=== PATIENT | female | born 1945 | race Caucasian/White ===

== ENCOUNTER → 2017-02-28 | Outpatient (CLI) | payer MEDICARE ==
[2017-02-28 13:02] LABS: Blood Urea Nitrogen 19 mg/dL (7-17); Non-African American GFR(MDRD) >60 (>60 ml/min/1.73 sqM)
--- NOTE | 2017-02-28 14:41 | CT ---
EXAMINATION TYPE: CT abdomen pelvis w con DATE OF EXAM: 02/28/2017 COMPARISON: NONE INDICATION: Patient has no complaints at time of service. Follow up study for known uterine CA. DLP: 1804 mGycm, Automated exposure control for dose reduction was used. CONTRAST: 100 mL of Omnipaque 300. Study performed with Oral Contrast TECHNIQUE: Axial images were obtained from above the diaphragm to the pubic rami in the axial plane a t 5 mm thick sections. Reconstructed images are reviewed on the computer in the coronal plane. FINDINGS: Limited CT sections are obtained the lung bases. The lung bases are clear. There is a consolidation at the left lung base. Correlate for pneumonia. Underlying mass is not excluded. One area measures 0 .9 cm in the posterior medial left lung base. A second area measures approximately 3.5 x 2.5 cm. This was not present previously. Coronary artery calcifications present. CT ABDOMEN: Liver: There is moderate fatty infiltration liver. Spleen: Normal Pancreas: Atrophic Adrenal glands: The adrenal glands are normal. Gallbladder: Normal Kidneys: No masses are evident. No hydronephrosis is present. No cysts are present. Delayed images were obtained through the kidneys, which remain unremarkable. Aorta: Vascular calcification is within the aorta. Inferior vena cava: Normal. CT PELVIS: Loops of bowel within the abdomen and pelvis are normal. Diverticulosis without acute diverticuli tis is through the sigmoid colon. Appendix: Normal as visualized. Urinary bladder: Normal. Genitourinary structures: Uterus and ovaries are surgically absent. Osseous structures: No suspicious lytic or sclerotic lesions. IMPRESSIONS: 1. Diverticulosis without acute diverticulitis. 2. Left base areas of increased density. Consolidation from pneumonia or metastatic disease could be considered. Clinical correlation and follow-up is recommended.
== END | disposition home or self-care (01) ==
LOC: RADCTMAIN 12:13
PROVIDERS: ATTEND Internal Medicine Hematology & Oncology
DX: K57.90 Diverticulosis of intestine, part unspecified, without perforation or abscess without bleeding (principal); R93.5 Abnormal findings on diagnostic imaging of other abdominal regions, including retroperitoneum; C54.9 Malignant neoplasm of corpus uteri, unspecified
CPT/HCPCS: 82565; 84520; 74177; 36415; Q9967

== ENCOUNTER → 2018-02-26 | Outpatient (CLI) | payer MEDICARE ==
--- NOTE | 2018-02-26 12:06 | CT ---
EXAMINATION TYPE: CT ChestAbdPelvis w con DATE OF EXAM: 02/26/2018 COMPARISON: 04/04/2017 and 02/28/2017 HISTORY: Malignant neoplasm of corpus uteri CT DLP: 1716.60 mGycm CONTRAST: CT scan of the chest, abdomen and pelvis is performed with Oral Contrast and with IV Contrast, patien t injected with 100 ml mL of Isovue 300. CT Chest: LUNGS: The lungs are clear and free of infiltrate or atelectasis. No pulmonary nodule or mass is det ected. No pleural effusion or CT evidence of interstitial lung disease. MEDIASTINUM: Thoracic aorta is of normal caliber. The heart is not enlarged. No evidence for media stinal mass or adenopathy. HILAR STRUCTURES: No evidence for mass. No hilar adenopathy is appreciated. OTHER: No significant abnormality. CONTRAST CT ABDOMEN AND PELVIS FINDINGS: LIVER/GB: No calcified gallstones. No space occupying hepatic lesion. Biliary tree is of normal ca liber. PANCREAS: No inflammation. No distinct mass. SPLEEN: No splenic enlargement. No lesion seen. ADRENALS: No nodule. No thickening. KIDNEYS/BLADDER: No hydronephrosis. No nephrolithiasis. No distinct solid renal mass. BOWEL: Normal appendix. Normal bowel caliber. No inflammation. Sigmoid diverticulosis without diver ticulitis. GENITAL ORGANS: Hysterectomy changes noted. Vaginal cuff is unremarkable. No adnexal masses. LYMPH NODES: No greater than 1cm abdominal or pelvic lymph nodes are appreciated. AORTA: No significant abnormality. OSSEOUS STRUCTURES: No significant abnormality is seen. OTHER: No significant additional abnormality is seen. IMPRESSION: 1. No evidence for recurrent disease or metastatic disease.
== END ==
LOC: RADCTMAIN 09:34
PROVIDERS: ATTEND Internal Medicine Hematology & Oncology
DX: C54.9 Malignant neoplasm of corpus uteri, unspecified (principal); R91.8 Other nonspecific abnormal finding of lung field
CPT/HCPCS: 82565; 84520; 71260; 74177; 36415; Q9967

== ENCOUNTER → 2018-07-11 | Outpatient (CLI) | payer MEDICARE ==
--- NOTE | 2018-07-13 09:19 | MM ---
Reason for exam: screening (asymptomatic). Last mammogram was performed 2 years and 2 months ago. History: Patient is postmenopausal, history of other cancer, and is nulliparous. Family history of breast cancer in mother at age 88. Benign left breast aspiration of the left breast, November 30, 2012. Physical Findings: A clinical breast exam by your physician is recommended on an annual basis and results should be correlated with mammographic findings. MG 3D Screening Mammo W/Cad Bilateral CC and MLO view(s) were taken. Prior study comparison: May 25, 2016, bilateral MG 3d screening mammo w/cad. November 29, 2013, bilateral MG screening mammo w CAD. The breast tissue is almost entirely fat. There seems to be a new medial superior skin lesion on the right. ASSESSMENT: Negative, BI-RAD 1 RECOMMENDATION: Routine screening mammogram of both breasts in 1 year. Manage on a clinical basis. Possible new medial right breast skin lesion.
== END | disposition home or self-care (01) ==
LOC: RADMAMWWP 11:31
PROVIDERS: ATTEND Family Medicine
DX: Z12.31 Encounter for screening mammogram for malignant neoplasm of breast (principal)
CPT/HCPCS: 77063; 77067

== ENCOUNTER → 2019-02-26 | Outpatient (CLI) | payer MEDICARE ==
--- NOTE | 2019-02-26 11:55 | CT ---
EXAMINATION TYPE: CT abdomen pelvis w con DATE OF EXAM: 02/26/2019 COMPARISON: 02/26/2018 HISTORY: 74-year-old female Uterine CA TECHNIQUE: Contiguous axial scanning of the abdomen and pelvis following administration of 100 ml Iso ralph 300 IV contrast. Delayed images through the kidneys and coronal/sagittal reconstructions perform ed. CT DLP: 1926.3 mGycm Automated exposure control for dose reduction was used. FINDINGS: Heart border line enlarged with extensive coronary vessel calcifications. Mitral annular calcificatio ns and aortic valvular calcifications are also noted. Large caliber to the main right pulmonary arter y 3.0 cm suggest underlying pulmonary arterial hypertension. Strandy lower lung atelectasis. No pleur al effusion. No focal liver lesion or biliary ductal dilatation. Portal venous system is patent. Gallbladder, right adrenal gland, kidneys, spleen, and atrophic pancreas show no abnormality. Minimal 7 mm nodularity of the left adrenal gland is unchanged. No dilated small bowel, free fluid, or free air. No mesenteric or retroperitoneal lymphadenopathy. Normal appendix. Mild to moderate stool burden. Left colonic diverticulosis without pericolonic infla mmatory change. Mild atherosclerotic calcifications abdominal aorta and iliac arteries. Tiny fatty umbilical hernia. Bladder partially distended. Uterus and ovaries surgically absent. Multiple pelvic phleboliths. No ab normal fluid collection in the pelvis or pelvic lymphadenopathy. Bones: Degenerative changes at the hips. Moderate to advanced multilevel degenerative disc disease th roughout the lumbar spine with grade 1 retrolisthesis at L2-L3 and L3-L4. Hypertrophic facet arthropa thy. IMPRESSION: 1. STATUS POST HYSTERECTOMY AND BILATERAL SALPINGO-OOPHORECTOMY. NO EVIDENCE FOR METASTATIC DISEASE I N THE ABDOMEN OR PELVIS. 2. LEFT-SIDED COLONIC DIVERTICULOSIS WITHOUT ACUTE DIVERTICULITIS.
== END | disposition home or self-care (01) ==
LOC: RADCTMAIN 08:58
PROVIDERS: ATTEND Internal Medicine Hematology & Oncology
DX: Z08 Encounter for follow-up examination after completed treatment for malignant neoplasm (principal); K57.30 Diverticulosis of large intestine without perforation or abscess without bleeding; Z90.710 Acquired absence of both cervix and uterus; Z90.722 Acquired absence of ovaries, bilateral; Z85.42 Personal history of malignant neoplasm of other parts of uterus
CPT/HCPCS: 82565; 84520; 74177; 36415; Q9967 ×2

== ENCOUNTER → 2019-08-07 | Outpatient (CLI) | payer MEDICARE ==
--- NOTE | 2019-08-08 15:13 | MM ---
Reason for exam: screening (asymptomatic). Last mammogram was performed 1 year and 1 month ago. History: Patient is postmenopausal, history of other cancer, and is nulliparous. Family history of breast cancer in mother at age 88. Benign left breast aspiration of the left breast, November 30, 2012. Physical Findings: A clinical breast exam by your physician is recommended on an annual basis and results should be correlated with mammographic findings. MG 3D Screening Mammo W/Cad Bilateral CC and MLO view(s) were taken. Prior study comparison: July 11, 2018, bilateral MG 3d screening mammo w/cad. May 25, 2016, bilateral MG 3d screening mammo w/cad. There are scattered fibroglandular densities. Finding: There are developing coarse heterogeneous, grouped/clustered calcifications in the upper outer quadrant, posterior position of the left breast. New finding since July 11, 2018 and May 25, 2016. ASSESSMENT: Incomplete: need additional imaging evaluation, BI-RAD 0 RECOMMENDATION: Special view mammogram of the left breast. [facility] will attempt to contact patient to return for supplemental views.
== END | disposition home or self-care (01) ==
LOC: RADMAMWWP 10:37
PROVIDERS: ATTEND Family Medicine
DX: Z12.31 Encounter for screening mammogram for malignant neoplasm of breast (principal); Z80.3 Family history of malignant neoplasm of breast
CPT/HCPCS: 77063; 77067

== ENCOUNTER → 2019-08-19 | Outpatient (CLI) | payer MEDICARE ==
--- NOTE | 2019-08-19 14:39 | MM ---
Reason for exam: additional evaluation requested from abnormal screening. Last mammogram was performed less than 1 month ago. History: Patient is postmenopausal, history of other cancer, and is nulliparous. Family history of breast cancer in mother at age 88. Benign left breast aspiration of the left breast, November 30, 2012. Physical Findings: Nurse did not find any significant physical abnormalities on exam. MG 3D Work Up W/Cad LT CC with magnification, ML with magnification, and ML view(s) were taken of the left breast. Prior study comparison: August 07, 2019, bilateral MG 3d screening mammo w/cad. July 11, 2018, bilateral MG 3d screening mammo w/cad. There are scattered fibroglandular densities. There are approximately four left upper outer quadrant calcifications at posterior depth nearly similar to 2016 with other scattered benign appearing left calcifications. Precautionary 6 month follow up left mammogram. These results were verbally communicated with the patient and result sheet given to the patient on 08/19/19. ASSESSMENT: Probably benign, BI-RAD 3 RECOMMENDATION: Follow-up diagnostic mammogram of the left breast in 6 months.
== END | disposition home or self-care (01) ==
LOC: RADMAMWWP 13:44
PROVIDERS: ATTEND Family Medicine
DX: R92.8 Other abnormal and inconclusive findings on diagnostic imaging of breast (principal)
CPT/HCPCS: 77065; G0279; 77061

== ENCOUNTER → 2020-02-25 | Outpatient (CLI) | payer MEDICARE ==
--- NOTE | 2020-02-25 12:59 | MM ---
Reason for exam: follow-up at short interval from prior study. Last mammogram was performed 6 months ago. History: Patient is postmenopausal, history of other cancer, and is nulliparous. Family history of breast cancer in mother at age 88. Benign left breast aspiration of the left breast, November 30, 2012. Physical Findings: Nurse did not find any significant physical abnormalities on exam. MG 3D Diag Mammo W/Cad LT CC, MLO, XCCL, and LM view(s) were taken of the left breast. Prior study comparison: August 19, 2019, left breast MG 3d work up w/cad LT. August 07, 2019, bilateral MG 3d screening mammo w/cad. There are scattered fibroglandular densities. Small grouped calcifications posterior upper outer quadrant left breast stable for 7 months. No significant new findings when compared with previous films. These results were verbally communicated with the patient and result sheet given to the patient on 02/25/20. ASSESSMENT: Probably benign, BI-RAD 3 RECOMMENDATION: Follow-up diagnostic mammogram of both breasts in 5 months. Back on schedule for July 2020.
== END | disposition home or self-care (01) ==
LOC: RADMAMWWP 10:13
PROVIDERS: ATTEND Family Medicine
DX: R92.8 Other abnormal and inconclusive findings on diagnostic imaging of breast (principal)
CPT/HCPCS: 77065; G0279; 77061

== ENCOUNTER → 2020-08-11 | Outpatient (CLI) | payer MEDICARE ==
--- NOTE | 2020-08-11 12:10 | MM ---
Reason for exam: additional evaluation requested from prior study. Last mammogram was performed 6 months ago. History: Patient is postmenopausal, history of other cancer, and is nulliparous. Family history of breast cancer in mother at age 88. Benign left breast aspiration of the left breast, November 30, 2012. Physical Findings: Nurse did not find any significant physical abnormalities on exam. MG 3D Diag Mammo W/Cad GWEN Bilateral CC and MLO view(s) were taken. Prior study comparison: February 25, 2020, left breast MG 3d diag mammo w/cad LT. August 19, 2019, left breast MG 3d work up w/cad LT. There are scattered fibroglandular densities. Finding: There are stable typically benign coarse heterogeneous calcifications in the upper outer quadrant, posterior position of the left breast. No significant changes in finding since February 25, 2020 and August 19, 2019. These results were verbally communicated with the patient and result sheet given to the patient on 08/11/20. ASSESSMENT: Benign, BI-RAD 2 RECOMMENDATION: Routine screening mammogram of both breasts in 1 year.
== END ==
LOC: RADMAMWWP 10:49
PROVIDERS: ATTEND Family Medicine
DX: R92.1 Mammographic calcification found on diagnostic imaging of breast (principal); Z80.3 Family history of malignant neoplasm of breast; Z78.0 Asymptomatic menopausal state
CPT/HCPCS: 77066; G0279; 77062

== ENCOUNTER → 2021-08-13 | Outpatient (CLI) | payer MEDICARE ==
--- NOTE | 2021-08-16 08:30 | MM ---
Reason for exam: screening (asymptomatic). Last mammogram was performed 1 year ago. History: Patient is postmenopausal, has history of endometrial cancer at age 70, and is nulliparous. Family history of breast cancer in mother at age 88. Benign left breast aspiration of the left breast, November 30, 2012. Physical Findings: A clinical breast exam by your physician is recommended on an annual basis and results should be correlated with mammographic findings. MG 3D Screening Mammo W/Cad Bilateral CC and MLO view(s) were taken. Prior study comparison: August 11, 2020, bilateral MG 3d diag mammo w/cad GWEN. February 25, 2020, left breast MG 3d diag mammo w/cad LT. There are scattered fibroglandular densities. Stable benign calcifications. There is no discrete abnormality. No significant changes when compared with prior studies. ASSESSMENT: Benign, BI-RAD 2 RECOMMENDATION: Routine screening mammogram of both breasts in 1 year.
== END | disposition home or self-care (01) ==
LOC: RADMAMWWP 10:49
PROVIDERS: ATTEND Family Medicine
DX: Z12.31 Encounter for screening mammogram for malignant neoplasm of breast (principal); Z80.3 Family history of malignant neoplasm of breast; Z78.0 Asymptomatic menopausal state
CPT/HCPCS: 77063; 77067

== ENCOUNTER → 2021-12-06 | Outpatient (CLI) | payer MEDICARE ==
--- NOTE | 2021-12-06 11:38 | XR ---
EXAMINATION TYPE: XR knee complete RT DATE OF EXAM: 12/06/2021 COMPARISON: NONE INDICATION: Fall and injury. TECHNIQUE: 3 views of the right knee. FINDINGS: Advanced degenerative changes of the right knee joint with narrowing of the medial tibiofemoral juan rtment, medial tibiofemoral subchondral sclerotic changes, tibiofemoral osteophytosis, sharp tibial s pines, narrowing of the patellofemoral compartment with significant patellofemoral osteophytosis. Sclerotic line seen in the lateral tibial plateau, likely chronic. No definite acute fracture line id entified. Small knee joint effusion. Arterial atherosclerotic calcifications. IMPRESSION: Marked degenerative changes of the right knee joint as detailed above. No definite acute fracture armen e identified however a subtle nondisplaced fracture cannot be excluded. Further imaging can be consid ered if clinically required.
== END | disposition home or self-care (01) ==
LOC: RADXRMAIN 10:53
PROVIDERS: ATTEND Family Medicine
DX: S80.911A Unspecified superficial injury of right knee, initial encounter (principal); M17.11 Unilateral primary osteoarthritis, right knee

== ENCOUNTER → 2023-03-17 | Outpatient (CLI) | payer MEDICARE ==
[2023-03-17 15:36] LABS: HCT 45.2 % (37.2-46.3); HGB 14.8 d/dL (12.0-15.0); MCH 31.5 pg (27.0-32.0); MCHC 32.7 d/dL (32.0-37.0); MCV 96.2 FL (80.0-97.0); Mean Platelet Volume 10.8 FL (9.5-12.2); NRBC Per 100 WBC 0 X 10*3/uL (0.00-0.01); Platelet Count 195 X 10*3/uL (140-440); RDW 13.3 % (11.5-14.5); WBC 6.18 X 10*3/uL (4.50-10.00)
[2023-03-17 16:58] LABS: Blood Urea Nitrogen 23.7 mg/dL (9.0-27.0); Carbon Dioxide 26.6 mmol/L (21.6-31.8); Chloride 107 mmol/L (96-109); Potassium 4.2 mmol/L (3.5-5.5); Sodium 147 mmol/L (135-145)
== END | disposition home or self-care (01) ==
LOC: LABPAT 09:15
PROVIDERS: ATTEND Internal Medicine Interventional Cardiology
DX: Z01.812 Encounter for preprocedural laboratory examination (principal); I35.0 Nonrheumatic aortic (valve) stenosis; R94.39 Abnormal result of other cardiovascular function study
CPT/HCPCS: 80051; 82565; 84520; 85027

== ENCOUNTER 2023-03-30 07:42 | Day surgery (SDC) | payer MEDICARE ==
[2023-03-30] MEDS ORDERED: ALPRAZolam 0.25 MG TAB PO PRN (07:51)
[2023-03-30] MEDS ORDERED: ALPRAZolam 0.5 MG TAB PO PRN (07:51)
[2023-03-30] MEDS ORDERED: ASPIRIN 325 MG TAB PO STA (07:51)
[2023-03-30] MEDS ORDERED: HEPARIN SODIUM,PORCINE 10,000 UNIT in SODIUM CHLORIDE 0.9% 1,000 ML IRRIGATION PRN (07:51)
[2023-03-30] MEDS ORDERED: ATORVASTATIN 80 MG TAB PO STA (07:51)
[2023-03-30] MEDS ORDERED: NITROGLYCERIN SL TABS 0.4 MG TAB SUBLINGUAL PRN (07:51)
[2023-03-30] MEDS ORDERED: HEPARIN SODIUM,PORCINE (1 ML) 2,500 UNIT in SODIUM CHLORIDE 0.9% 250 ML IRRIGATION PRN (07:51)
[2023-03-30] MEDS ORDERED: CLOPIDOGREL 75 MG TAB ONE (08:02)
[2023-03-30] MEDS ORDERED: VERAPAMIL 2.5 MG/ML 2 ML AMP ONE (08:13)
[2023-03-30] MEDS ORDERED: LIDOCAINE 1% INJ 10MG/ML (20 ML MDV) ONE (08:13)
[2023-03-30] MEDS ORDERED: SODIUM CHLORIDE 0.9% 1,000 ML IV ONE (08:14)
[2023-03-30] MEDS ORDERED: SODIUM CHLORIDE 0.9% 1,000 ML in EMPTY BAG 1 BAG IV ONE ×2 (08:17→08:18)
[2023-03-30 08:20] VITALS: RESP 16; TEMP 97.7
[2023-03-30] MEDS ORDERED: IV FLUID CONTINUATION 1,000 ML IV ONE (09:16)
[2023-03-30] MEDS ORDERED: fentaNYL (PF) 50 MCG/ML 2 ML AMP ONE (09:20)
[2023-03-30] MEDS ORDERED: HEPARIN SODIUM 1,000 UN/ML (10ML VL) ONE (09:21)
[2023-03-30] MEDS: BENZOCAINE SPRAY 1 CAN TOPICAL ONE ×2 (09:30→09:38)
[2023-03-30] MEDS ORDERED: MIDAZOLAM 2 MG/2 ML VIAL IVP ONE ×2 (09:39→10:13)
[2023-03-30] MEDS: fentaNYL (PF) 50 MCG/ML 2 ML AMP IVP ONE ×2 (09:39→10:27)
--- NOTE | 2023-03-30 10:03 | P.PCN ---
Date of Procedure: 03/30/23 Description of Procedure: Indication: Aortic stenosis Procedure Description: After explaining the procedure to the patient, it's risk and complications, blood pressure, heart rate and O2 saturation were monitored. The throat was sprayed with Cetacaine. Patient received 2 mg intravenous Versed, 50 mcg intra venous fentanyl. The probe was introduced into the esophagus without difficulty. Images were obtained. Following that, the probe was removed. There was no immediate complication. Findings: Left atrial size is dilated, left atrial appendage is normal. Left ventricular size and systolic function are normal. The aortic valve is a tricuspid valve, severely calcified with reduced opening, by planimetry the aortic valve area is 0.6 cm. Mitral annulus calcification was noted. The tricuspid valve appears to be normal. Mild atherosclerotic changes of the descending thoracic aorta was noted. No pericardial effusion was noted. Contrast bubble study revealed no shunting across the intra-atrial septum. Doppler: Pulse wave and color Doppler were obtained, an revealed moderate mitral and mild tricuspid regurgitation. There was no shunting across the intra-atrial septum. There was a difficulty in obtaining a gradient across aortic valve Conclusion: 1. Dilated left atrium 2. Normal left ventricular size and systolic function 3. Severe tricuspid aortic valve stenosis 4. Mitral annulus calcification with moderate mitral regurgitation 5. Mild tricuspid regurgitation
[2023-03-30] MEDS: LIDOCAINE 1% INJ 10MG/ML (20 ML MDV) SQ ONE ×2 (10:10→10:13)
[2023-03-30] MEDS: VERAPAMIL SYRINGE (5 MG/10 ML) INTRAARTER ONE ×2 (10:13→10:43)
[2023-03-30] MEDS ORDERED: HEPARIN SODIUM 1,000 UN/ML (10ML VL) IV ONE (10:29)
[2023-03-30] MEDS ORDERED: IOPAMIDOL-370 100ML BTL INJ ONE (10:36)
[2023-03-30 10:46] LABS: O2 Sat Blood Gas 75.7 %
[2023-03-30 10:49] LABS: O2 Sat Blood Gas 77.4 %
[2023-03-30 10:51] LABS: O2 Sat Blood Gas 94.4 %
[2023-03-30] MEDS ORDERED: RX INFO: IV CONTRAST WAS GIVEN 1 EACH MISC MISCELLANE PRN (10:58)
[2023-03-30] MEDS ORDERED: SODIUM CHLORIDE 0.9% 1,000 ML IV SCH (11:00)
--- NOTE | 2023-03-30 11:10 | P.CARDCATH ---
Date of Procedure: 03/30/23 Description of Procedure: Cardiac Catheterization: The patient is an 78-year-old female with a known history of hypertension, hyperlipidemia, severe aortic stenosis who had a recent abnormal MPI. Recommendations were made regarding cardiac catheterization, the risks and the complications were discussed with the patient who is in full understanding and agreement. Procedure Description: Patient was brought to central lab technician in fasting semi-sedated state after receiving Fentanyl and Benadryl achieiving moderate conscious sedated state. Using Xylocaine Anesthesia and modified Seldinger technique, a 6-Haitian sheath was introduced in the right radial artery . The intravenous catheter in the right basilic vein was exchanged to a 6-Haitian sheath. Right heart catheterization was performed using the [place] catheter, multiple samples and pressures were obtained. Cardiac output by thermodilution was calculated. Subsequently, selective coronary angiography was performed using a 5-Haitian [address] Multiple views of the coronary artery including hemiaxial views were obtained. The 6-Haitian AL1 catheter was used to cross the aortic valve and LVEDP was calculated. Following that, catheter and sheath were removed. Hemostasis was obtained with deployment of vascular band . There was no immediate complication. Patient was returned to room in stable condition. Of note, the patient received a total of 4000 units of intravenous heparin as well as intra-arterial verapamil. Findings: Fluoroscopy: Severe calcifications of the coronary arteries, aortic valve and mitral annulus were noted. Left main: This is a large size vessel, bifurcating into left circumflex and LAD, the distal left main has a 60-70% stenosis at the bifurcation the rest of the vessel has no high-grade stenosis LAD: This is a large size vessel, reaching to the apex giving rise to 2 diagonal branch, the LAD and branches have no evidence of high-grade stenosis Left circumflex: This is a large nondominant vessel giving rise to a large obtuse marginal branch. At the takeoff of the obtuse marginal branch there is an 80-90% stenosis, the rest of the vessel has no high-grade stenosis RCA: This is a large dominant vessel bifurcating into PDA and PLV, the right coronary artery has no obstructive disease. Left Ventriculogram: Not performed Hemodynamics: Cardiac output by Lilibeth of 7 L/m and by thermal 5.5 L/m. Right atrial saturation 76%, pulmonary artery 77% arterial 98%. Pulmonary artery systolic 40 with a diastolic of 10 and a mean of 24 mmHg, pulmonary capillary Wedge pressure A wave of 18 V-wave 16 with a mean of 10 mmHg, right ventricular systolic pressure of 40 with end diastolic of 2 mmHg. Right atrium A wave of 5 V-wave of 4 with a mean of 2 mmHg. Left ventricular end-diastolic pressure of 16 mmHg. Left ventricular systolic pressure of 203 with an ascending aorta of 147 mmHg with a peak gradient of 56 mmHg, aortic valve area 0.73 cm. Conclusion: 1. Severe calcifications involving the coronary arteries, aortic valve and mitral annulus 2. Severe distal left main disease 3. And severe disease in the left circumflex 4. Severe aortic stenosis Recommendations: The patient will be evaluated for aortic valve replacement and CABG. The findings and the recommendations were discussed with the patient and the family and they were in full understanding and agreement. Duration of sedation is 39 minutes.
[2023-03-30 13:02] VITALS: PULSE 84
[2023-03-30 15:12] VITALS: BP 150/71
--- NOTE | 2023-03-30 16:15 | P.GSCN ---
History of Present Illness Consult date: 03/30/23 Reason for Consult: Coronary artery disease and severe aortic valve stenosis Requesting physician: Mari Hu History of present illness: This is an 78-year-old female patient who follows on an outpatient basis for her primary care with Dr. Vargas and with Dr. Hu for her cardiology care. She is a past medical history for hypertension, dyslipidemia, CVA with no residual deficits in 2012 and is on Plavix as an outpatient, history of uterine cancer, status post hysterectomy and chemotherapy in 2015, osteoarthritis, remote history of nicotine dependence quit smoking 1967, family history of early onset coronary artery disease with her mother having undergone a three-vessel coronary artery bypass grafting surgery at age 53 and some medical debility requiring use of walker with ambulating. The patient recently had a physical exam completed by her primary care physician who heard a heart murmur and was subsequently referred to Dr. Hu from cardiology. The patient denies any complaints of shortness of breath, chest pain/chest pressure, headache, nausea, vomiting, hemoptysis, hematemesis, or lightheadedness, palpitations, presyncope or syncope. For further evaluation the patient underwent a nuclear Lexiscan Cardiolite stress test on 02/21/2023 which showed abnormal myocardial perfusion imaging with evidence of stress-induced ischemia involving the inferior and inferolateral wall and preserved systolic function. The findings were suggestive of obstructive coronary artery disease in the right order artery territory. On March 08 patient also underwent a carotid duplex study and a transthoracic 2-D echocardiogram. The transthoracic 2-D echocardiogram showed a normal left ventricular size with normal systolic function with ejection fraction of 55-60%, moderate mitral valve regurgitation, severe mitral annular calcification, aortic valve to be trileaflet, trace to mild aortic valve regurgitation, severe aortic valve stenosis with a valve area of 0.90 cm, a peak gradient of 62 mmHg, a mean gradient of 40 mmHg, mild to moderate tricuspid valve regurgitation, mild pulmonic valve regurgitation, and a pulmonary artery systolic pressure of 55 mmHg. The carotid duplex study showed a 16-49% stenosis to her bilateral internal carotid arteries. Subsequently, due to the patient's findings on her stress test and transthoracic 2-D echocardiogram she was recommended to undergo a cardiac catheterization and transesophageal echocardiogram which were completed today 03/30/2023. The cardiac catheterization demonstrated a 60-70% stenosis to the distal left main coronary artery, and an 80% to 90% stenosis to her circumflex coronary artery. Also during heart catheterization which showed severe aortic valve stenosis and severe calcifications involving the coronary arteries and aortic valve, and mitral annulus. The transesophageal echocardiogram demonstrated a normal left ventricular size and systolic function, severe tricuspid aortic valve stenosis, mitral annulus calcification with moderate mitral valve regurgitation and mild tricuspid valve regurgitation. Due to the findings on the cardiac catheterization and transesophageal echocardiogram a consult was placed to Dr. Citlaly ag from cardiothoracic surgery for further evaluation and treatment recommendations. Review of Systems A 14 point review of systems was completed and was negative except as mentioned in the HPI. Past Medical History Past Medical History: Cancer, CVA/TIA, Hyperlipidemia, Hypertension Additional Past Medical History / Comment(s): UTERINE CANCER- OR, CHEMO, RADIATION IMPLANT. 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 RIGHT HAND WEAKNESS, CVA 2012 History of Any Multi-Drug Resistant Organisms: None Reported Past Surgical History: Hysterectomy Additional Past Surgical History / Comment(s): JUL 2015 HYSTERECTOMY ([facility], DR. ROMANO). AUGUST 2015. PORTACATH D&C 1968 Past Anesthesia/Blood Transfusion Reactions: No Reported Reaction Past Psychological History: No Psychological Hx Reported Smoking Status: Former smoker Past Alcohol Use History: None Reported Past Drug Use History: None Reported - Past Family History Mother Family Medical History: Cancer, Coronary Artery Disease (CAD) (Bypass surgery at age 53), Myocardial Infarction ([place]) Additional Family Medical History / Comment(s): BREAST Father Family Medical History: COPD Medications and Allergies Home Medications Medication Instructions Recorded Confirmed Type Aspirin EC [Ecotrin] 81 mg PO DAILY 01/31/14 03/30/23 History Pravastatin Sodium [Pravachol] 40 mg PO HS 01/31/14 03/30/23 History amLODIPine BESYLATE/BENAZEPRIL 1 tab PO QAM 01/31/14 03/30/23 History [Lotrel 5-20 mg Capsule] cloNIDine HCL [Catapres] 0.2 mg PO BID 01/31/14 03/30/23 History Clopidogrel [Plavix] 75 mg PO DAILY 09/09/15 03/30/23 History Acetaminophen Tab [Tylenol Tab] 500 mg PO BID 03/27/23 03/27/23 History Allergies Allergy/AdvReac Type Severity Reaction Status Date / Time No Known Allergies Allergy Verified 03/27/23 11:05 Surgical - Exam Vital Signs Temp Pulse Resp BP Pulse Ox 97.7 F 89 16 157/72 97 03/30/23 08:14 03/30/23 08:14 03/30/23 08:14 03/30/23 08:14 03/30/23 08:14 - General well developed, well nourished, no distress, no pain, obese - Eyes PERRL, normal ocular movement, no pale, no icteric - ENT normal pinna, normal nares, normal mucosa, no hearing loss, no congestion - Neck Neck is supple, no lymphadenopathy. no masses, no bruits, trachea midline, no venous distension - Respiratory Lung sounds essentially clear throughout, diminished bilateral bases. No wheezes, rhonchi or crackles. Respirations are symmetrical and nonlabored. - Cardiovascular Regular rhythm and rate. S1 and S2 present, negative for S3, or gallop. Positive systolic murmur 3/6 heard best at the base. - Abdomen Abdomen soft, nontender and nondistended. Active bowel sounds present in all 4 abdominal quadrants. No guarding or rigidity. - Genitourinary Deferred - Rectum Deferred - Integumentary Skin is warm and dry. No clubbing or cyanosis is present. no rash, no growths, no abnormal pigmentation - Neurologic No focal deficits. - Musculoskeletal Medical debility, uses walker for gait - Psychiatric oriented to time, oriented to person, oriented to place, speech is normal, memory intact Results - Imaging Additional studies: Cardiac catheterization films and DARLINE films were reviewed by Dr. Mueller. Assessment and Plan Assessment: Severe aortic valve stenosis Coronary artery disease with left main disease Hypertension Dyslipidemia CVA with no residual deficits in 2012 is on Plavix as outpatient History of uterine Kratzer status post hysterectomy and chemotherapy in 2016 Osteoarthritis with medical debility, walks with a walker Remote history of nicotine dependence quit smoking in 1967 Early onset family history of coronary artery disease with her mother undergoing a three-vessel coronary artery bypass grafting surgery at age 53 Plan: The patient was seen and examined at her bedside in the extended stay unit in conjunction with Dr. Mueller from cardiac surgery. Her chart and diagnostics were reviewed. The patient's sister is present at her bedside with the patient. Dr. Mueller discussed the findings of the cardiac catheterization and DARLINE results. Treatment options were discussed with the patient including surgical option and TAVR procedure. The patient reports at this time she does not want to undergo any surgical type procedure or consider TAVR. She feels that she is too medically debilitated for the procedure and will follow-up with Dr. Hu with further recommendations to follow. Continue to optimize medical management. Thank you Dr. Hu for this consult and we will look for to follow him with you in the care of this patient. I have personally seen and examined the patient, performed the documentation and the assessment and plan as written. 30 minutes spent on the visit . Eduard COCHRANC Attending Addendum: Pt seen and evaluated with [employer] above. Agree with his assessment and plan. I spent 35 minutes reviewing the data and discussing the plan of care with the team. This is an 78 year-old frail asymptomatic female who presents for cardiac cath which reveals significant distal left main CAD and echo reveals . Given her frailty, we recommend staged PCI and TAVR. Time with Patient: Greater than 30
[2023-03-30] MEDS ORDERED: cloNIDine HCL 0.2 MG TAB PO SCH (21:00)
[2023-03-30] MEDS ORDERED: PRAVASTATIN SODIUM 40 MG TAB PO SCH (21:00)
[2023-03-31] MEDS ORDERED: CLOPIDOGREL 75 MG TAB PO SCH (09:00)
[2023-03-31] MEDS ORDERED: NON FORMULARY DRUG (Amlodipine Besylate/Benazepril [Lotrel 5-20 Mg] 1 EACH Capsule) PO SCH (09:00)
[2023-03-31] MEDS ORDERED: NON FORMULARY DRUG (Aspirin Ec 81 MG Tablet.Dr) PO SCH (09:00)
== END 2023-03-30 15:10 | disposition home or self-care (01) ==
LOC: CATHCVL 07:42
PROVIDERS: ATTEND Internal Medicine Interventional Cardiology
DX: I08.3 Combined rheumatic disorders of mitral, aortic and tricuspid valves (principal); E78.5 Hyperlipidemia, unspecified; I10 Essential (primary) hypertension; I25.10 Atherosclerotic heart disease of native coronary artery without angina pectoris; Z79.02 Long term (current) use of antithrombotics/antiplatelets; Z85.42 Personal history of malignant neoplasm of other parts of uterus; Z86.73 Personal history of transient ischemic attack (TIA), and cerebral infarction without residual deficits; Z87.891 Personal history of nicotine dependence; Z79.899 Other long term (current) drug therapy
CPT/HCPCS: 93312; 93320; 93325; 93460; 85018; 82810; C1769 ×3; C1894; C1751; J2250; J2001; J3010; J1644; Q9967

== ENCOUNTER → 2023-05-29 | Outpatient (CLI) | payer MEDICARE ==
[2023-05-29 10:34] LABS: NT-Pro-B-Type Natriuretic Pept 411 pg/mL
[2023-05-29 15:37] LABS: ALT 15 U/L (8-44); AST 17 U/L (13-35); Albumin 3.9 g/dL (3.8-4.9); Albumin/Globulin Ratio 2.17 Ratio (1.60-3.17); Alkaline Phosphatase 45 U/L (41-126); BUN/Creat Ratio 31.88 Ratio (12.00-20.00); Blood Urea Nitrogen 25.5 mg/dL (9.0-27.0); Calcium 9.6 mg/dL (8.7-10.3); Carbon Dioxide 24.8 mmol/L (21.6-31.8); Chloride 111 mmol/L (96-109); Chol/HDL Ratio 1.98 Ratio; Globulin 1.8 g/dL (1.6-3.3); Glucose 113 mg/dL (70-110); LDL Cholesterol,Calculated 51.9 mg/dL (0.0-131.0); Potassium 4.2 mmol/L (3.5-5.5); Sodium 148 mmol/L (135-145); Total Bilirubin 0.5 mg/dL (0.3-1.2); Total Protein 5.7 g/dL (6.2-8.2); VLDL Calculation 15.52 mg/dL (5.00-40.00)
== END | disposition home or self-care (01) ==
LOC: LABWHC1 09:18
PROVIDERS: ATTEND Internal Medicine Interventional Cardiology
DX: I35.0 Nonrheumatic aortic (valve) stenosis (principal); E78.2 Mixed hyperlipidemia
CPT/HCPCS: 36415; 80053; 80061; 83880

== ENCOUNTER → 2023-09-04 | Outpatient (CLI) | payer MEDICARE ==
--- NOTE | 2023-09-07 22:51 | MM ---
Reason for Exam: Screening (asymptomatic). Last screening mammogram was performed 12 month(s) ago. Patient History: Menarche at age 10. Patient has no children. Left ovary removed at age 70. Right ovary removed at age 70. Hysterectomy at age 70. Postmenopausal. 11/30/2012, Benign Cyst Aspiration on the left side. Mother had breast cancer, age 88. Risk Values: Radha 5 year model risk: 3.2%. NCI Lifetime model risk: 5.0%. Prior Study Comparison: 08/11/2020 Bilateral Diagnostic Mammogram, [facility]. 08/13/2021 Bilateral Screening Mammogram, [facility]. 08/15/2022 Bilateral MG 3D screening mammo w/cad, [facility]. Tissue Density: The breasts are almost entirely fatty. Findings: Analyzed By CAD. The pattern is symmetrical. There is some increasing group of round and punctate calcifications within the anterior right breast. Additional workup is recommended 9 indication views. Scattered benign calcifications are present bilaterally. The pattern is symmetrical. There is some increasing group of round and punctate calcifications within the anterior right breast. Additional workup is recommended with magnification views. Scattered benign calcifications are present bilaterally. Overall Assessment: Incomplete: need additional imaging evaluation, BI-RAD 0 Management: Diagnostic Mammogram of the right breast. A negative mammogram report should not preclude additional follow up of suspicious palpable abnormalities. Patient should continue monthly self breast exam. A clinical breast exam by your physician is recommended on an annual basis and results should be correlated with mammographic findings. Electronically signed and approved by: Clyde Pena D.O. Radiologis
== END | disposition home or self-care (01) ==
LOC: RADMAMWWP 11:49
PROVIDERS: ATTEND Family Medicine
DX: Z12.31 Encounter for screening mammogram for malignant neoplasm of breast (principal); Z78.0 Asymptomatic menopausal state; Z80.3 Family history of malignant neoplasm of breast
CPT/HCPCS: 77063; 77067

== ENCOUNTER → 2023-09-13 | Outpatient (CLI) | payer MEDICARE ==
--- NOTE | 2023-09-13 13:33 | MM ---
Reason for Exam: Additional evaluation requested from abnormal screening. Last screening mammogram was performed less than 1 month ago. Patient History: Menarche at age 10. Patient has no children. Left ovary removed at age 70. Right ovary removed at age 70. Hysterectomy at age 70. Postmenopausal. 11/30/2012, Benign Cyst Aspiration on the left side. Mother had breast cancer, age 88. Risk Values: Radha 5 year model risk: 3.2%. NCI Lifetime model risk: 5.0%. Prior Study Comparison: 08/19/2019 Left Diagnostic Mammogram, [facility]. 02/25/2020 Left Diagnostic Mammogram, [facility]. 08/11/2020 Bilateral Diagnostic Mammogram, [facility]. 08/13/2021 Bilateral Screening Mammogram, [facility]. 08/15/2022 Bilateral MG 3D screening mammo w/cad, [facility]. 09/04/2023 Bilateral MG 3D screening mammo w/cad, [facility]. Tissue Density: Right: There are scattered areas of fibroglandular density. Findings: Analyzed By CAD. On the magnification views there is grouped heterogenous calcifications with punctate calcifications in linear arrangement anterior. Calcifications appear suspicious. Stereotactic core biopsy is recommended. Overall Assessment: Suspicious, BI-RAD 4 Management: Stereotactic Core Biopsy of the right breast. A negative mammogram report should not preclude additional follow up of suspicious palpable abnormalities. Patient should continue monthly self breast exam. A clinical breast exam by your physician is recommended on an annual basis and results should be correlated with mammographic findings. Electronically signed and approved by: Clyde Pena D.O. Radiologis
== END | disposition home or self-care (01) ==
LOC: LABWHC1 12:48
PROVIDERS: ATTEND Family Medicine
DX: R92.321 Mammographic fibroglandular density, right breast (principal); Z78.0 Asymptomatic menopausal state; Z80.3 Family history of malignant neoplasm of breast
CPT/HCPCS: 77065; G0279; 77061

== ENCOUNTER → 2023-09-28 | Day surgery (SDC) | payer MEDICARE ==
[~2023-09-28] MED LIST: ALPRAZolam 0.25 MG TAB PO PRN
[2023-09-28 10:41] VITALS: RESP 16
[2023-09-28 11:26] VITALS: BP 96/61; PULSE 67; TEMP 98.1
== END ==
LOC: RADMAMWWP 09:59
PROVIDERS: ATTEND Surgery
DX: N60.81 Other benign mammary dysplasias of right breast (principal)
CPT/HCPCS: 88305; 19081; A4648; J2001

== ENCOUNTER → 2024-03-18 | Outpatient (CLI) | payer MEDICARE ==
--- NOTE | 2024-03-18 13:46 | MM ---
Reason for Exam: Follow-up at short interval from prior study. Last screening mammogram was performed 7 month(s) ago. Patient History: Menarche at age 10. Patient has no children. Left ovary removed at age 70. Right ovary removed at age 70. Hysterectomy at age 70. Postmenopausal. 09/28/2023, Benign MG stereo VAD BX RT on the right side. 11/30/2012, Benign Cyst Aspiration on the left side. Mother had breast cancer, age 88. Risk Values: Radha 5 year model risk: 3.7%. NCI Lifetime model risk: 5.4%. Prior Study Comparison: 08/15/2022 Bilateral MG 3D screening mammo w/cad, [facility]. 09/04/2023 Bilateral MG 3D screening mammo w/cad, [facility]. 09/13/2023 Right MG 3D work up w/cad RT, [facility]. Tissue Density: Right: There are scattered areas of fibroglandular density. Findings: Analyzed By CAD. Stable benign punctate calcifications. No suspicious clusters seen. No mass or distortion. Overall Assessment: Benign, BI-RAD 2 Management: Screening Mammogram of both breasts in 6 months. . Results were given to the patient verbally at the time of exam. Patient should continue monthly self-breast exams. A clinical breast exam by your physician is recommended on an annual basis. This exam should not preclude additional follow-up of suspicious palpable abnormalities. Note on Radha scores and lifetime risk: 1. A Radha score greater than 3% is considered moderate risk. If this is the case, consider specialist referral to assess eligibility for a risk reducing agent. 2. If overall lifetime risk for the development of breast cancer is 20% or higher, the patient may qualify for future screening with alternating mammogram and breast MRI. [facility], , 03/18/2024 1:37 PM. Electronically signed and approved by: Ronny Byrne M.D. Radiologis
== END | disposition home or self-care (01) ==
LOC: RADMAMWWP 13:06
PROVIDERS: ATTEND Surgery
DX: R92.8 Other abnormal and inconclusive findings on diagnostic imaging of breast
CPT/HCPCS: 77061; 77065

== ENCOUNTER → 2024-08-12 | Outpatient (CLI) | payer MEDICARE ==
[2024-08-12 16:34] LABS: ALT 20 U/L (8-44); AST 22 U/L (13-35); Albumin 3.9 g/dL (3.8-4.9); Albumin/Globulin Ratio 2.29 Ratio (1.60-3.17); Alkaline Phosphatase 60 U/L (41-126); BUN/Creat Ratio 25.33 Ratio (12.00-20.00); Blood Urea Nitrogen 22.8 mg/dL (9.0-27.0); Calcium 9.5 mg/dL (8.7-10.3); Carbon Dioxide 28.1 mmol/L (21.6-31.8); Chloride 110 mmol/L (96-109); Chol/HDL Ratio 2.08 Ratio; Globulin 1.7 g/dL (1.6-3.3); Glucose 98 mg/dL (70-110); LDL Cholesterol,Calculated 49.4 mg/dL (0.0-131.0); Potassium 4.6 mmol/L (3.5-5.5); Sodium 147 mmol/L (135-145); Total Bilirubin 0.6 mg/dL (0.3-1.2); Total Protein 5.6 g/dL (6.2-8.2)
== END | disposition home or self-care (01) ==
LOC: LABWHC1 09:22
PROVIDERS: ATTEND Internal Medicine Interventional Cardiology
DX: E78.2 Mixed hyperlipidemia (principal)
CPT/HCPCS: 36415; 80053; 80061

== ENCOUNTER → 2024-09-17 | Outpatient (CLI) | payer MEDICARE ==
--- NOTE | 2024-09-17 15:40 | MM ---
Reason for Exam: Screening (asymptomatic). Last mammogram was performed 1 year(s) and 1 month(s) ago. Patient History: Menarche at age 10. Patient has no children. Left ovary removed at age 70. Right ovary removed at age 70. Hysterectomy at age 70. Postmenopausal. 09/28/2023, Benign MG stereo VAD BX RT on the right side. 11/30/2012, Benign Cyst Aspiration on the left side. Mother had breast cancer, age 88. Risk Values: Radha 5 year model risk: 3.7%. NCI Lifetime model risk: 5.4%. Prior Study Comparison: 09/04/2023 Bilateral MG 3D screening mammo w/cad, [facility]. 09/13/2023 Right MG 3D work up w/cad RT, [facility]. 03/18/2024 Right MG 3D diag mammo w/cad RT, [facility]. Tissue Density: There are scattered areas of fibroglandular density. Findings: Analyzed By CAD. A few scattered benign round calcifications are noted. There is a new obliquely oriented band of density within the central left breast CC view not seen on prior exams. Further evaluation recommended. Otherwise, no significant change. Overall Assessment: Incomplete: need additional imaging evaluation, BI-RAD 0 Management: Special View Mammogram of the left breast. To include 3-D CC nipple in profile, 3-D CC rolled, and 3-D lateral views. [facility] will attempt to contact patient to return for supplemental views and ultrasound if indicated. [facility], , 09/17/2024 3:37 PM. Electronically signed and approved by: Jenn Dunne M.D. Radiologist
== END | disposition home or self-care (01) ==
LOC: RADMAMWWP 12:31
PROVIDERS: ATTEND Family Medicine
DX: Z12.31 Encounter for screening mammogram for malignant neoplasm of breast (principal); R92.323 Mammographic fibroglandular density, bilateral breasts; Z78.0 Asymptomatic menopausal state; Z80.3 Family history of malignant neoplasm of breast
CPT/HCPCS: 77063; 77067

== ENCOUNTER → 2024-10-03 | Outpatient (CLI) | payer MEDICARE ==
--- NOTE | 2024-10-03 12:14 | MM ---
Reason for Exam: Additional evaluation requested from abnormal screening. Last screening mammogram was performed less than 1 month ago. Patient History: Menarche at age 10. Patient has no children. Left ovary removed at age 70. Right ovary removed at age 70. Hysterectomy at age 70. Postmenopausal. 09/28/2023, Benign MG stereo VAD BX RT on the right side. 11/30/2012, Benign Cyst Aspiration on the left side. Mother had breast cancer, age 88. Risk Values: Radha 5 year model risk: 3.7%. NCI Lifetime model risk: 5.4%. Prior Study Comparison: 09/13/2023 Right MG 3D work up w/cad RT, [facility]. 03/18/2024 Right MG 3D diag mammo w/cad RT, [facility]. 09/17/2024 Bilateral MG 3D screening mammo w/cad, [facility]. Tissue Density: Left: There are scattered areas of fibroglandular density. Findings: Analyzed By CAD. Density in question does not persist. No masses are present. Overall Assessment: Negative, BI-RAD 1 Management: Screening Mammogram of both breasts in 1 year. . Results were given to the patient verbally at the time of exam. Patient should continue monthly self-breast exams. A clinical breast exam by your physician is recommended on an annual basis. This exam should not preclude additional follow-up of suspicious palpable abnormalities. Note on Radha scores and lifetime risk: 1. A Radha score greater than 3% is considered moderate risk. If this is the case, consider specialist referral to assess eligibility for a risk reducing agent. 2. If overall lifetime risk for the development of breast cancer is 20% or higher, the patient may qualify for future screening with alternating mammogram and breast MRI. [facility], , 10/03/2024 12:11 PM. Electronically signed and approved by: Ronny Byrne M.D. Radiologis
== END | disposition home or self-care (01) ==
LOC: RADMAMWWP 11:00
PROVIDERS: ATTEND Family Medicine
DX: R92.8 Other abnormal and inconclusive findings on diagnostic imaging of breast (principal); R92.323 Mammographic fibroglandular density, bilateral breasts; Z78.0 Asymptomatic menopausal state; Z80.3 Family history of malignant neoplasm of breast
CPT/HCPCS: 77061; 77065

== ENCOUNTER 2024-11-02 19:24 | Inpatient (IN) | payer MEDICARE ==
--- NOTE | 2024-11-02 19:35 | ED ---
Weakness HPI - General Chief complaint: Weakness Stated complaint: Pain/Trouble walking Time Seen by Provider: 11/02/24 19:30 Source: family, RN notes reviewed, old records reviewed Mode of arrival: wheelchair Limitations: no limitations - History of Present Illness Initial comments: This is a 79-year-old female she presents today for evaluation in regards to back pain shortness of breath sore throat weakness increasing for the last couple days to weeks. Patient presents with valley member who has noticed a significant decline in activity level as of late. Maybe also noticing some more confusion but mainly increased weakness MD Complaint: generalized weakness, lack of energy -: days(s) Location: generalized Severity: moderate Severity scale (1-10): 4 Consistency: constant Improves with: none Worsens with: none Context: recent illness, history of similar Associated Symptoms: confusion, loss of appetite, shortness of breath - Related Data Home Medications Medication Instructions Recorded Confirmed Aspirin EC [Ecotrin] 81 mg PO DAILY 01/31/14 11/03/24 amLODIPine BESYLATE/BENAZEPRIL 1 cap PO DAILY 01/31/14 11/03/24 [Lotrel 5-20 mg Capsule] cloNIDine HCL [Catapres] 0.2 mg PO BID 01/31/14 11/03/24 Clopidogrel [Plavix] 75 mg PO DAILY 09/09/15 11/03/24 Atorvastatin Calcium [Lipitor] 40 mg PO DAILY 11/03/24 11/03/24 Allergies Allergy/AdvReac Type Severity Reaction Status Date / Time No Known Allergies Allergy Verified 11/03/24 10:09 Review of Systems ROS Statement: Those systems with pertinent positive or pertinent negative responses have been documented in the HPI. ROS Other: All systems not noted in ROS Statement are negative. Past Medical History Past Medical History: Cancer, CVA/TIA, Hyperlipidemia, Hypertension Additional Past Medical History / Comment(s): UTERINE CANCER- OR, CHEMO, RADIATION IMPLANT. 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 RIGHT HAND WEAKNESS, CVA 2012. Right breast cyst biopsy 2012, benign History of Any Multi-Drug Resistant Organisms: None Reported Past Surgical History: Hysterectomy Additional Past Surgical History / Comment(s): JUL 2015 HYSTERECTOMY ([facility], DR. ROMANO). AUGUST 2015. PORTACATH D&C 1968 Past Anesthesia/Blood Transfusion Reactions: No Reported Reaction Past Psychological History: No Psychological Hx Reported Smoking Status: Former smoker Past Alcohol Use History: None Reported Past Drug Use History: None Reported - Past Family History Father Family Medical History: COPD Mother Family Medical History: Cancer, Coronary Artery Disease (CAD), Myocardial Infarction ([place]) Additional Family Medical History / Comment(s): BREAST General Exam Limitations: no limitations General appearance: alert, in no apparent distress Head exam: Present: atraumatic, normocephalic, normal inspection Eye exam: Present: normal appearance, PERRL, EOMI. Absent: scleral icterus, conjunctival injection, periorbital swelling ENT exam: Present: normal exam, mucous membranes moist Neck exam: Present: normal inspection. Absent: tenderness, meningismus, lymphadenopathy Respiratory exam: Present: normal lung sounds bilaterally. Absent: respiratory distress, wheezes, rales, rhonchi, stridor Cardiovascular Exam: Present: regular rate, normal rhythm, normal heart sounds. Absent: systolic murmur, diastolic murmur, rubs, gallop, clicks GI/Abdominal exam: Present: soft, normal bowel sounds. Absent: distended, tenderness, guarding, rebound, rigid Extremities exam: Present: normal inspection, full ROM, normal capillary refill. Absent: tenderness, pedal edema, joint swelling, calf tenderness Back exam: Present: normal inspection Neurological exam: Present: alert, oriented X3, CN II-XII intact Psychiatric exam: Present: normal affect, normal mood Skin exam: Present: warm, dry, intact, normal color. Absent: rash Course Vital Signs 11/02/24 11/02/24 11/02/24 19:27 20:15 22:00 Temperature 97.8 F Pulse Rate 69 73 63 Respiratory 18 12 15 Rate Blood Pressure 86/37 96/38 95/46 O2 Sat by Pulse 100 96 95 Oximetry 11/03/24 11/03/24 11/03/24 00:00 00:08 00:17 Temperature 97.4 F L 97.7 F Pulse Rate 63 67 66 Respiratory 14 16 12 Rate Blood Pressure 90/36 91/40 95/46 O2 Sat by Pulse 96 97 Oximetry 11/03/24 11/03/24 11/03/24 00:37 02:00 02:55 Temperature 97.2 F L 97.6 F Pulse Rate 53 L 64 67 Respiratory 14 11 L 15 Rate Blood Pressure 95/46 101/47 111/48 O2 Sat by Pulse 97 Oximetry 11/03/24 04:45 Temperature 97.2 F L Pulse Rate 68 Respiratory 14 Rate Blood Pressure 103/46 O2 Sat by Pulse 95 Oximetry - Reevaluation(s) Reevaluation #1: 11/02/24 20:41 Medical records reviewed Reevaluation #2: 11/02/24 21:46 Patient symptoms relatively unchanged and he in the ER but blood pressure is improved Reevaluation #3: 11/02/24 21:46 Patient informed of results questions answered Reevaluation #4: Was pt. sent in by a medical professional or institution (, PA, DEPUTY JAILER, urgent care, hospital, or penitentiary...) When possible be specific @ -no Did you speak to anyone other than the patient for history (EMS, parent, family, police, friend...)? What history was obtained from this source @ -no Did you review nursing and triage notes (agree or disagree)? Why? @ -agree Are old charts reviewed (outside hosp., previous admission, EMS record, old EKG, old radiological studies, urgent care reports/EKG's, penitentiary records)? Report findings @ -yes Differential Diagnosis (chest pain, altered mental status, abdominal pain women, abdominal pain men, vaginal bleeding, weakness, fever, dyspnea, syncope, headache, dizziness, GI bleed, back pain, seizure, CVA, palpatations, mental health, musculoskeletal)? @ -prior EKG interpreted by me (3pts min.). @ -yes X-rays interpreted by me (1pt min.). @ -yes negative for acute disease CT interpreted by me (1pt min.). @ -yes negative for acute disease U/S interpreted by me (1pt. min.). @ -no What testing was considered but not performed or refused? (CT, X-rays, U/S, labs)? Why? @ -none What meds were considered but not given or refused? Why? @ -none Did you discuss the management of the patient with other professionals (professionals i.e. , DANAE, DEPUTY JAILER, lab, RT, psych nurse, psychologist social, supervisor accounting clerks, teacher, medical scientific officer, case managers)? Give summary @ -no Was smoking cessation discussed for >3mins.? @ -no Was critical care preformed (if so, how long)? @ -[id number] Were there social determinants of health that impacted care today? How? (Homelessness, low income, unemployed, alcoholism, drug addiction, transportation, low edu. Level, literacy, decrease access to med. care, snf, rehab)? @ -none Was there de-escalation of care discussed even if they declined (Discuss DNR or withdrawal of care, Hospice)? DNR status @ -no What co-morbidities impacted this encounter? (DM, HTN, Smoking, COPD, CAD, Cancer, CVA, ARF, Chemo, Hep., AIDS, mental health diagnosis, sleep apnea, morbid obesity)? @ -none Was patient admitted / discharged? Hospital course, mention meds given and route, prescriptions, significant lab abnormalities, going to OR and other pertinent info. @ - 79 female to ER for evaluation of weakness generalized weakness with significant anemia here in the ER non-ST elevated [place] with mildly elevated troponin no EKG changes no chest pain, patient will be admitted for transfusion, cardiac observation Admitted Undiagnosed new problem with uncertain prognosis? @ -no Drug Therapy requiring intensive monitoring for toxicity (Heparin, Nitro, Insulin, Cardizem)? @ -no Were any procedures done? @ -no Diagnosis/symptom? @ -Abdominal pain weakness anemia non-ST elevated [place] Acute, or Chronic, or Acute on Chronic? @ -Acute Uncomplicated (without systemic symptoms) or Complicated (systemic symptoms)? @ -Complicated Side effects of treatment? @ -no Exacerbation, Progression, or Severe Exacerbation? @ -exacerbation Poses a threat to life or bodily function? How? (Chest pain, [place], [place], pneumonia, PE, COPD, DKA, ARF, appy, cholecystitis, CVA, Diverticulitis, Homicidal, Suicidal, threat to staff... and all critical care pts) @ -yes extremes of age Reevaluation #5: Differential Weakness: Hypoglycemia, shock, sepsis, hyponatremia, anemia, infection, [place], ETOH, adverse medicine reaction, overdose, stroke, this is not meant to be an all-inclusive list. - Consultations Consultation #1: Spoke with Dr. Vargas who agrees to admit this patient EKG Findings - EKG Comments: EKG Findings:: EKG is sinus 68 MN 141 QRS 98 QTc 420 - EKG Results: EKG: interpreted by ERMD Medical Decision Making - Medical Decision Making 79 female to ER for evaluation of weakness generalized weakness with significant anemia here in the ER non-ST elevated [place] with mildly elevated troponin no EKG changes no chest pain, patient will be admitted for transfusion, cardiac observation - Lab Data Result diagrams: 11/09/24 07:25 11/09/24 07:25 Lab Results 11/02/24 11/02/24 11/02/24 Range/Units 19:43 19:43 19:43 WBC (4.50-10.00) 10*3/uL RBC (4.10-5.20) 10*6/uL Hgb (12.0-15.0) g/dL Hct (37.2-46.3) % MCV (80.0-97.0) fL MCH (27.0-32.0) pg MCHC (32.0-37.0) g/dL Plt Count (140-440) 10*3/uL MPV (9.5-12.2) fL Immature Gran % (Auto) % Neutrophils % % Lymphocytes % % Monocytes % % Eosinophils % % Basophils % % Immature Gran # (0.00-0.04) 10*3/uL Neutrophils # (1.80-7.70) 10*3/uL Lymphocytes # (0.90-5.00) 10*3/uL Monocytes # (0.20-1.00) 10*3/uL Eosinophils # (0.04-0.35) 10*3/uL Basophils # (0.00-0.10) 10*3/uL PT 11.6 (10.0-12.5) sec INR 1.1 (<1.2) APTT 21.1 L (22.0-30.0) sec Sodium 139 (137-145) mmol/L Potassium 4.1 (3.5-5.1) mmol/L Chloride 108 H (98-107) mmol/L Carbon Dioxide 23 (22-30) mmol/L Anion Gap 8 mmol/L BUN 45 H (7-17) mg/dL Creatinine 1.31 H (0.52-1.04) mg/dL Est GFR (CKD-EPI)AfAm 44 (>60 ml/min/1.73 sqM) Est GFR (CKD-EPI)NonAf 38 (>60 ml/min/1.73 sqM) Glucose 100 H (74-99) mg/dL Lactic Ac Sepsis Rflx Plasma Lactic Acid Rick 2.4 H* (0.7-2.0) mmol/L Calcium 9.0 (8.4-10.2) mg/dL Phosphorus 4.8 H (2.5-4.5) mg/dL Magnesium 2.0 (1.6-2.3) mg/dL Total Bilirubin 0.6 (0.2-1.3) mg/dL AST 22 (14-36) U/L ALT 18 (4-34) U/L Alkaline Phosphatase 51 (38-126) U/L Troponin I (0.000-0.034) ng/mL NT-Pro-B Natriuret Pep 898 pg/mL Total Protein 4.9 L (6.3-8.2) g/dL Albumin 3.0 L (3.5-5.0) g/dL Blood Type Blood Type Confirm Blood Type Recheck Bld Type Recheck Status Antibody Screen Crossmatch Spec Expiration Date 11/02/24 11/02/24 11/02/24 Range/Units 19:43 20:30 21:31 WBC 7.75 (4.50-10.00) 10*3/uL RBC 1.90 L (4.10-5.20) 10*6/uL Hgb 6.0 L* (12.0-15.0) g/dL Hct 18.4 L* (37.2-46.3) % MCV 96.8 (80.0-97.0) fL MCH 31.6 (27.0-32.0) pg MCHC 32.6 (32.0-37.0) g/dL Plt Count 155 (140-440) 10*3/uL MPV 11.6 (9.5-12.2) fL Immature Gran % (Auto) 0.5 % Neutrophils % 74.6 % Lymphocytes % 17.9 % Monocytes % 5.8 % Eosinophils % 0.9 % Basophils % 0.3 % Immature Gran # 0.04 (0.00-0.04) 10*3/uL Neutrophils # 5.78 (1.80-7.70) 10*3/uL Lymphocytes # 1.39 (0.90-5.00) 10*3/uL Monocytes # 0.45 (0.20-1.00) 10*3/uL Eosinophils # 0.07 (0.04-0.35) 10*3/uL Basophils # 0.02 (0.00-0.10) 10*3/uL PT (10.0-12.5) sec INR (<1.2) APTT (22.0-30.0) sec Sodium (137-145) mmol/L Potassium (3.5-5.1) mmol/L Chloride (98-107) mmol/L Carbon Dioxide (22-30) mmol/L Anion Gap mmol/L BUN (7-17) mg/dL Creatinine (0.52-1.04) mg/dL Est GFR (CKD-EPI)AfAm (>60 ml/min/1.73 sqM) Est GFR (CKD-EPI)NonAf (>60 ml/min/1.73 sqM) Glucose (74-99) mg/dL Lactic Ac Sepsis Rflx Y Plasma Lactic Acid Rick (0.7-2.0) mmol/L Calcium (8.4-10.2) mg/dL Phosphorus (2.5-4.5) mg/dL Magnesium (1.6-2.3) mg/dL Total Bilirubin (0.2-1.3) mg/dL AST (14-36) U/L ALT (4-34) U/L Alkaline Phosphatase (38-126) U/L Troponin I 0.077 H* (0.000-0.034) ng/mL NT-Pro-B Natriuret Pep pg/mL Total Protein (6.3-8.2) g/dL Albumin (3.5-5.0) g/dL Blood Type Blood Type Confirm Blood Type Recheck Bld Type Recheck Status Antibody Screen Crossmatch Spec Expiration Date 11/02/24 11/02/24 Range/Units 21:55 22:00 WBC (4.50-10.00) 10*3/uL RBC (4.10-5.20) 10*6/uL Hgb (12.0-15.0) g/dL Hct (37.2-46.3) % MCV (80.0-97.0) fL MCH (27.0-32.0) pg MCHC (32.0-37.0) g/dL Plt Count (140-440) 10*3/uL MPV (9.5-12.2) fL Immature Gran % (Auto) % Neutrophils % % Lymphocytes % % Monocytes % % Eosinophils % % Basophils % % Immature Gran # (0.00-0.04) 10*3/uL Neutrophils # (1.80-7.70) 10*3/uL Lymphocytes # (0.90-5.00) 10*3/uL Monocytes # (0.20-1.00) 10*3/uL Eosinophils # (0.04-0.35) 10*3/uL Basophils # (0.00-0.10) 10*3/uL PT (10.0-12.5) sec INR (<1.2) APTT (22.0-30.0) sec Sodium (137-145) mmol/L Potassium (3.5-5.1) mmol/L Chloride (98-107) mmol/L Carbon Dioxide (22-30) mmol/L Anion Gap mmol/L BUN (7-17) mg/dL Creatinine (0.52-1.04) mg/dL Est GFR (CKD-EPI)AfAm (>60 ml/min/1.73 sqM) Est GFR (CKD-EPI)NonAf (>60 ml/min/1.73 sqM) Glucose (74-99) mg/dL Lactic Ac Sepsis Rflx Plasma Lactic Acid Rick (0.7-2.0) mmol/L Calcium (8.4-10.2) mg/dL Phosphorus (2.5-4.5) mg/dL Magnesium (1.6-2.3) mg/dL Total Bilirubin (0.2-1.3) mg/dL AST (14-36) U/L ALT (4-34) U/L Alkaline Phosphatase (38-126) U/L Troponin I (0.000-0.034) ng/mL NT-Pro-B Natriuret Pep pg/mL Total Protein (6.3-8.2) g/dL Albumin (3.5-5.0) g/dL Blood Type A Positive Blood Type Confirm A Positive Blood Type Recheck No Previous Record Bld Type Recheck Status CABO Indicated Antibody Screen NEGATIVE Crossmatch See Detail Spec Expiration Date 11/05/20242299 - EKG Data -: EKG Interpreted by Me - Radiology Data Radiology results: report reviewed (Chest x-ray negative for acute disease CT abdomen pelvis negative for acute disease), image reviewed Critical Care Time Critical Care Time: Yes Total Critical Care Time: 31 Disposition Clinical Impression: Dehydration, Weakness, Anemia, NSTEMI (non-ST elevated myocardial infarction) Disposition: ADMITTED IP TO THIS HOSP Condition: Serious Is patient prescribed a controlled substance at d/c from ED?: No Time of Disposition: 21:45
[2024-11-02] MEDS: MORPHINE SULFATE 4 MG/ML SYRINGE IV STA (19:45)
[2024-11-02] MEDS: ONDANSETRON 4 MG/2 ML VIAL IVP STA (19:46)
[2024-11-02] MEDS: SODIUM CHLORIDE 0.9% 1,000 ML IV ONE (19:48)
[2024-11-02 20:21] LABS: ALT 18 U/L (4-34); AST 22 U/L (14-36); African American GFR (CKD) 44 (>60 ml/min/1.73 sqM); Alkaline Phosphatase 51 U/L (38-126); Anion Gap 8 mmol/L; Blood Urea Nitrogen 45 mg/dL (7-17); Carbon Dioxide 23 mmol/L (22-30); Chloride 108 mmol/L (98-107); Glucose 100 mg/dL (74-99); Non-African American GFR(CKD) 38 (>60 ml/min/1.73 sqM); Phosphorus 4.8 mg/dL (2.5-4.5); Potassium 4.1 mmol/L (3.5-5.1); Sodium 139 mmol/L (137-145); Total Bilirubin 0.6 mg/dL (0.2-1.3); Total Protein 4.9 g/dL (6.3-8.2)
[2024-11-02 20:29] LABS: NT-Pro-B-Type Natriuretic Pept 898 pg/mL
[2024-11-02 21:22] LABS: INR 1.1 (<1.2); Prothrombin Time 11.6 sec (10.0-12.5)
[2024-11-02 21:33] LABS: Partial Thromboplastin Time 21.1 sec (22.0-30.0)
[2024-11-02 21:39] LABS: Basophils # (A) 0.02 10*3/uL (0.00-0.10); Basophils % (A) 0.3 %; Eosinophils # (A) 0.07 10*3/uL (0.04-0.35); Eosinophils % (A) 0.9 %; Lymphocytes # (A) 1.39 10*3/uL (0.90-5.00); Lymphocytes % (A) 17.9 %; MCH 31.6 pg (27.0-32.0); MCHC 32.6 g/dL (32.0-37.0); MCV 96.8 fL (80.0-97.0); Mean Platelet Volume 11.6 fL (9.5-12.2); Monocytes # (A) 0.45 10*3/uL (0.20-1.00); Monocytes % (A) 5.8 %; Neutrophils # (A) 5.78 10*3/uL (1.80-7.70); Neutrophils % (A) 74.6 %; Platelet Count 155 10*3/uL (140-440); RDW 15.9 % (11.5-14.5); WBC 7.75 10*3/uL (4.50-10.00)
--- NOTE | 2024-11-02 21:41 | CT ---
EXAMINATION TYPE: CT abdomen pelvis wo con DATE OF EXAM: 11/02/2024 9:00 PM COMPARISON: CT abdomen pelvis most recent from 03/05/2020. CLINICAL INDICATION: Female, 79 years old with history of pain; abdominal pain and weakness TECHNIQUE: Axial CT abdomen pelvis wo con;Sagittal and coronal reformats were created on a separate workstation. Contrast used: mL of , (none if empty) Oral contrast used: without Oral Contrast (none if empty) CT DLP: 847.7 mGycm, Automated exposure control for dose reduction was used. FINDINGS: LOWER CHEST: Mitral valve annular calcifications. Severe coronary artery calcifications. ABDOMEN LIVER: Unremarkable GALLBLADDER AND BILE DUCTS: Unremarkable. PANCREAS: Unremarkable. SPLEEN: Unremarkable. ADRENAL GLANDS: Unremarkable. KIDNEYS AND URETERS: No evidence of hydronephrosis or obstructing renal calculus. The ureters are unr emarkable. PELVIS BLADDER: No evidence for wall thickening or mass given limitations of exam. REPRODUCTIVE: The uterus is surgically absent. ABDOMEN & PELVIS STOMACH AND BOWEL: No evidence of bowel obstruction. Scattered colonic diverticula. Appendix normal. PERITONEUM/RETROPERITONEUM: No evidence of pneumoperitoneum or free fluid. VASCULATURE: No evidence of aortic aneurysm. MUSCULOSKELETAL: No acute osseous abnormalities. Moderate disc degeneration changes are present throu ghout the thoracolumbar spine. LYMPH NODES: No gross evidence for lymphadenopathy. SOFT TISSUE/ABDOMINAL WALL: Unremarkable IMPRESSION: 1. No evidence for acute abdominal process. 2. Colonic diverticulosis. 3. Normal appendix. 4. No obstructive uropathy or renal calculus. 5. Severe coronary artery atherosclerosis. 6. Mitral valve annular cusp patient's.. [facility], , 11/02/2024 9:39 PM
--- NOTE | 2024-11-02 21:42 | XR ---
EXAMINATION TYPE: XR chest 2V DATE OF EXAM: 11/02/2024 9:02 PM COMPARISON: Chest radiographs from 09/10/2015. CLINICAL INDICATION: Female, 79 years old with history of pain; TECHNIQUE: XR chest 2V Frontal and lateral views of the chest. FINDINGS: Lungs/Pleura: Elevated right diaphragm. There is no evidence of pleural effusion, focal consolidation , or pneumothorax. Pulmonary vascularity: Unremarkable. Heart/mediastinum: Cardiomediastinal silhouette is unremarkable. Musculoskeletal: No acute osseous pathology. IMPRESSION: No acute cardiopulmonary disease/process. [facility], , 11/02/2024 9:40 PM
[2024-11-02 21:43] LABS: HCT 18.4 % (37.2-46.3)
[2024-11-02] MEDS: SODIUM CHLORIDE 0.9% 500 ML 500 ML IV ONE (22:00)
[2024-11-02] MEDS ORDERED: MORPHINE SULFATE 4 MG/ML SYRINGE IV PRN (22:28)
[2024-11-02] MEDS ORDERED: NALOXONE 0.4 MG/ML 1 ML VIAL IV PRN (22:28)
[2024-11-02] MEDS ORDERED: ACETAMINOPHEN TAB 325 MG TAB PO PRN (22:28)
[2024-11-02] MEDS: ASPIRIN 81 MG PO STA (23:46)
[2024-11-02 23:57] LABS: Appearance,Urine Clear (Clear); Bacteria,Urine Many /hpf; Bilirubin,Urine Negative (Negative); Blood,Urine Negative (Negative); Color,Urine Colorless; Glucose,Urine (UA) Negative (Negative); Hyaline Casts,Urine 8 /lpf (0-2); Ketones,Urine Negative (Negative); Leukocyte Esterase,Urine Large (Negative); Mucus,Urine Rare /hpf; Nitrite,Urine Positive (Negative); Protein,Urine Negative (Negative); RBC,Urine 1 /hpf (0-5); Specific Gravity,Urine 1.021 (1.001-1.035); Squamous Epithelial Cell,Urine 1 /hpf (0-4); Urobilinogen,Urine <2.0 mg/dL (<2.0); WBC,Urine 12 /hpf (0-5)
[2024-11-03] MEDS: DEXTROSE 5%-0.9% NACL 1,000 ML IV SCH (07:05)
[2024-11-03] MEDS: PANTOPRAZOLE 40 MG/10 ML VIAL IV SCH (08:28)
[2024-11-03] MEDS: ASPIRIN 325 MG TAB PO SCH (08:33)
[2024-11-03 08:38] LABS: Basophils # (A) 0.02 10*3/uL (0.00-0.10); Basophils % (A) 0.3 %; Eosinophils # (A) 0.08 10*3/uL (0.04-0.35); HCT 22.9 % (37.2-46.3); HGB 7.3 g/dL (12.0-15.0); Lymphocytes # (A) 1.41 10*3/uL (0.90-5.00); Lymphocytes % (A) 18.4 %; MCH 30.3 pg (27.0-32.0); MCHC 31.9 g/dL (32.0-37.0); Mean Platelet Volume 11.4 fL (9.5-12.2); Monocytes # (A) 0.52 10*3/uL (0.20-1.00); Monocytes % (A) 6.8 %; Neutrophils # (A) 5.61 10*3/uL (1.80-7.70); Neutrophils % (A) 73.2 %; Platelet Count 143 10*3/uL (140-440); RBC 2.41 10*6/uL (4.10-5.20); RDW 17.2 % (11.5-14.5); WBC 7.66 10*3/uL (4.50-10.00)
[2024-11-03 08:57] LABS: ALT 16 U/L (4-34); AST 19 U/L (14-36); African American GFR (CKD) 64 (>60 ml/min/1.73 sqM); Albumin 2.6 g/dL (3.5-5.0); Alkaline Phosphatase 45 U/L (38-126); Anion Gap 4 mmol/L; Blood Urea Nitrogen 41 mg/dL (7-17); Calcium 8.1 mg/dL (8.4-10.2); Carbon Dioxide 22 mmol/L (22-30); Chloride 115 mmol/L (98-107); Glucose 89 mg/dL (74-99); Non-African American GFR(CKD) 56 (>60 ml/min/1.73 sqM); Phosphorus 3.7 mg/dL (2.5-4.5); Potassium 3.9 mmol/L (3.5-5.1); Sodium 141 mmol/L (137-145); Total Bilirubin 0.9 mg/dL (0.2-1.3); Total Protein 4.4 g/dL (6.3-8.2)
--- NOTE | 2024-11-03 09:18 | P.GSCN ---
History of Present Illness Consult date: 11/03/24 Reason for Consult: EMEA, GI bleed History of present illness: This an 79-year-old female who has profound anemia. Patient is Hemoccult blood positive. Patient denies seeing any bright red blood per rectum. She is currently on Plavix. Past Medical History Past Medical History: Cancer, CVA/TIA, Hyperlipidemia, Hypertension Additional Past Medical History / Comment(s): UTERINE CANCER- OR, CHEMO, RADIATION IMPLANT. 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 RIGHT HAND WEAKNESS, CVA 2012. Right breast cyst biopsy 2012, benign, left breast cyst biopsy History of Any Multi-Drug Resistant Organisms: None Reported Past Surgical History: Hysterectomy Additional Past Surgical History / Comment(s): JUL 2015 HYSTERECTOMY ([facility], DR. ROMANO). AUGUST 2015. PORTACATH D&C 1967 Past Anesthesia/Blood Transfusion Reactions: No Reported Reaction Past Psychological History: No Psychological Hx Reported Smoking Status: Former smoker Past Alcohol Use History: None Reported Additional Past Alcohol Use History / Comment(s): STARTED 1959, QUIT 1967 Past Drug Use History: None Reported - Past Family History Father Family Medical History: COPD Mother Family Medical History: Cancer, Coronary Artery Disease (CAD), Myocardial Infarction ([place]) Additional Family Medical History / Comment(s): BREAST Medications and Allergies Home Medications Medication Instructions Recorded Confirmed Type Aspirin EC [Ecotrin] 81 mg PO DAILY 01/31/14 11/03/24 History Pravastatin Sodium [Pravachol] 40 mg PO HS 01/31/14 09/28/23 History amLODIPine BESYLATE/BENAZEPRIL 1 tab PO QAM 01/31/14 11/03/24 History [Lotrel 5-20 mg Capsule] cloNIDine HCL [Catapres] 0.2 mg PO BID 01/31/14 11/03/24 History Clopidogrel [Plavix] 75 mg PO DAILY 09/09/15 11/03/24 History Acetaminophen Tab [Tylenol Tab] 500 mg PO BID PRN 03/27/23 11/03/24 History Allergies Allergy/AdvReac Type Severity Reaction Status Date / Time No Known Allergies Allergy Verified 11/02/24 19:29 Surgical - Exam Vital Signs Temp Pulse Resp BP Pulse Ox 97.8 F 69 18 86/37 100 11/02/24 19:27 11/02/24 19:27 11/02/24 19:27 11/02/24 19:27 11/02/24 19:27 - General well developed, well nourished, no distress - Eyes PERRL - ENT normal pinna - Neck no masses - Respiratory normal expansion - Cardiovascular Rhythm: regular - Abdomen Abdomen: soft, non tender Results - Labs 11/03/24 07:21 11/03/24 07:21 Abnormal Lab Results - Last 24 Hours (Table) 11/02/24 11/02/24 11/02/24 Range/Units 19:43 19:43 19:43 RBC (4.10-5.20) 10*6/uL Hgb (12.0-15.0) g/dL Hct (37.2-46.3) % MCHC (32.0-37.0) g/dL APTT 21.1 L (22.0-30.0) sec Chloride 108 H (98-107) mmol/L BUN 45 H (7-17) mg/dL Creatinine 1.31 H (0.52-1.04) mg/dL Glucose 100 H (74-99) mg/dL Plasma Lactic Acid Rick 2.4 H* (0.7-2.0) mmol/L Calcium (8.4-10.2) mg/dL Phosphorus 4.8 H (2.5-4.5) mg/dL Troponin I (0.000-0.034) ng/mL Total Protein 4.9 L (6.3-8.2) g/dL Albumin 3.0 L (3.5-5.0) g/dL Urine Nitrite (Negative) Ur Leukocyte Esterase (Negative) Urine WBC (0-5) /hpf Urine Bacteria (None) /hpf Hyaline Casts (0-2) /lpf Urine Mucus (None) /hpf Stool Occult Blood (Negative) Crossmatch 11/02/24 11/02/24 11/02/24 Range/Units 19:43 21:31 22:00 RBC 1.90 L (4.10-5.20) 10*6/uL Hgb 6.0 L* (12.0-15.0) g/dL Hct 18.4 L* (37.2-46.3) % MCHC (32.0-37.0) g/dL APTT (22.0-30.0) sec Chloride (98-107) mmol/L BUN (7-17) mg/dL Creatinine (0.52-1.04) mg/dL Glucose (74-99) mg/dL Plasma Lactic Acid Rick (0.7-2.0) mmol/L Calcium (8.4-10.2) mg/dL Phosphorus (2.5-4.5) mg/dL Troponin I 0.077 H* (0.000-0.034) ng/mL Total Protein (6.3-8.2) g/dL Albumin (3.5-5.0) g/dL Urine Nitrite (Negative) Ur Leukocyte Esterase (Negative) Urine WBC (0-5) /hpf Urine Bacteria (None) /hpf Hyaline Casts (0-2) /lpf Urine Mucus (None) /hpf Stool Occult Blood (Negative) Crossmatch See Detail 11/02/24 11/02/24 11/02/24 Range/Units 23:10 23:24 23:45 RBC (4.10-5.20) 10*6/uL Hgb (12.0-15.0) g/dL Hct (37.2-46.3) % MCHC (32.0-37.0) g/dL APTT (22.0-30.0) sec Chloride (98-107) mmol/L BUN (7-17) mg/dL Creatinine (0.52-1.04) mg/dL Glucose (74-99) mg/dL Plasma Lactic Acid Rick (0.7-2.0) mmol/L Calcium (8.4-10.2) mg/dL Phosphorus (2.5-4.5) mg/dL Troponin I 0.071 H* (0.000-0.034) ng/mL Total Protein (6.3-8.2) g/dL Albumin (3.5-5.0) g/dL Urine Nitrite Positive H (Negative) Ur Leukocyte Esterase Large H (Negative) Urine WBC 12 H (0-5) /hpf Urine Bacteria Many H (None) /hpf Hyaline Casts 8 H (0-2) /lpf Urine Mucus Rare H (None) /hpf Stool Occult Blood Positive H (Negative) Crossmatch 11/03/24 11/03/24 Range/Units 07:21 07:21 RBC 2.41 L (4.10-5.20) 10*6/uL Hgb 7.3 L (12.0-15.0) g/dL Hct 22.9 L (37.2-46.3) % MCHC 31.9 L (32.0-37.0) g/dL APTT (22.0-30.0) sec Chloride 115 H (98-107) mmol/L BUN 41 H (7-17) mg/dL Creatinine (0.52-1.04) mg/dL Glucose (74-99) mg/dL Plasma Lactic Acid Rick (0.7-2.0) mmol/L Calcium 8.1 L (8.4-10.2) mg/dL Phosphorus (2.5-4.5) mg/dL Troponin I (0.000-0.034) ng/mL Total Protein 4.4 L (6.3-8.2) g/dL Albumin 2.6 L (3.5-5.0) g/dL Urine Nitrite (Negative) Ur Leukocyte Esterase (Negative) Urine WBC (0-5) /hpf Urine Bacteria (None) /hpf Hyaline Casts (0-2) /lpf Urine Mucus (None) /hpf Stool Occult Blood (Negative) Crossmatch Diabetes panel 11/02/24 11/03/24 Range/Units 19:43 07:21 Sodium 139 141 (137-145) mmol/L Potassium 4.1 3.9 (3.5-5.1) mmol/L Chloride 108 H 115 H (98-107) mmol/L Carbon Dioxide 23 22 (22-30) mmol/L BUN 45 H 41 H (7-17) mg/dL Creatinine 1.31 H 0.96 (0.52-1.04) mg/dL Glucose 100 H 89 (74-99) mg/dL Calcium 9.0 8.1 L (8.4-10.2) mg/dL AST 22 19 (14-36) U/L ALT 18 16 (4-34) U/L Alkaline Phosphatase 51 45 (38-126) U/L Total Protein 4.9 L 4.4 L (6.3-8.2) g/dL Albumin 3.0 L 2.6 L (3.5-5.0) g/dL Calcium panel 11/02/24 11/03/24 Range/Units 19:43 07:21 Calcium 9.0 8.1 L (8.4-10.2) mg/dL Phosphorus 4.8 H 3.7 (2.5-4.5) mg/dL Albumin 3.0 L 2.6 L (3.5-5.0) g/dL Pituitary panel 11/02/24 11/03/24 Range/Units 19:43 07:21 Sodium 139 141 (137-145) mmol/L Potassium 4.1 3.9 (3.5-5.1) mmol/L Chloride 108 H 115 H (98-107) mmol/L Carbon Dioxide 23 22 (22-30) mmol/L BUN 45 H 41 H (7-17) mg/dL Creatinine 1.31 H 0.96 (0.52-1.04) mg/dL Glucose 100 H 89 (74-99) mg/dL Calcium 9.0 8.1 L (8.4-10.2) mg/dL Adrenal panel 11/02/24 11/03/24 Range/Units 19:43 07:21 Sodium 139 141 (137-145) mmol/L Potassium 4.1 3.9 (3.5-5.1) mmol/L Chloride 108 H 115 H (98-107) mmol/L Carbon Dioxide 23 22 (22-30) mmol/L BUN 45 H 41 H (7-17) mg/dL Creatinine 1.31 H 0.96 (0.52-1.04) mg/dL Glucose 100 H 89 (74-99) mg/dL Calcium 9.0 8.1 L (8.4-10.2) mg/dL Total Bilirubin 0.6 0.9 (0.2-1.3) mg/dL AST 22 19 (14-36) U/L ALT 18 16 (4-34) U/L Alkaline Phosphatase 51 45 (38-126) U/L Total Protein 4.9 L 4.4 L (6.3-8.2) g/dL Albumin 3.0 L 2.6 L (3.5-5.0) g/dL Assessment and Plan Assessment: GI bleed on Plavix. Patient will be evaluated cardiology. Once cleared she will be scheduled for colonoscopy and upper endoscopy on Monday.
--- NOTE | 2024-11-03 11:24 | P.CRDCN ---
History of Present Illness History of present illness: HISTORY OF PRESENT ILLNESS: This is a 79-year-old female with a past medical history significant for coronary artery disease, severe aortic stenosis, hypertension, hyperlipidemia, and CVA in 2012. Patient follows in the office with Dr. Hu. We have been asked to see the patient in consultation for elevated troponins. Patient examined at the bedside. Patient presented to the hospital with a chief complaint of generalized weakness. Patient was found to have a hemoglobin of 6.0. Previous hemoglobin 13.6. She is on aspirin and Plavix on an outpatient basis. Patient denies any blood in her stools or dark stools. Patient denies any chest pain or pressure. Denies any shortness of breath. DIAGNOSTICS: - EKG reveals sinus mechanism with no signs of acute ischemia. - Chest xray negative for acute process. - Laboratory data: WBC 7.75. Hemoglobin 6.0. Platelet count 155. Sodium 141. Potassium 3.9. BUN 41. Creatinine 0.96. Troponin 0.071. 0.059. - Current home cardiac medications include aspirin 81 mg daily, Plavix 75 mg daily, Catapres 0.2 mg twice daily, atorvastatin 40 mg daily, and amlodipine/benazepril 5-20 mg daily. - Patient underwent DARLINE in March 2023 revealing severe tricuspid aortic valve stenosis, moderate mitral regurgitation, mild tricuspid regurgitation and normal left ventricular size and systolic function - Cardiac catheterization history: March 2023 revealing 70% distal left main, 90% mid circumflex, right dominant system. REVIEW OF SYSTEMS: At the time of my exam: CONSTITUTIONAL: Denies fever or chills. HEENT: Denies blurred vision, vision changes, or eye pain. Denies hemoptysis CARDIOVASCULAR: Denies chest pain. Denies orthopnea. Denies PND. Denies palpitations RESPIRATORY: Denies shortness of breath. GASTROINTESTINAL: Denies abdominal pain. Denies nausea or vomiting. HEMATOLOGIC: Denies bleeding disorders. GENITOURINARY: Denies any blood in urine. SKIN: Denies pruitis. Denies rash. PHYSICAL EXAM: VITAL SIGNS: Reviewed. GENERAL: Well-developed in no acute distress. HEENT: Head is normocephalic. Pupils are equal, round. Sclerae anicteric. Mucous membranes of the mouth are moist. Neck supple. No JVD or thyromegaly LUNGS: Respirations even and unlabored. Lungs essentially clear to auscultation bilaterally. HEART: Regular rate and rhythm. S1 and S2 heard. Systolic murmur noted ABDOMEN: Soft. Nondistended. Nontender. EXTREMITIES: Normal range of motion. No clubbing or cyanosis. Peripheral pulses intact. No lower extremity edema NEUROLOGIC: Awake and alert. Oriented x 3. ASSESSMENT: Acute blood loss anemia Acute GI bleed Severe aortic stenosis, declining intervention Coronary artery disease Hypertension Hyperlipidemia PLAN: Obtain 2D echo to assess cardiac structure and function Hold aspirin and Plavix. Dr. Eddy recommends resuming Plavix once GI bleed has stabilized and discontinuing aspirin Hold antihypertensive medications as patient's blood pressure is on the low side this morning with a reading of 103/46. Patient tentatively scheduled for endoscopy on Monday Patient is high risk to undergo endoscopy due to severe aortic stenosis and CAD. However there are no absolute contraindications for patient to proceed Further recommendations pending patient course Nurse practitioner note has been reviewed by physician. Signing provider agrees with the documented findings, assessment, and plan of care documented by [employer] as a scribe. Past Medical History Past Medical History: Cancer, CVA/TIA, Hyperlipidemia, Hypertension Additional Past Medical History / Comment(s): UTERINE CANCER- OR, CHEMO, RADIATION IMPLANT. 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 RIGHT HAND WEAKNESS, CVA 2012. Right breast cyst biopsy 2012, benign, left breast cyst biopsy History of Any Multi-Drug Resistant Organisms: None Reported Past Surgical History: Hysterectomy Additional Past Surgical History / Comment(s): JUL 2015 HYSTERECTOMY ([facility], DR. ROMANO). AUGUST 2015. PORTACATH D&C 1967 Past Anesthesia/Blood Transfusion Reactions: No Reported Reaction Past Psychological History: No Psychological Hx Reported Smoking Status: Former smoker Past Alcohol Use History: None Reported Additional Past Alcohol Use History / Comment(s): STARTED 1959, QUIT 1967 Past Drug Use History: None Reported - Past Family History Father Family Medical History: COPD Mother Family Medical History: Cancer, Coronary Artery Disease (CAD), Myocardial Infarction ([place]) Additional Family Medical History / Comment(s): BREAST Medications and Allergies Home Medications Medication Instructions Recorded Confirmed Type Aspirin EC [Ecotrin] 81 mg PO DAILY 01/31/14 11/03/24 History amLODIPine BESYLATE/BENAZEPRIL 1 cap PO DAILY 01/31/14 11/03/24 History [Lotrel 5-20 mg Capsule] cloNIDine HCL [Catapres] 0.2 mg PO BID 01/31/14 11/03/24 History Clopidogrel [Plavix] 75 mg PO DAILY 09/09/15 11/03/24 History Atorvastatin Calcium [Lipitor] 40 mg PO DAILY 11/03/24 11/03/24 History Allergies Allergy/AdvReac Type Severity Reaction Status Date / Time No Known Allergies Allergy Verified 11/03/24 10:09 Physical Exam Vitals: Vital Signs Temp Pulse Pulse Resp BP BP Pulse Ox 11/03/24 08:24 97.1 F L 78 18 109/45 97 11/03/24 08:00 18 11/03/24 06:12 71 18 11/03/24 05:50 97.9 F 71 18 114/63 98 11/03/24 04:45 97.2 F L 68 14 103/46 95 11/03/24 02:55 97.6 F 67 15 111/48 11/03/24 02:00 64 11 L 101/47 97 11/03/24 00:37 97.2 F L 53 L 14 95/46 11/03/24 00:17 97.7 F 66 12 95/46 97 11/03/24 00:08 97.4 F L 67 16 91/40 11/03/24 00:00 63 14 90/36 96 11/02/24 22:00 63 15 95/46 95 11/02/24 20:15 73 12 96/38 96 11/02/24 19:27 97.8 F 69 18 86/37 100 Intake and Output 11/02/24 11/03/24 11/03/24 22:59 06:59 14:59 Intake Total 310 Balance 310 Intake: Blood Product 310 Rc Irr As1 Unit 310 [id number] Other: Voiding Method Toilet Toilet # Voids 1 Weight 66.224 kg 66.224 kg Results 11/03/24 07:21 11/03/24 07:21 Cardiac Enzymes 11/02/24 11/02/24 11/02/24 Range/Units 19:43 19:43 23:24 AST 22 (14-36) U/L Troponin I 0.077 H* 0.071 H* (0.000-0.034) ng/mL 11/03/24 11/03/24 Range/Units 07:21 07:21 AST 19 (14-36) U/L Troponin I 0.059 H* (0.000-0.034) ng/mL Coagulation 11/02/24 Range/Units 19:43 PT 11.6 (10.0-12.5) sec APTT 21.1 L (22.0-30.0) sec CBC 11/02/24 11/03/24 Range/Units 21:31 07:21 WBC 7.75 7.66 (4.50-10.00) 10*3/uL RBC 1.90 L 2.41 L (4.10-5.20) 10*6/uL Hgb 6.0 L* 7.3 L (12.0-15.0) g/dL Hct 18.4 L* 22.9 L (37.2-46.3) % Plt Count 155 143 (140-440) 10*3/uL Comprehensive Metabolic Panel 11/02/24 11/03/24 Range/Units 19:43 07:21 Sodium 139 141 (137-145) mmol/L Potassium 4.1 3.9 (3.5-5.1) mmol/L Chloride 108 H 115 H (98-107) mmol/L Carbon Dioxide 23 22 (22-30) mmol/L BUN 45 H 41 H (7-17) mg/dL Creatinine 1.31 H 0.96 (0.52-1.04) mg/dL Glucose 100 H 89 (74-99) mg/dL Calcium 9.0 8.1 L (8.4-10.2) mg/dL AST 22 19 (14-36) U/L ALT 18 16 (4-34) U/L Alkaline Phosphatase 51 45 (38-126) U/L Total Protein 4.9 L 4.4 L (6.3-8.2) g/dL Albumin 3.0 L 2.6 L (3.5-5.0) g/dL Current Medications Generic Name Dose Route Start Last Admin Trade Name Freq PRN Reason Stop Dose Admin Acetaminophen 650 mg 11/02/24 22:28 Acetaminophen Tab 325 Mg Tab PO Q6HR PRN Mild Pain or Fever > 100.5 Dextrose/Sodium Chloride 1,000 mls @ 50 mls/hr 11/03/24 06:45 11/03/24 07:05 Dextrose 5%-Ns Iv Soln IV 50 mls/hr .Q20H LISA Administration Morphine Sulfate 4 mg 11/02/24 22:28 Morphine Sulfate 4 Mg/Ml Syringe IV Q4HR PRN Severe Pain (Scale 7 to 10) Naloxone HCl 0.2 mg 11/02/24 22:28 Naloxone 0.4 Mg/Ml 1 Ml Vial IV Q2M PRN Opioid Reversal Ondansetron HCl 4 mg 11/02/24 22:28 Ondansetron 4 Mg/2 Ml Vial IVP Q8HR PRN Nausea And Vomiting Pantoprazole Sodium 40 mg 11/03/24 09:00 11/03/24 08:28 Pantoprazole 40 Mg/10 Ml Vial IV 40 mg DAILY LISA Administration Intake and Output 11/02/24 11/03/24 11/03/24 22:59 06:59 14:59 Intake Total 310 Balance 310 Intake: Blood Product 310 Rc Irr As1 Unit 310 [id number] Other: Voiding Method Toilet Toilet # Voids 1 Weight 66.224 kg 66.224 kg 11/03/24 07:21 11/03/24 07:21
--- NOTE | 2024-11-03 13:32 | P.HPIM ---
History of Present Illness H&P Date: 11/03/24 History of present illness; patient is a 79-year-old lady with past medical history significant for hyperlipidemia, hypertension presents the ER because of generalized weakness. Patient stated for the last couple of days she has not been feeling her usual self. Patient has been having generalized body aches and feeling lethargic and weakness. Patient stated she was getting short of breath on exertion. Patient also complaining of back pain. Denies any chest pain.. Patient denies any palpitation. There is no complaint of orthopnea or PND. Denies any nausea, vomiting abdominal pain. Patient denies any blood in the stools. There is no complaint of loss of appetite or recent weight loss . patient denies any complaint of dizziness. There is no complaint of headache. Because of the symptoms, patient came to the ER Initial lab work done in the ER showed WBC 7.75, hemoglobin 6, platelet count 155, sodium 139, potassium 4.1, BUN 45, creatinine 1.31, lactate 2.4 phosphorus 4.8 AST 22, ALT 18, troponin 0.077 UA positive for nitrite, large amount of leukocyte Estrace, urine WBC 12 EKG done in the ER showed heart rate of 68 , no ST segment elevation or depression seen, no T-wave inversions seen. Chest x-ray done in the ER showed no acute cardiopulmonary process CT abdomen and pelvis done showed no acute abdominal process. Patient admitted to internal medicine service REVIEW OF SYSTEMS: CONSTITUTIONAL: No fever, no malaise, no fatigue. HEENT: No recent visual problems or hearing problems. Denied any sore throat. CARDIOVASCULAR: No chest pain, orthopnea, PND, no palpitations, no syncope. PULMONARY: No shortness of breath, no cough, no hemoptysis. GASTROINTESTINAL: As mentioned above NEUROLOGICAL: No headaches, no weakness, no numbness. HEMATOLOGICAL: Denies any bleeding or petechiae. GENITOURINARY: Denies any burning micturition, frequency, or urgency. MUSCULOSKELETAL/RHEUMATOLOGICAL: Denies any joint pain, swelling, or any muscle pain. ENDOCRINE: Denies any polyuria or polydipsia. The rest of the 14-point review of systems is negative. PHYSICAL EXAMINATION: GENERAL: The patient is alert and oriented x3, not in any acute distress. Well developed, well nourished. HEENT: Pupils are round and equally reacting to light. EOMI. No scleral icterus. No conjunctival pallor. Normocephalic, atraumatic. No pharyngeal erythema. No thyromegaly. CARDIOVASCULAR: S1 and S2 present. No murmurs, rubs, or gallops. PULMONARY: Chest is clear to auscultation, no wheezing or crackles. ABDOMEN: Soft, nontender, nondistended, normoactive bowel sounds. No palpable organomegaly. MUSCULOSKELETAL: No joint swelling or deformity. EXTREMITIES: No cyanosis, clubbing, or pedal edema. NEUROLOGICAL: Gross neurological examination did not reveal any focal deficits. SKIN: No rashes. Assessment and plan Anemia Elevated troponin Acute kidney injury Blood in stools Lactic acidosis UTI Hypertension Hyperlipidemia Monitor vital signs Monitor CBC Monitor CMP Continue telemetry monitoring Ordered serial troponin Ordered anemia workup with vitamin B12, folic acid levels, iron saturation Ordered CRP, ESR Start IV Rocephin Start IV Protonix Start IV fluids Hold amlodipine/benazepril for now Hold aspirin and Plavix Ordered 2D echo Consult cardiology Consult surgery for anemia and positive FOBT, currently there is no GI coverage available the hospital Labs and medication were reviewed.. Continue same treatment. Continue with symptomatic treatment. Resume home medication. Monitor labs and vitals. DVT and GI prophylaxis. Further recommendations as per clinical course of the patient Dictation was produced using [email or web address] dictation software. please excuse any grammatical, word or spelling errors. Past Medical History Past Medical History: Cancer, CVA/TIA, Hyperlipidemia, Hypertension Additional Past Medical History / Comment(s): UTERINE CANCER- OR, CHEMO, RADIATION IMPLANT. 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 RIGHT HAND WEAKNESS, CVA 2012. Right breast cyst biopsy 2012, benign, left breast cyst biopsy History of Any Multi-Drug Resistant Organisms: None Reported Past Surgical History: Hysterectomy Additional Past Surgical History / Comment(s): JUL 2015 HYSTERECTOMY ([facility], DR. ROMANO). AUGUST 2015. PORTACATH D&C 1967 Past Anesthesia/Blood Transfusion Reactions: No Reported Reaction Past Psychological History: No Psychological Hx Reported Smoking Status: Former smoker Past Alcohol Use History: None Reported Additional Past Alcohol Use History / Comment(s): STARTED 1959, QUIT 1967 Past Drug Use History: None Reported - Past Family History Father Family Medical History: COPD Mother Family Medical History: Cancer, Coronary Artery Disease (CAD), Myocardial Infarction ([place]) Additional Family Medical History / Comment(s): BREAST Medications and Allergies Home Medications Medication Instructions Recorded Confirmed Type Aspirin EC [Ecotrin] 81 mg PO DAILY 01/31/14 11/03/24 History amLODIPine BESYLATE/BENAZEPRIL 1 cap PO DAILY 01/31/14 11/03/24 History [Lotrel 5-20 mg Capsule] cloNIDine HCL [Catapres] 0.2 mg PO BID 01/31/14 11/03/24 History Clopidogrel [Plavix] 75 mg PO DAILY 09/09/15 11/03/24 History Atorvastatin Calcium [Lipitor] 40 mg PO DAILY 11/03/24 11/03/24 History Allergies Allergy/AdvReac Type Severity Reaction Status Date / Time No Known Allergies Allergy Verified 11/03/24 10:09 Physical Exam Vitals: Vital Signs Temp Pulse Pulse Resp BP BP Pulse Ox 11/03/24 12:00 82 18 109/61 97 11/03/24 08:24 97.1 F L 78 18 109/45 97 11/03/24 08:00 18 11/03/24 06:12 71 18 11/03/24 05:50 97.9 F 71 18 114/63 98 11/03/24 04:45 97.2 F L 68 14 103/46 95 11/03/24 02:55 97.6 F 67 15 111/48 11/03/24 02:00 64 11 L 101/47 97 11/03/24 00:37 97.2 F L 53 L 14 95/46 11/03/24 00:17 97.7 F 66 12 95/46 97 11/03/24 00:08 97.4 F L 67 16 91/40 11/03/24 00:00 63 14 90/36 96 11/02/24 22:00 63 15 95/46 95 11/02/24 20:15 73 12 96/38 96 11/02/24 19:27 97.8 F 69 18 86/37 100 Intake and Output 11/02/24 11/03/24 11/03/24 22:59 06:59 14:59 Intake Total 310 Balance 310 Intake: Blood Product 310 Rc Irr As1 Unit 310 [id number] Other: Voiding Method Toilet Toilet # Voids 1 Weight 66.224 kg 66.224 kg Results CBC & Chem 7: 11/03/24 07:21 11/03/24 07:21 Labs: Abnormal Lab Results - Last 24 Hours (Table) 11/02/24 11/02/24 11/02/24 Range/Units 19:43 19:43 19:43 RBC (4.10-5.20) 10*6/uL Hgb (12.0-15.0) g/dL Hct (37.2-46.3) % MCHC (32.0-37.0) g/dL APTT 21.1 L (22.0-30.0) sec Chloride 108 H (98-107) mmol/L BUN 45 H (7-17) mg/dL Creatinine 1.31 H (0.52-1.04) mg/dL Glucose 100 H (74-99) mg/dL Plasma Lactic Acid Rick 2.4 H* (0.7-2.0) mmol/L Calcium (8.4-10.2) mg/dL Phosphorus 4.8 H (2.5-4.5) mg/dL Troponin I (0.000-0.034) ng/mL Total Protein 4.9 L (6.3-8.2) g/dL Albumin 3.0 L (3.5-5.0) g/dL Urine Nitrite (Negative) Ur Leukocyte Esterase (Negative) Urine WBC (0-5) /hpf Urine Bacteria (None) /hpf Hyaline Casts (0-2) /lpf Urine Mucus (None) /hpf Stool Occult Blood (Negative) Crossmatch 11/02/24 11/02/24 11/02/24 Range/Units 19:43 21:31 22:00 RBC 1.90 L (4.10-5.20) 10*6/uL Hgb 6.0 L* (12.0-15.0) g/dL Hct 18.4 L* (37.2-46.3) % MCHC (32.0-37.0) g/dL APTT (22.0-30.0) sec Chloride (98-107) mmol/L BUN (7-17) mg/dL Creatinine (0.52-1.04) mg/dL Glucose (74-99) mg/dL Plasma Lactic Acid Rick (0.7-2.0) mmol/L Calcium (8.4-10.2) mg/dL Phosphorus (2.5-4.5) mg/dL Troponin I 0.077 H* (0.000-0.034) ng/mL Total Protein (6.3-8.2) g/dL Albumin (3.5-5.0) g/dL Urine Nitrite (Negative) Ur Leukocyte Esterase (Negative) Urine WBC (0-5) /hpf Urine Bacteria (None) /hpf Hyaline Casts (0-2) /lpf Urine Mucus (None) /hpf Stool Occult Blood (Negative) Crossmatch See Detail 11/02/24 11/02/24 11/02/24 Range/Units 23:10 23:24 23:45 RBC (4.10-5.20) 10*6/uL Hgb (12.0-15.0) g/dL Hct (37.2-46.3) % MCHC (32.0-37.0) g/dL APTT (22.0-30.0) sec Chloride (98-107) mmol/L BUN (7-17) mg/dL Creatinine (0.52-1.04) mg/dL Glucose (74-99) mg/dL Plasma Lactic Acid Rick (0.7-2.0) mmol/L Calcium (8.4-10.2) mg/dL Phosphorus (2.5-4.5) mg/dL Troponin I 0.071 H* (0.000-0.034) ng/mL Total Protein (6.3-8.2) g/dL Albumin (3.5-5.0) g/dL Urine Nitrite Positive H (Negative) Ur Leukocyte Esterase Large H (Negative) Urine WBC 12 H (0-5) /hpf Urine Bacteria Many H (None) /hpf Hyaline Casts 8 H (0-2) /lpf Urine Mucus Rare H (None) /hpf Stool Occult Blood Positive H (Negative) Crossmatch 11/03/24 11/03/24 11/03/24 Range/Units 07:21 07:21 07:21 RBC 2.41 L (4.10-5.20) 10*6/uL Hgb 7.3 L (12.0-15.0) g/dL Hct 22.9 L (37.2-46.3) % MCHC 31.9 L (32.0-37.0) g/dL APTT (22.0-30.0) sec Chloride 115 H (98-107) mmol/L BUN 41 H (7-17) mg/dL Creatinine (0.52-1.04) mg/dL Glucose (74-99) mg/dL Plasma Lactic Acid Rick (0.7-2.0) mmol/L Calcium 8.1 L (8.4-10.2) mg/dL Phosphorus (2.5-4.5) mg/dL Troponin I 0.059 H* (0.000-0.034) ng/mL Total Protein 4.4 L (6.3-8.2) g/dL Albumin 2.6 L (3.5-5.0) g/dL Urine Nitrite (Negative) Ur Leukocyte Esterase (Negative) Urine WBC (0-5) /hpf Urine Bacteria (None) /hpf Hyaline Casts (0-2) /lpf Urine Mucus (None) /hpf Stool Occult Blood (Negative) Crossmatch Thrombosis Risk Factor Assmnt - Choose All That Apply Any of the Below Risk Factors Present?: Yes Each Factor Represents 1 point: Obesity (BMI >25) Other Risk Factors: Yes Each Risk Factor Represents 3 Points: Age 75 years or older Thrombosis Risk Factor Assessment Total Risk Factor Score: 4 Thrombosis Risk Factor Assessment Level: Moderate Risk
[2024-11-03 14:53] LABS: C Reactive Protein 1.4 mg/dL (<1.0)
[2024-11-04 01:12] LABS: % Iron Saturation 24.55 (12.00-45.00); Ferritin 21.1 ng/mL (10.0-291.0); Iron 54 UG/DL (50-170); Total Iron Binding Capacity 220 UG/DL (228-460)
[2024-11-04 01:16] LABS: Vitamin B12 <150.0 pg/mL (200.0-944.0)
[2024-11-04 07:29] LABS: Basophils # (A) 0.04 10*3/uL (0.00-0.10); Basophils % (A) 0.4 %; Eosinophils # (A) 0.14 10*3/uL (0.04-0.35); Eosinophils % (A) 1.6 %; HCT 24.1 % (37.2-46.3); HGB 7.6 g/dL (12.0-15.0); Lymphocytes # (A) 2.05 10*3/uL (0.90-5.00); Lymphocytes % (A) 22.7 %; MCH 30.5 pg (27.0-32.0); MCHC 31.5 g/dL (32.0-37.0); MCV 96.8 fL (80.0-97.0); Mean Platelet Volume 11.9 fL (9.5-12.2); Monocytes # (A) 0.64 10*3/uL (0.20-1.00); Monocytes % (A) 7.1 %; Neutrophils # (A) 6.13 10*3/uL (1.80-7.70); Neutrophils % (A) 67.9 %; Platelet Count 164 10*3/uL (140-440); RBC 2.49 10*6/uL (4.10-5.20); RDW 17.9 % (11.5-14.5); WBC 9.03 10*3/uL (4.50-10.00)
[2024-11-04 07:48] LABS: ALT 14 U/L (4-34); AST 24 U/L (14-36); African American GFR (CKD) 89 (>60 ml/min/1.73 sqM); Albumin 2.8 g/dL (3.5-5.0); Alkaline Phosphatase 44 U/L (38-126); Anion Gap 7 mmol/L; Blood Urea Nitrogen 28 mg/dL (7-17); Calcium 8.7 mg/dL (8.4-10.2); Carbon Dioxide 18 mmol/L (22-30); Chloride 117 mmol/L (98-107); Glucose 96 mg/dL (74-99); Non-African American GFR(CKD) 77 (>60 ml/min/1.73 sqM); Potassium 3.9 mmol/L (3.5-5.1); Sodium 142 mmol/L (137-145); Total Bilirubin 0.6 mg/dL (0.2-1.3); Total Protein 4.8 g/dL (6.3-8.2)
--- NOTE | 2024-11-04 08:44 | P.PN ---
Subjective Progress Note Date: 11/04/24 This is Teto Moss NP, I'm dictating on behalf of Dr. Eddy's H&P and A&P. Patient was interviewed and examined. Patient is a pleasant 79-year-old female who presented to the hospital with generalized weakness, cardiology was consulted for elevated troponins. Patient's hemoglobin was significantly low around 6. She has a possible GI bleed. Today patient reports that she is feeling okay. She is denying any chest pain or shortness of breath. No arrhythmias noted. GENERAL: Well-appearing, well-nourished and in no acute distress. NECK: Supple without JVD or thyromegaly. LUNGS: Breath sounds clear to auscultation bilaterally. Respiration equal and unlabored. No wheezes, rales or rhonchi. HEART: Regular rate and rhythm without murmurs, rubs or gallops. S1 and S2 heard. EXTREMITIES: Normal range of motion, no edema. No clubbing or cyanosis. Peripheral pulses intact and strong. VITALS: Temp 98.5, pulse 85, respirations 16, blood pressure 120/68, O2 saturation 97% on room air TELEMETRY: Sinus mechanism LABS: White count 9.0, hemoglobin 7.6, platelets 164, sodium 142, potassium 3.9, chloride 117, BUN 28, creatinine 0.74, calcium 8.7 IMPRESSION: 1. Acute blood loss anemia 2. Acute GI bleed 3. Severe aortic stenosis, declining intervention 4. Coronary artery disease 5. Hypertension 6. Hyperlipidemia PLAN: Continue to hold oral antihypertensives, patient's blood pressure is within normal limits today. Continue to treat anemia per primary team. 2D echo pending. Continue to hold aspirin and Plavix. Resume Plavix once GI bleed has stabilized and to discontinue aspirin. Further recommendations based on patient's clinical course. Objective - Vital Signs Vital signs: Vital Signs Temp 98.5 F 11/04/24 04:00 Pulse 85 11/04/24 04:00 Resp 16 11/04/24 04:00 BP 120/68 11/04/24 04:00 Pulse Ox 97 11/04/24 04:00 FiO2 Intake & Output 11/03/24 11/04/24 11/04/24 18:59 06:59 18:59 Intake Total 360 600 0 Balance 360 600 0 Weight 66.9 kg Intake: Intake, IV Titration 600 Amount Dextrose 5%-0.9% NaCl 1, 600 000 ml @ 50 mls/hr IV . Q20H [facility] Rx#:[id number] Oral 360 0 Other: Voiding Method Toilet # Voids 3 3 1 - Labs CBC & Chem 7: 11/04/24 06:19 11/04/24 06:19 Labs: Abnormal Lab Results - Last 24 Hours (Table) 11/03/24 11/03/24 11/03/24 Range/Units 07:21 07:21 14:01 RBC (4.10-5.20) 10*6/uL Hgb (12.0-15.0) g/dL Hct (37.2-46.3) % MCHC (32.0-37.0) g/dL Chloride 115 H (98-107) mmol/L Carbon Dioxide (22-30) mmol/L BUN 41 H (7-17) mg/dL Calcium 8.1 L (8.4-10.2) mg/dL TIBC 220 L (228-460) UG/DL Transferrin 157.0 L (204.0-354.0) mg/dL Troponin I 0.059 H* (0.000-0.034) ng/mL C-Reactive Protein 1.4 H (<1.0) mg/dL Total Protein 4.4 L (6.3-8.2) g/dL Albumin 2.6 L (3.5-5.0) g/dL Vitamin B12 <150.0 L (200.0-944.0) pg/mL 11/04/24 11/04/24 Range/Units 06:19 06:19 RBC 2.49 L (4.10-5.20) 10*6/uL Hgb 7.6 L (12.0-15.0) g/dL Hct 24.1 L (37.2-46.3) % MCHC 31.5 L (32.0-37.0) g/dL Chloride 117 H (98-107) mmol/L Carbon Dioxide 18 L (22-30) mmol/L BUN 28 H (7-17) mg/dL Calcium (8.4-10.2) mg/dL TIBC (228-460) UG/DL Transferrin (204.0-354.0) mg/dL Troponin I (0.000-0.034) ng/mL C-Reactive Protein (<1.0) mg/dL Total Protein 4.8 L (6.3-8.2) g/dL Albumin 2.8 L (3.5-5.0) g/dL Vitamin B12 (200.0-944.0) pg/mL
[2024-11-04] MEDS: ATORVASTATIN 40 MG TAB PO SCH (09:19)
--- NOTE | 2024-11-04 10:31 | P.PN ---
Subjective Progress Note Date: 11/04/24 Patient nayely stable. She shows no sign of GI bleed. Abdomen soft. Patient scheduled for upper and lower endoscopy in the a.m. She will bowel prep today. Objective - Vital Signs Vital signs: Vital Signs Temp 98.5 F 11/04/24 04:00 Pulse 85 11/04/24 04:00 Resp 16 11/04/24 04:00 BP 120/68 11/04/24 04:00 Pulse Ox 97 11/04/24 04:00 FiO2 Intake & Output 11/03/24 11/04/24 11/04/24 18:59 06:59 18:59 Intake Total 360 600 0 Balance 360 600 0 Weight 66.9 kg Intake: Intake, IV Titration 600 Amount Dextrose 5%-0.9% NaCl 1, 600 000 ml @ 50 mls/hr IV . Q20H [facility] Rx#:[id number] Oral 360 0 Other: Voiding Method Toilet # Voids 3 3 1 - Labs CBC & Chem 7: 11/04/24 06:19 11/04/24 06:19 Labs: Abnormal Lab Results - Last 24 Hours (Table) 11/03/24 11/04/24 11/04/24 Range/Units 14:01 06:19 06:19 RBC 2.49 L (4.10-5.20) 10*6/uL Hgb 7.6 L (12.0-15.0) g/dL Hct 24.1 L (37.2-46.3) % MCHC 31.5 L (32.0-37.0) g/dL Chloride 117 H (98-107) mmol/L Carbon Dioxide 18 L (22-30) mmol/L BUN 28 H (7-17) mg/dL TIBC 220 L (228-460) UG/DL Transferrin 157.0 L (204.0-354.0) mg/dL C-Reactive Protein 1.4 H (<1.0) mg/dL Total Protein 4.8 L (6.3-8.2) g/dL Albumin 2.8 L (3.5-5.0) g/dL Vitamin B12 <150.0 L (200.0-944.0) pg/mL
[2024-11-04] MEDS: PEG 3350 (236 GM/BTL) + LYTES 4,000 ML BOTTLE PO ONE (14:28)
--- NOTE | 2024-11-04 15:38 | P.PN ---
Subjective Progress Note Date: 11/04/24 patient is a 79-year-old lady with past medical history significant for hyperlipidemia, hypertension presents the ER because of generalized weakness. Patient stated for the last couple of days she has not been feeling her usual self. Patient has been having generalized body aches and feeling lethargic and weakness. Patient stated she was getting short of breath on exertion. Patient also complaining of back pain. Denies any chest pain.. Patient denies any palpitation. There is no complaint of orthopnea or PND. Denies any nausea, vomiting abdominal pain. Patient denies any blood in the stools. There is no complaint of loss of appetite or recent weight loss . patient denies any complaint of dizziness. There is no complaint of headache. Because of the symptoms, patient came to the ER Initial lab work done in the ER showed WBC 7.75, hemoglobin 6, platelet count 155, sodium 139, potassium 4.1, BUN 45, creatinine 1.31, lactate 2.4 phosphorus 4.8 AST 22, ALT 18, troponin 0.077 UA positive for nitrite, large amount of leukocyte Estrace, urine WBC 12 EKG done in the ER showed heart rate of 68 , no ST segment elevation or depression seen, no T-wave inversions seen. Chest x-ray done in the ER showed no acute cardiopulmonary process CT abdomen and pelvis done showed no acute abdominal process. Patient admitted to internal medicine service 11/04. Patient seen and examined.Labs reviewed WBC 9.03, hemoglobin 7.6, platelet count 164, sodium 142, potassium 3.9, BUN 20, creatinine 0.74. Complaining of nausea and vomiting REVIEW OF SYSTEMS: CONSTITUTIONAL: No fever, no malaise,. CARDIOVASCULAR: No chest pain, no palpitations, no syncope. PULMONARY: No shortness of breath, no cough, GASTROINTESTINAL: No diarrhea, no abdominal pain. NEUROLOGICAL: No headaches, no weakness, PHYSICAL EXAMINATION: GENERAL: The patient is alert and oriented x3, not in any acute distress. Well developed, well nourished. HEENT: Pupils are round and equally reacting to light. EOMI. No scleral icterus. No conjunctival pallor. Normocephalic, atraumatic. No pharyngeal erythema. No thyromegaly. CARDIOVASCULAR: S1 and S2 present. No murmurs, rubs, or gallops. PULMONARY: Chest is clear to auscultation, no wheezing or crackles. ABDOMEN: Soft, nontender, nondistended, normoactive bowel sounds. No palpable organomegaly. MUSCULOSKELETAL: No joint swelling or deformity. EXTREMITIES: No cyanosis, clubbing, or pedal edema. NEUROLOGICAL: Gross neurological examination did not reveal any focal deficits. SKIN: No rashes. Assessment and plan Anemia Elevated troponin Acute kidney injury Blood in stools Lactic acidosis UTI Hypertension Hyperlipidemia Monitor vital signs Monitor CBC Monitor CMP Continue telemetry monitoring Encourage use of incentive spirometer Continue IV Rocephin Continue IV Protonix Hold blood pressure medications for now Cardiology evaluated, agreed with holding blood pressure medications and aspirin and Plavix, they recommended to resume Plavix and DC aspirin at DC once okay with surgery, recommendations noted from 11/04 Surgery following, planning upper and lower endoscopy tomorrow, bowel prep in progress, notes reviewed from 11/04 Labs and medication were reviewed.. Continue same treatment. Continue with symptomatic treatment. Resume home medication. Monitor labs and vitals. DVT and GI prophylaxis. Further recommendations as per clinical course of the patient Dictation was produced using [employer] dictation software. please excuse any grammatical, word or spelling errors. Objective - Vital Signs Vital signs: Vital Signs Temp 98.3 F 11/04/24 09:12 Pulse 93 11/04/24 12:21 Resp 18 11/04/24 12:21 BP 110/63 11/04/24 12:21 Pulse Ox 98 11/04/24 12:21 FiO2 Intake & Output 11/03/24 11/04/24 11/04/24 18:59 06:59 18:59 Intake Total 360 600 0 Balance 360 600 0 Weight 66.9 kg Intake: Intake, IV Titration 600 Amount Dextrose 5%-0.9% NaCl 1, 600 000 ml @ 50 mls/hr IV . Q20H LISA Rx#:[id number] Oral 360 0 Other: Voiding Method Toilet # Voids 3 3 1 - Labs CBC & Chem 7: 11/04/24 06:19 11/04/24 06:19 Labs: Abnormal Lab Results - Last 24 Hours (Table) 11/03/24 11/04/24 11/04/24 Range/Units 14:01 06:19 06:19 RBC 2.49 L (4.10-5.20) 10*6/uL Hgb 7.6 L (12.0-15.0) g/dL Hct 24.1 L (37.2-46.3) % MCHC 31.5 L (32.0-37.0) g/dL Chloride 117 H (98-107) mmol/L Carbon Dioxide 18 L (22-30) mmol/L BUN 28 H (7-17) mg/dL TIBC 220 L (228-460) UG/DL Transferrin 157.0 L (204.0-354.0) mg/dL Total Protein 4.8 L (6.3-8.2) g/dL Albumin 2.8 L (3.5-5.0) g/dL Vitamin B12 <150.0 L (200.0-944.0) pg/mL
--- NOTE | 2024-11-04 15:39 | CA ---
Transthoracic Echo Report Name: Cristina Cowart Age: 79 Gender: F : 1945 Exam Date: 11/04/2024 11:15 Exam Location: [facility] Ht (in): 60 Wt (lb): 146 Ordering Physician: Sherri Vázquez Attending/Referring Phys: [id number], Kathie Meal Cook Gillian Berman, MYRNA Procedure CPT: Indications: elevated trops, GI bleed, severe Cardiac Hx: Technical Quality: Fair Contrast 1: Total Dose (mL): Contrast 2: Total Dose (mL): MEASUREMENTS (Male / Female) Normal Values 2D ECHO LV Diastolic Diameter PLAX 3.8 cm 4.2 - 5.9 / 3.9 - 5.3 cm LV Systolic Diameter PLAX 2.4 cm IVS Diastolic Thickness 1.3 cm 0.6 - 1.0 / 0.6 - 0.9 cm LVPW Diastolic Thickness 1.3 cm 0.6 - 1.0 / 0.6 - 0.9 cm LV Relative Wall Thickness 0.7 RV Internal Dim ED PLAX 3.4 cm LVOT Diameter 2.4 cm LA Systolic Diameter LX 4.4 cm 3.0 - 4.0 / 2.7 - 3.8 cm LV Diastolic Volume MOD BP 74.1 cm??? 67 - 155 / 56 - 104 cm??? LV Systolic Volume MOD BP 28.2 cm??? 22 - 58 / 19 - 49 cm??? LV Ejection Fraction MOD BP 62.0 % >= 55 % LV Cardiac Index MOD BP 2383.7 cm???/min???m??? LV Diastolic Volume MOD 4C 74.3 cm??? LV Systolic Volume MOD 4C 23.3 cm??? LV Ejection Fraction MOD 4C 68.6 % LV Cardiac Index MOD 4C 2644.0 cm???/min???m??? LV Diastolic Length 4C 7.6 cm LV Systolic Length 4C 6.9 cm LV Diastolic Volume MOD 2C 75.5 cm??? LV Systolic Volume MOD 2C 32.1 cm??? LV Ejection Fraction MOD 2C 57.5 % LV Cardiac Index MOD 2C 2250.7 cm???/min???m??? LV Diastolic Length 2C 7.6 cm LV Systolic Length 2C 7.4 cm LA Volume 113.6 cm??? 18 - 58 / 22 - 52 cm??? LA Volume Index 66.9 cm???/m??? 16 - 28 cm???/m??? M-MODE Aortic Root Diameter MM 2.8 cm AV Cusp Separation MM 1.4 cm DOPPLER AV Peak Velocity 551.2 cm/s AV Peak Gradient 121.5 mmHg AV Mean Velocity 408.1 cm/s AV Mean Gradient 72.4 mmHg AV Velocity Time Integral 121.2 cm LVOT Peak Velocity 110.2 cm/s LVOT Peak Gradient 4.9 mmHg LVOT Velocity Time Integral 24.2 cm LVOT Stroke Volume 107.5 cm??? LVOT Stroke Volume Index 65.8 ml/m??? LVOT Cardiac Index 5575.1 cm???/min???m??? AV Area Cont Eq vti 0.9 cm??? AV Area Cont Eq pk 0.9 cm??? MV Peak Velocity 213.1 cm/s MV Peak Gradient 18.2 mmHg MV Mean Velocity 107.2 cm/s MV Mean Gradient 5.8 mmHg MV Velocity Time Integral 39.6 cm MV Area PHT 3.8 cm??? Mitral E Point Velocity 107.9 cm/s Mitral A Point Velocity 179.9 cm/s Mitral E to A Ratio 0.6 MV Deceleration Time 201.6 ms TR Peak Velocity 344.7 cm/s TR Peak Gradient 47.5 mmHg Right Ventricular Systolic Press 50.9 mmHg FINDINGS Left Ventricle Left ventricular ejection fraction is estimated at 60-65 %. Small left ventricular cavity. Mildly increased septal wall thickness. Moderately increased posterior wall thickness. No obvious regional wall motion abnormalities. Right Ventricle Mild right ventricular dilatation. Moderate pulmonary hypertension. Right ventricular systolic pressure estimated at 51 mm hg. Right Atrium Normal right atrial size. No right atrial thrombus or mass seen. Left Atrium Moderately increased left atrial diameter. Severely increased left atrial volume. Mildly increased left atrial area. No left atrial thrombus or mass present. Mitral Valve Moderate thickening/calcification of the anterior mitral valve leaflet. Moderate mitral annular calcification. Moderate mitral stenosis with mean gradient 6 mmHg Aortic Valve Severe aortic valve sclerosis. Severe aortic stenosis with a peak velocity of 5.5 m/s, peak gradient 122 mmHg, mean gradient 72 mmHg, and estimated aortic valve area of 0.9 cm???. Tricuspid Valve Structurally normal tricuspid valve. Mild tricuspid regurgitation. Pulmonic Valve Structurally normal pulmonic valve. Mild pulmonic regurgitation. Pericardium No pericardial effusion. Aorta Normal size aortic root and proximal ascending aorta. CONCLUSIONS Diagnosis severe arctic stenosis abnormal cardiac enzymes Hyperdynamic LV systolic function, LVH Mild RV enlargement Heavily calcific aortic valve with likely severe attic stenosis Previewed by: Dr. Jimmy Eddy MD (Electronically Signed) Final Date: 04 Nov 2024 15:38
[2024-11-05 05:42] LABS: Glucose,Whole Blood 113 mg/dL (70-110)
[2024-11-05 08:10] LABS: MCH 30.9 pg (27.0-32.0); MCHC 32.2 g/dL (32.0-37.0); MCV 96.1 fL (80.0-97.0); Mean Platelet Volume 11.5 fL (9.5-12.2); Platelet Count 137 10*3/uL (140-440); RBC 1.81 10*6/uL (4.10-5.20); RDW 18.4 % (11.5-14.5)
[2024-11-05 08:19] LABS: African American GFR (CKD) >90 (>60 ml/min/1.73 sqM); Anion Gap 2 mmol/L; Blood Urea Nitrogen 28 mg/dL (7-17); Carbon Dioxide 24 mmol/L (22-30); Chloride 118 mmol/L (98-107); Glucose 106 mg/dL (74-99); Non-African American GFR(CKD) 82 (>60 ml/min/1.73 sqM); Potassium 3.6 mmol/L (3.5-5.1); Sodium 144 mmol/L (137-145)
[2024-11-05 10:25] LABS: HCT 17.4 % (37.2-46.3); HGB 5.6 g/dL (12.0-15.0)
--- NOTE | 2024-11-05 11:32 | P.PN ---
Progress Note - Text Patient not seen by cardiology service this morning. 2D echo reviewed. No further inpatient recommendations from a cardiology perspective. We will sign off. Please reconsult if needed.
[2024-11-05 12:03] LABS: Glucose,Whole Blood 114 mg/dL (70-110)
--- NOTE | 2024-11-05 12:38 | P.PN ---
Subjective Progress Note Date: 11/05/24 SURGICAL PROGRESS NOTE CHIEF COMPLAINT: Anemia HISTORY OF PRESENT ILLNESS: No active signs of GI bleed. Hemoglobin did drop from 7.6-5.6. Patient initially scheduled for EGD and colonoscopy today. She did not complete the bowel prep. She drank only 1 glass of the bowel prep. She did report nausea after the the 1 glass of bowel prep. She denies abdominal pain. Denies any nausea or vomiting. PHYSICAL EXAM: VITAL SIGNS: Reviewed. GENERAL: Well-developed in no acute distress. HEENT: No sclera icterus. Extraocular movements grossly intact. Moist buccal mucosa. Head is atraumatic, normocephalic. ABDOMEN: Soft. Nondistended. Nontender. NEUROLOGIC: Alert and oriented. Cranial nerves II through XII grossly intact. ASSESSMENT: 1. Anemia requiring blood transfusion. No evidence of active bleeding. Stool for occult blood was positive PLAN: - Patient did not complete bowel prep for colonoscopy. Due to anemia would at least recommend an EGD. Patient will be scheduled for EGD tomorrow with Dr. Costa. Darlin for regular diet today and n.p.o. after midnight. Physician Assembler [employer] note has been reviewed by physician. Signing provider agrees with the documented findings, assessment, and plan of care. Objective - Vital Signs Vital signs: Vital Signs Temp 98.4 F 11/05/24 08:54 Pulse 96 11/05/24 08:55 Resp 18 11/05/24 08:55 BP 107/68 11/05/24 08:54 Pulse Ox 97 11/05/24 08:54 FiO2 Intake & Output 11/04/24 11/05/24 11/05/24 18:59 06:59 18:59 Intake Total 0 Balance 0 Weight 69.5 kg Intake: Oral 0 Other: Voiding Method Toilet Toilet # Voids 3 1 - Labs CBC & Chem 7: 11/05/24 07:55 11/05/24 07:55 Labs: Abnormal Lab Results - Last 24 Hours (Table) 11/02/24 11/05/24 11/05/24 Range/Units 22:00 05:38 07:55 RBC 1.81 L (4.10-5.20) 10*6/uL Hgb 5.6 L* D (12.0-15.0) g/dL Hct 17.4 L* (37.2-46.3) % Plt Count 137 L (140-440) 10*3/uL Chloride (98-107) mmol/L BUN (7-17) mg/dL Glucose (74-99) mg/dL POC Glucose (mg/dL) 113 H (70-110) mg/dL Calcium (8.4-10.2) mg/dL Crossmatch See Detail 11/05/24 Range/Units 07:55 RBC (4.10-5.20) 10*6/uL Hgb (12.0-15.0) g/dL Hct (37.2-46.3) % Plt Count (140-440) 10*3/uL Chloride 118 H (98-107) mmol/L BUN 28 H (7-17) mg/dL Glucose 106 H (74-99) mg/dL POC Glucose (mg/dL) (70-110) mg/dL Calcium 8.0 L (8.4-10.2) mg/dL Crossmatch
[2024-11-05] MEDS: FUROSEMIDE 10 MG/ML 2 ML VIAL IV ONE (15:13)
--- NOTE | 2024-11-05 16:49 | P.PN ---
Subjective Progress Note Date: 11/05/24 Patient initially scheduled for both colonoscopy and EGD .unable to complete her prep for colonoscopy; attempted last night but threw up. Denies abdominal pain. denies any bleeding at home, denies black stools or hemoptysis. Hemoglobin dropped to 5.6, 1 unit of packed RBCs ordered. Stool for occult blood positive. Echo reported severe aortic stenosis, hyperdynamic LV systolic function, LVH, moderate pulmonary hypertension Objective - Vital Signs Vital signs: Vital Signs Temp 98.3 F 11/05/24 15:04 Pulse 89 11/05/24 15:04 Resp 18 11/05/24 15:04 BP 119/63 11/05/24 15:04 Pulse Ox 100 11/05/24 15:04 FiO2 Intake & Output 11/04/24 11/05/24 11/05/24 18:59 06:59 18:59 Intake Total 0 310 Balance 0 310 Weight 69.5 kg Intake: Oral 0 Blood Product 310 Rc As-1 Unit 310 [id number] Other: Voiding Method Toilet Toilet # Voids 3 1 1 - Exam GENERAL: alert and oriented x3, no acute distress HEENT: Normocephalic, atraumatic, pupils are round and equal, No scleral icterus. No conjunctival pallor. CARDIOVASCULAR: S1 and S2 present. No murmurs, rubs, or gallops. PULMONARY: Unlabored, equal air entry, clear to auscultation ABDOMEN: Soft, nontender, nondistended, normoactive bowel sounds. No palpable organomegaly. EXTREMITIES: No cyanosis, clubbing, or pedal edema. NEUROLOGICAL: Gross neurological examination did not reveal any focal deficits. SKIN: Warm and dry, no rashes. - Labs CBC & Chem 7: 11/07/24 05:35 11/07/24 05:35 Labs: Abnormal Lab Results - Last 24 Hours (Table) 11/02/24 11/05/24 11/05/24 Range/Units 22:00 05:38 07:55 RBC 1.81 L (4.10-5.20) 10*6/uL Hgb 5.6 L* D (12.0-15.0) g/dL Hct 17.4 L* (37.2-46.3) % Plt Count 137 L (140-440) 10*3/uL Chloride (98-107) mmol/L BUN (7-17) mg/dL Glucose (74-99) mg/dL POC Glucose (mg/dL) 113 H (70-110) mg/dL Calcium (8.4-10.2) mg/dL Crossmatch See Detail 11/05/24 11/05/24 Range/Units 07:55 11:47 RBC (4.10-5.20) 10*6/uL Hgb (12.0-15.0) g/dL Hct (37.2-46.3) % Plt Count (140-440) 10*3/uL Chloride 118 H (98-107) mmol/L BUN 28 H (7-17) mg/dL Glucose 106 H (74-99) mg/dL POC Glucose (mg/dL) 114 H (70-110) mg/dL Calcium 8.0 L (8.4-10.2) mg/dL Crossmatch Assessment and Plan Assessment: Acute blood loss anemia, etiology unclear, 1 unit of packed RBCs pending. Elevated troponins, flat Acute kidney injury Lactic acidosis, resolved UTI, UA reporting positive nitrates, urine culture pending hypertension Hyperlipidemia Plan: Continue on current medication regimen ,monitoring and symptomatic treatment. PPI in place for GI prophylaxis. 1 unit packed RBCs followed by Lasix 20 mg IV push x 1 ordered. Colonoscopy canceled, scheduled for EGD tomorrow. Maintain on ceftriaxone, UA positive for nitrites, complaints of frequency, urine culture ordered. The impression and plan of care has been dictated as directed. : I performed a history and examination of this patient, discussed the same with the dictator. I agree with the dictator's note ,documented as a scribe. Any additional findings or plans will be noted.
[2024-11-06 07:05] LABS: MCH 29.9 pg (27.0-32.0); MCHC 31.5 g/dL (32.0-37.0); MCV 94.8 fL (80.0-97.0); Mean Platelet Volume 11.6 fL (9.5-12.2); Platelet Count 128 10*3/uL (140-440); RBC 2.11 10*6/uL (4.10-5.20); RDW 17.5 % (11.5-14.5); WBC 7.28 10*3/uL (4.50-10.00)
[2024-11-06 07:31] LABS: HGB 6.3 g/dL (12.0-15.0)
[2024-11-06 07:41] LABS: African American GFR (CKD) 77 (>60 ml/min/1.73 sqM); Anion Gap 5 mmol/L; Blood Urea Nitrogen 28 mg/dL (7-17); Calcium 7.9 mg/dL (8.4-10.2); Carbon Dioxide 26 mmol/L (22-30); Chloride 115 mmol/L (98-107); Glucose 98 mg/dL (74-99); Non-African American GFR(CKD) 67 (>60 ml/min/1.73 sqM); Potassium 3.4 mmol/L (3.5-5.1); Sodium 146 mmol/L (137-145)
[2024-11-06] MEDS: ONDANSETRON 4 MG/2 ML VIAL IVP PRN (08:01)
[2024-11-06] MEDS: POTASSIUM CHLORIDE ER 20 MEQ TAB.ER PO STA (10:22)
--- NOTE | 2024-11-06 11:36 | P.PN ---
Subjective Progress Note Date: 11/06/24 Patient initially scheduled for both colonoscopy and EGD .unable to complete her prep for colonoscopy; attempted last night but threw up. Denies abdominal pain. denies any bleeding at home, denies black stools or hemoptysis. Hemoglobin dropped to 5.6, 1 unit of packed RBCs ordered. Stool for occult blood positive. Echo reported severe aortic stenosis, hyperdynamic LV systolic function, LVH, moderate pulmonary hypertension 11/06/2024 patient did have a black tarry stool yesterday afternoon, received 1 unit packed RBCs yesterday. Denies abdominal pain. Denies chest pain, palpitations or shortness of breath. Maintaining O2 sats in the high 90s on room air. this morning hemoglobin 6.3. Another unit of packed RBCs ordered. Potassium 3.4 and magnesium 1.7, supplementation ordered. N.p.o. for EGD. Creatinine stable. Tmax 99.4, normal WBC. Objective - Vital Signs Vital signs: Vital Signs Temp 98.0 F 11/06/24 10:45 Pulse 75 11/06/24 10:45 Resp 18 11/06/24 10:45 BP 114/67 11/06/24 10:45 Pulse Ox 99 11/06/24 10:45 FiO2 Intake & Output 11/05/24 11/06/24 11/06/24 18:59 06:59 18:59 Intake Total 310 0 Output Total 600 300 1 Balance -290 -300 -1 Weight 69.6 kg Intake: Blood Product 310 0 Unit 0 Rc As-1 Unit 310 [id number] Output: Urine 600 300 1 Other: Voiding Method Toilet Toilet Toilet # Voids 1 - Exam GENERAL: alert and oriented x3, no acute distress HEENT: Normocephalic, atraumatic, pupils are round and equal, No scleral icterus. No conjunctival pallor. CARDIOVASCULAR: S1 and S2 present. No murmurs, rubs, or gallops. PULMONARY: Unlabored, equal air entry, clear to auscultation. ABDOMEN: Soft, nontender,nondistended, normoactive bowel sounds. No palpable organomegaly. EXTREMITIES: No cyanosis, clubbing, or pedal edema. NEUROLOGICAL: Gross neurological examination did not reveal any focal deficits. SKIN: Warm and dry, no rashes. - Labs CBC & Chem 7: 11/07/24 05:35 11/07/24 05:35 Labs: Abnormal Lab Results - Last 24 Hours (Table) 11/02/24 11/05/24 11/06/24 Range/Units 22:00 11:47 06:23 RBC 2.11 L (4.10-5.20) 10*6/uL Hgb 6.3 L* (12.0-15.0) g/dL Hct 20.0 L (37.2-46.3) % MCHC 31.5 L (32.0-37.0) g/dL Plt Count 128 L (140-440) 10*3/uL Sodium (137-145) mmol/L Potassium (3.5-5.1) mmol/L Chloride (98-107) mmol/L BUN (7-17) mg/dL POC Glucose (mg/dL) 114 H (70-110) mg/dL Calcium (8.4-10.2) mg/dL Crossmatch See Detail 11/06/24 11/06/24 Range/Units 06:23 08:15 RBC (4.10-5.20) 10*6/uL Hgb (12.0-15.0) g/dL Hct (37.2-46.3) % MCHC (32.0-37.0) g/dL Plt Count (140-440) 10*3/uL Sodium 146 H (137-145) mmol/L Potassium 3.4 L (3.5-5.1) mmol/L Chloride 115 H (98-107) mmol/L BUN 28 H (7-17) mg/dL POC Glucose (mg/dL) (70-110) mg/dL Calcium 7.9 L (8.4-10.2) mg/dL Crossmatch See Detail Assessment and Plan Assessment: Acute blood loss anemia, etiology unclear, s/p 3 units of PRBCs Elevated troponins, flat Acute kidney injury Lactic acidosis, resolved UTI, UA reporting positive nitrates, UA pending hypertension Hyperlipidemia Plan: Continue on current medication regimen ,monitoring and symptomatic treatment. Maintain her PPI. receiving a unit of packed RBCs. Magnesium and potassium supplements ordered.NPO, EGD pending. Maintain on ceftriaxone, urine culture pending. The impression and plan of care has been dictated as directed. : I performed a history and examination of this patient, discussed the same with the dictator. I agree with the dictator's note ,documented as a scribe. Any additional findings or plans will be noted.
--- NOTE | 2024-11-06 12:21 | P.PN ---
Subjective Progress Note Date: 11/06/24 SURGICAL PROGRESS NOTE CHIEF COMPLAINT: Anemia HISTORY OF PRESENT ILLNESS: Patient had black stools per nursing staff last night. Denies any abdominal pain. Hemoglobin went from 5.6-6.3 after 1 unit of blood. She is scheduled for another unit of blood today. Patient did not complete bowel prep for colonoscopy that was initially scheduled for yesterday. Potassium 3.4 PHYSICAL EXAM: VITAL SIGNS: Reviewed. GENERAL: Well-developed in no acute distress. ABDOMEN: Soft. Nondistended. Nontender. NEUROLOGIC: Alert and oriented. Cranial nerves II through XII grossly intact. ASSESSMENT: 1. Anemia with melanotic stools 2. Hypokalemia PLAN: -Patient scheduled for EGD today with Dr. Costa -Patient scheduled for 1 unit of blood for hemoglobin of 6.3 -Potassium being replaced Physician Student Records Specialist note has been reviewed by physician. Signing provider agrees with the documented findings, assessment, and plan of care. Objective - Vital Signs Vital signs: Vital Signs Temp 98.3 F 11/06/24 12:11 Pulse 79 11/06/24 12:11 Resp 18 11/06/24 12:11 BP 120/74 11/06/24 12:11 Pulse Ox 99 11/06/24 12:11 FiO2 Intake & Output 11/05/24 11/06/24 11/06/24 18:59 06:59 18:59 Intake Total 310 310 Output Total 600 300 1 Balance -290 -300 309 Weight 69.6 kg Intake: Blood Product 310 310 Rc As-1 Unit 310 [id number] Rc As-1 Unit 310 [id number] Output: Urine 600 300 1 Other: Voiding Method Toilet Toilet Toilet # Voids 1 - Labs CBC & Chem 7: 11/06/24 06:23 11/06/24 06:23 Labs: Abnormal Lab Results - Last 24 Hours (Table) 11/02/24 11/06/24 11/06/24 Range/Units 22:00 06:23 06:23 RBC 2.11 L (4.10-5.20) 10*6/uL Hgb 6.3 L* (12.0-15.0) g/dL Hct 20.0 L (37.2-46.3) % MCHC 31.5 L (32.0-37.0) g/dL Plt Count 128 L (140-440) 10*3/uL Sodium 146 H (137-145) mmol/L Potassium 3.4 L (3.5-5.1) mmol/L Chloride 115 H (98-107) mmol/L BUN 28 H (7-17) mg/dL Calcium 7.9 L (8.4-10.2) mg/dL Crossmatch See Detail 11/06/24 Range/Units 08:15 RBC (4.10-5.20) 10*6/uL Hgb (12.0-15.0) g/dL Hct (37.2-46.3) % MCHC (32.0-37.0) g/dL Plt Count (140-440) 10*3/uL Sodium (137-145) mmol/L Potassium (3.5-5.1) mmol/L Chloride (98-107) mmol/L BUN (7-17) mg/dL Calcium (8.4-10.2) mg/dL Crossmatch See Detail
[2024-11-06] MEDS ORDERED: PROPOFOL 10 MG/ML 20 ML VIAL IV ONE (12:33)
[2024-11-06] MEDS ORDERED: LIDOCAINE 1% INJ 10MG/ML (20 ML MDV) ONE (12:33)
[2024-11-06] MEDS: IV FLUID CONTINUATION 1,000 ML IV ONE ×2 (12:34→12:49)
--- NOTE | 2024-11-06 12:54 | P.OP ---
Date of Procedure: 11/06/24 Preoperative Diagnosis: Anemia Postoperative Diagnosis: No evidence of upper GI bleed Procedure(s) Performed: EGD Anesthesia: MAC Surgeon: Keven Costa Pathology: none sent Condition: stable Description of Procedure: The patient was placed on the endoscopy table in the lateral position. She received IV sedation. The Gastroflux oropharynx. The scope was advanced the stomach into the second portion of duodenum. There was no blood seen in the duodenum. Scope was brought the stomach. There is no evidence of gastritis. T here is no it is of any upper GI bleed. The GE junction was at 40 cm. The distal esophagus appeared normal proximal esophagus appeared normal. Scope withdrawn the patient. There was no evidence of upper GI bleed. Patient will be prepped for colonoscopy tomorrow.
[2024-11-06] MEDS: FUROSEMIDE 10 MG/ML 2 ML VIAL IV ONE (13:24)
[2024-11-06] MEDS ORDERED: ONDANSETRON 4 MG/2 ML VIAL IVP PRN (13:53)
[2024-11-06] MEDS ORDERED: PEG 3350 (236 GM/BTL) + LYTES 4,000 ML BOTTLE PO ONE (15:00)
[2024-11-06] MEDS: MAGNESIUM SULFATE-D5W PMX 1 GM in DEXTROSE/WATER 1 100ML.BAG IVPB ONE (15:08)
[2024-11-06] MEDS: PEG 3350 (420 GM/BTL) + LYTES 4,000 ML BOTTLE PO ONE ×2 (15:30→15:32)
[2024-11-06] MEDS: LACTULOSE 20 GM/30 ML CUP PO ONE (15:30)
[2024-11-06 15:52] LABS: Glucose,Whole Blood 117 mg/dL (70-110)
[2024-11-06 16:26] LABS: Basophils # (A) 0.04 10*3/uL (0.00-0.10); Basophils % (A) 0.5 %; Eosinophils # (A) 0.18 10*3/uL (0.04-0.35); HCT 26.8 % (37.2-46.3); Immature Platelet Fraction 5.4 % (1.1-6.1); Lymphocytes # (A) 2.07 10*3/uL (0.90-5.00); Lymphocytes % (A) 23.3 %; MCH 30.4 pg (27.0-32.0); MCHC 32.8 g/dL (32.0-37.0); MCV 92.7 fL (80.0-97.0); Mean Platelet Volume 11.9 fL (9.5-12.2); Monocytes # (A) 0.58 10*3/uL (0.20-1.00); Monocytes % (A) 6.5 %; Neutrophils # (A) 5.96 10*3/uL (1.80-7.70); Neutrophils % (A) 67.2 %; Platelet Count 129 10*3/uL (140-440); RBC 2.89 10*6/uL (4.10-5.20); RDW 16.9 % (11.5-14.5); WBC 8.87 10*3/uL (4.50-10.00)
[2024-11-06 16:41] LABS: HGB 8.8 g/dL (12.0-15.0)
[2024-11-06 16:51] LABS: African American GFR (CKD) 87 (>60 ml/min/1.73 sqM); Anion Gap 3 mmol/L; Blood Urea Nitrogen 28 mg/dL (7-17); Calcium 8.3 mg/dL (8.4-10.2); Carbon Dioxide 25 mmol/L (22-30); Chloride 114 mmol/L (98-107); Glucose 114 mg/dL (74-99); Non-African American GFR(CKD) 75 (>60 ml/min/1.73 sqM); Sodium 142 mmol/L (137-145)
[2024-11-07 06:09] LABS: MCH 30.2 pg (27.0-32.0); MCHC 32.4 g/dL (32.0-37.0); MCV 93.3 fL (80.0-97.0); Mean Platelet Volume 11.9 fL (9.5-12.2); RBC 2.25 10*6/uL (4.10-5.20); RDW 17.2 % (11.5-14.5); WBC 6.45 10*3/uL (4.50-10.00)
[2024-11-07 06:13] LABS: African American GFR (CKD) >90 (>60 ml/min/1.73 sqM); Anion Gap 3 mmol/L; Blood Urea Nitrogen 25 mg/dL (7-17); Carbon Dioxide 24 mmol/L (22-30); Chloride 114 mmol/L (98-107); Glucose 98 mg/dL (74-99); Non-African American GFR(CKD) 84 (>60 ml/min/1.73 sqM); Potassium 3.7 mmol/L (3.5-5.1); Sodium 141 mmol/L (137-145)
[2024-11-07 06:17] LABS: HGB 6.8 g/dL (12.0-15.0)
[2024-11-07 07:56] LABS: Platelet Count 82 10*3/uL (140-440)
--- NOTE | 2024-11-07 11:34 | P.PN ---
Subjective Progress Note Date: 11/07/24 SURGICAL PROGRESS NOTE CHIEF COMPLAINT: Anemia HISTORY OF PRESENT ILLNESS: Patient did not finish bowel prep. She fell asleep during the night and did not complete it. Patient was having black stools. Hemoglobin today is back down from 8.8-6.8. She is receiving another unit of blood. This would be the patient's fourth unit of blood during this admission. Also note that she did have a syncopal episode yesterday while she was on the toilet. They did "ATEAM" her. She was able to return to bed and was fine. Vital stable. Patient had EGD yesterday that showed no evidence of upper GI bleed. PHYSICAL EXAM: VITAL SIGNS: Reviewed. GENERAL: Well-developed in no acute distress. ABDOMEN: Soft. Nondistended. Nontender. NEUROLOGIC: Alert and oriented. Cranial nerves II through XII grossly intact. ASSESSMENT: 1. Anemia with melanotic stools PLAN: -Continue patient's bowel prep. Will tentatively schedule colonoscopy for tomorrow -Continue to monitor hemoglobin -Continue to monitor for any signs or symptoms of bleeding Physician Appliance Assembler note has been reviewed by physician. Signing provider agrees with the documented findings, assessment, and plan of care. Objective - Vital Signs Vital signs: Vital Signs Temp 98.5 F 11/07/24 08:50 Pulse 89 11/07/24 08:50 Resp 18 11/07/24 08:50 BP 97/58 11/07/24 08:50 Pulse Ox 98 11/07/24 08:50 FiO2 Intake & Output 11/06/24 11/07/24 11/07/24 18:59 06:59 18:59 Intake Total 380 40 Output Total 2 Balance 378 40 Weight 70 kg Intake: IV 70 40 Invasive Line 4 10 20 Invasive Line 5 10 20 Blood Product 310 Rc As-1 Unit 310 [id number] Output: Urine 2 Other: Voiding Method Toilet Toilet # Voids 1 # Bowel Movements 6 2 2 - Labs CBC & Chem 7: 11/07/24 05:35 11/07/24 05:35 Labs: Abnormal Lab Results - Last 24 Hours (Table) 11/03/24 11/06/24 11/06/24 Range/Units 14:01 08:15 14:05 RBC 2.89 L (4.10-5.20) 10*6/uL Hgb 8.8 L D (12.0-15.0) g/dL Hct 26.8 L (37.2-46.3) % Plt Count 129 L (140-440) 10*3/uL Chloride (98-107) mmol/L BUN (7-17) mg/dL Glucose (74-99) mg/dL POC Glucose (mg/dL) (70-110) mg/dL Calcium (8.4-10.2) mg/dL RBC Folate 1,080 H (280 - 791) ng/mL Crossmatch See Detail 11/06/24 11/06/24 11/07/24 Range/Units 14:05 15:51 05:35 RBC 2.25 L (4.10-5.20) 10*6/uL Hgb 6.8 L* D (12.0-15.0) g/dL Hct 21.0 L (37.2-46.3) % Plt Count 82 L (140-440) 10*3/uL Chloride 114 H (98-107) mmol/L BUN 28 H (7-17) mg/dL Glucose 114 H (74-99) mg/dL POC Glucose (mg/dL) 117 H (70-110) mg/dL Calcium 8.3 L (8.4-10.2) mg/dL RBC Folate (280 - 791) ng/mL Crossmatch 11/07/24 Range/Units 05:35 RBC (4.10-5.20) 10*6/uL Hgb (12.0-15.0) g/dL Hct (37.2-46.3) % Plt Count (140-440) 10*3/uL Chloride 114 H (98-107) mmol/L BUN 25 H (7-17) mg/dL Glucose (74-99) mg/dL POC Glucose (mg/dL) (70-110) mg/dL Calcium 8.0 L (8.4-10.2) mg/dL RBC Folate (280 - 791) ng/mL Crossmatch Microbiology - Last 24 Hours (Table) 11/06/24 07:45 Urine Culture - Final Urine,Voided
--- NOTE | 2024-11-07 15:27 | P.PN ---
Subjective Progress Note Date: 11/07/24 Patient initially scheduled for both colonoscopy and EGD .unable to complete her prep for colonoscopy; attempted last night but threw up. Denies abdominal pain. denies any bleeding at home, denies black stools or hemoptysis. Hemoglobin dropped to 5.6, 1 unit of packed RBCs ordered. Stool for occult blood positive. Echo reported severe aortic stenosis, hyperdynamic LV systolic function, LVH, moderate pulmonary hypertension 11/06/2024 patient did have a black tarry stool yesterday afternoon, received 1 unit packed RBCs yesterday. Denies abdominal pain. Denies chest pain, palpitations or shortness of breath. Maintaining O2 sats in the high 90s on room air. this morning hemoglobin 6.3. Another unit of packed RBCs ordered. Potassium 3.4 and magnesium 1.7, supplementation ordered. N.p.o. for EGD. Creatinine stable. Tmax 99.4, normal WBC. 11/07/2024 status post EGD reporting no evidence of upper GI bleeding. Reports she did well receiving Zofran prior to drinking her prep for her colonoscopy, but discloses she fell asleep and therefore did not complete prep. Black tarry stools. Hemoglobin has decreased to 6.8. Staff reports apparently patient had a vasovagal experience yesterday afternoon while on the toilet, passed out for few seconds, a team was called, spontaneously revived and ambulated back to her bed with no complaints. At that time, patient denied chest pain, palpitations or shortness of breath, denied focal deficits. Objective - Vital Signs Vital signs: Vital Signs Temp 98.3 F 11/07/24 03:15 Pulse 85 11/07/24 03:15 Resp 16 11/07/24 03:15 BP 116/64 11/07/24 03:15 Pulse Ox 95 11/07/24 03:15 FiO2 Intake & Output 11/06/24 11/07/24 11/07/24 18:59 06:59 18:59 Intake Total 380 40 Output Total 2 Balance 378 40 Weight 70 kg Intake: IV 70 40 Invasive Line 4 10 20 Invasive Line 5 10 20 Blood Product 310 Rc As-1 Unit 310 [id number] Output: Urine 2 Other: Voiding Method Toilet # Bowel Movements 6 2 - Exam GENERAL: alert and oriented x3, sitting up in bed, no acute distress HEENT: Normocephalic, atraumatic, pupils are round and equal, No scleral icterus. No conjunctival pallor. CARDIOVASCULAR: S1 and S2 present. No murmurs, rubs, or gallops. PULMONARY: Unlabored, equal air entry, clear to auscultation. ABDOMEN: Soft, nontender,nondistended, normoactive bowel sounds. No palpable organomegaly. EXTREMITIES: No cyanosis, clubbing, or pedal edema. NEUROLOGICAL: Gross neurological examination did not reveal any focal deficits. SKIN: Warm and dry, no rashes. - Labs CBC & Chem 7: 11/07/24 05:35 11/07/24 05:35 Labs: Abnormal Lab Results - Last 24 Hours (Table) 11/03/24 11/06/24 11/06/24 Range/Units 14:01 08:15 14:05 RBC 2.89 L (4.10-5.20) 10*6/uL Hgb 8.8 L D (12.0-15.0) g/dL Hct 26.8 L (37.2-46.3) % Plt Count 129 L (140-440) 10*3/uL Chloride (98-107) mmol/L BUN (7-17) mg/dL Glucose (74-99) mg/dL POC Glucose (mg/dL) (70-110) mg/dL Calcium (8.4-10.2) mg/dL RBC Folate 1,080 H (280 - 791) ng/mL Crossmatch See Detail 11/06/24 11/06/24 11/07/24 Range/Units 14:05 15:51 05:35 RBC 2.25 L (4.10-5.20) 10*6/uL Hgb 6.8 L* D (12.0-15.0) g/dL Hct 21.0 L (37.2-46.3) % Plt Count 82 L (140-440) 10*3/uL Chloride 114 H (98-107) mmol/L BUN 28 H (7-17) mg/dL Glucose 114 H (74-99) mg/dL POC Glucose (mg/dL) 117 H (70-110) mg/dL Calcium 8.3 L (8.4-10.2) mg/dL RBC Folate (280 - 791) ng/mL Crossmatch 11/07/24 Range/Units 05:35 RBC (4.10-5.20) 10*6/uL Hgb (12.0-15.0) g/dL Hct (37.2-46.3) % Plt Count (140-440) 10*3/uL Chloride 114 H (98-107) mmol/L BUN 25 H (7-17) mg/dL Glucose (74-99) mg/dL POC Glucose (mg/dL) (70-110) mg/dL Calcium 8.0 L (8.4-10.2) mg/dL RBC Folate (280 - 791) ng/mL Crossmatch Assessment and Plan Assessment: Acute blood loss anemia, melanotic stools, etiology unclear, s/p 3 units of PRBCs Elevated troponins, flat Acute kidney injury Lactic acidosis, resolved UTI, UA reporting positive nitrates, UA pending hypertension Hyperlipidemia Plan: Continue on current medication regimen ,monitoring and symptomatic treatment. Maintain her PPI. Hemoglobin dropped, repeat hemoglobin this afternoon for potential transfusion of another unit of packed RBC. Colonoscopy rescheduled for tomorrow, staff advised to ensure prep.is completed. Close monitoring of hemoglobin, electrolytes, renal function with labs ordered for a.m. The impression and plan of care has been dictated as directed. : I performed a history and examination of this patient, discussed the same with the dictator. I agree with the dictator's note ,documented as a scribe. Any additional findings or plans will be noted.
[2024-11-07] MEDS: POTASSIUM CHLORIDE ER 20 MEQ TAB.ER PO STA (16:19)
[2024-11-07 18:06] LABS: HCT 26.5 % (37.2-46.3); MCH 30.4 pg (27.0-32.0); MCHC 32.5 g/dL (32.0-37.0); MCV 93.6 fL (80.0-97.0); Mean Platelet Volume 11.2 fL (9.5-12.2); Platelet Count 106 10*3/uL (140-440); RBC 2.83 10*6/uL (4.10-5.20); RDW 16.3 % (11.5-14.5); WBC 7.54 10*3/uL (4.50-10.00)
[2024-11-07 18:10] LABS: HGB 8.6 g/dL (12.0-15.0)
[2024-11-08 06:58] LABS: HGB 7.4 g/dL (12.0-15.0); MCH 30.3 pg (27.0-32.0); MCHC 32.2 g/dL (32.0-37.0); MCV 94.3 fL (80.0-97.0); Mean Platelet Volume 11.4 fL (9.5-12.2); RBC 2.44 10*6/uL (4.10-5.20); RDW 16.8 % (11.5-14.5); WBC 5.91 10*3/uL (4.50-10.00)
[2024-11-08 07:16] LABS: African American GFR (CKD) >90 (>60 ml/min/1.73 sqM); Anion Gap 1 mmol/L; Blood Urea Nitrogen 20 mg/dL (7-17); Calcium 7.7 mg/dL (8.4-10.2); Carbon Dioxide 25 mmol/L (22-30); Chloride 113 mmol/L (98-107); Glucose 98 mg/dL (74-99); Magnesium 1.9 mg/dL (1.6-2.3); Non-African American GFR(CKD) 85 (>60 ml/min/1.73 sqM); Potassium 3.8 mmol/L (3.5-5.1); Sodium 139 mmol/L (137-145)
[2024-11-08 08:34] LABS: Platelet Count 99 10*3/uL (140-440)
--- NOTE | 2024-11-08 09:09 | P.PN ---
Subjective Progress Note Date: 11/08/24 The patient did not complete her prep. She is still having brown liquid bowel movements. On exam vital signs appear stable. Abdomen soft. Patient will need to be reprepped. We could perform colonoscopy on Monday prep is adequate. Objective - Vital Signs Vital signs: Vital Signs Temp 97.6 F 11/08/24 06:00 Pulse 87 11/08/24 03:30 Resp 16 11/08/24 03:30 BP 130/72 11/08/24 03:30 Pulse Ox 98 11/08/24 03:30 FiO2 Intake & Output 11/07/24 11/08/24 11/08/24 18:59 06:59 18:59 Intake Total 550 Balance 550 Weight 70 kg Intake: Oral 240 Blood Product 310 Rc As-1 Unit 310 [id number] Other: Voiding Method Toilet Toilet Bedside Commode # Voids 1 # Bowel Movements 1 3 1 - Labs CBC & Chem 7: 11/08/24 06:35 11/08/24 06:29 Labs: Abnormal Lab Results - Last 24 Hours (Table) 11/06/24 11/07/24 11/08/24 Range/Units 08:15 17:53 06:29 RBC 2.83 L (4.10-5.20) 10*6/uL Hgb 8.6 L D (12.0-15.0) g/dL Hct 26.5 L (37.2-46.3) % Plt Count 106 L (140-440) 10*3/uL Chloride 113 H (98-107) mmol/L BUN 20 H (7-17) mg/dL Calcium 7.7 L (8.4-10.2) mg/dL Crossmatch See Detail 11/08/24 Range/Units 06:35 RBC 2.44 L (4.10-5.20) 10*6/uL Hgb 7.4 L (12.0-15.0) g/dL Hct 23.0 L (37.2-46.3) % Plt Count 99 L (140-440) 10*3/uL Chloride (98-107) mmol/L BUN (7-17) mg/dL Calcium (8.4-10.2) mg/dL Crossmatch Microbiology - Last 24 Hours (Table) 11/06/24 07:45 Urine Culture - Final Urine,Voided
--- NOTE | 2024-11-08 20:06 | P.PN ---
Subjective Progress Note Date: 11/08/24 Patient evaluated today on the cardiac unit. Patient had an incomplet bowel prep and is now pending colonoscopy which will be on Monday. No acute complaints. Hemoglobin 7.4 today. Review of Systems Constitutional: Denied any fatigue denied any fever. Cardio vascular: denied any chest pain, palpitations Gastrointestinal: denied any nausea, vomiting, diarrhea Pulmonary: Denied any shortness of breath cough Neurologic denied any new focal deficits All inpatient medications were reviewed and appropriate changes in these medications as dictated in the interval history and assessment and plan. PHYSICAL EXAMINATION: GENERAL: The patient is alert and oriented x3, not in any acute distress. Well developed, well nourished. HEENT: Pupils are round and equally reacting to light. EOMI. No scleral icterus. No conjunctival pallor. Normocephalic, atraumatic. No pharyngeal erythema. No thyromegaly. CARDIOVASCULAR: S1 and S2 present. No murmurs, rubs, or gallops. PULMONARY: Chest is clear to auscultation, no wheezing or crackles. ABDOMEN: Soft, nontender, nondistended, normoactive bowel sounds. No palpable organomegaly. MUSCULOSKELETAL: No joint swelling or deformity. EXTREMITIES: No cyanosis, clubbing, or pedal edema. NEUROLOGICAL: Gross neurological examination did not reveal any focal deficits. SKIN: No rashes. Assessment Acute blood loss anemia, melanotic stools, etiology unclear, s/p 3 units of PRBCs Elevated troponins, flat Acute kidney injury Lactic acidosis, resolved UTI, UA reporting positive nitrates, UA pending hypertension Hyperlipidemia GI prophylaxis DVT prophylaxis: Held for GI Bleeding Plan Continue PPI Continue D5 normal saline at 50 mls/hr Monitor serial hemoglobin Pending colonoscopy today PT/OT consultation The impression and plan of care has been dictated by Aylin Kc, Nurse Practitioner as directed. Dr. Piyush MD I have performed a history and physical examination and medical decision making of this patient, discussed the same with the dictator, and agree with the dictators assessment and plan as written, documented as a scribe. Based on total visit time, I have performed more than 50% of this visit. Objective - Vital Signs Vital signs: Vital Signs Temp 98.3 F 11/08/24 09:20 Pulse 83 11/08/24 11:25 Resp 18 11/08/24 11:25 BP 149/72 11/08/24 11:25 Pulse Ox 97 11/08/24 11:25 FiO2 Intake & Output 11/07/24 11/08/24 11/08/24 18:59 06:59 18:59 Intake Total 550 Balance 550 Weight 70 kg Intake: Oral 240 Blood Product 310 Rc As-1 Unit 310 [id number] Other: Voiding Method Toilet Toilet Toilet Bedside Commode Bedside Commode # Voids 1 1 # Bowel Movements 1 3 2 - Labs CBC & Chem 7: 11/08/24 06:35 11/08/24 06:29 Labs: Abnormal Lab Results - Last 24 Hours (Table) 11/06/24 11/07/24 11/08/24 Range/Units 08:15 17:53 06:29 RBC 2.83 L (4.10-5.20) 10*6/uL Hgb 8.6 L D (12.0-15.0) g/dL Hct 26.5 L (37.2-46.3) % Plt Count 106 L (140-440) 10*3/uL Chloride 113 H (98-107) mmol/L BUN 20 H (7-17) mg/dL Calcium 7.7 L (8.4-10.2) mg/dL Crossmatch See Detail 11/08/24 Range/Units 06:35 RBC 2.44 L (4.10-5.20) 10*6/uL Hgb 7.4 L (12.0-15.0) g/dL Hct 23.0 L (37.2-46.3) % Plt Count 99 L (140-440) 10*3/uL Chloride (98-107) mmol/L BUN (7-17) mg/dL Calcium (8.4-10.2) mg/dL Crossmatch Microbiology - Last 24 Hours (Table) 11/06/24 07:45 Urine Culture - Final Urine,Voided Assessment and Plan Time with Patient: Less than 30
[2024-11-09 08:13] LABS: Basophils # (A) 0.02 10*3/uL (0.00-0.10); Basophils % (A) 0.4 %; Eosinophils # (A) 0.15 10*3/uL (0.04-0.35); Eosinophils % (A) 2.8 %; HCT 21.7 % (37.2-46.3); Lymphocytes # (A) 1.11 10*3/uL (0.90-5.00); Lymphocytes % (A) 20.4 %; MCH 30.1 pg (27.0-32.0); MCHC 31.8 g/dL (32.0-37.0); MCV 94.8 fL (80.0-97.0); Mean Platelet Volume 11.6 fL (9.5-12.2); Monocytes # (A) 0.38 10*3/uL (0.20-1.00); Neutrophils # (A) 3.76 10*3/uL (1.80-7.70); Neutrophils % (A) 68.8 %; RBC 2.29 10*6/uL (4.10-5.20); RDW 16.6 % (11.5-14.5); WBC 5.45 10*3/uL (4.50-10.00)
[2024-11-09 08:17] LABS: Platelet Count 98 10*3/uL (140-440)
[2024-11-09 08:18] LABS: HGB 6.9 g/dL (12.0-15.0)
[2024-11-09 08:23] LABS: African American GFR (CKD) >90 (>60 ml/min/1.73 sqM); Anion Gap 2 mmol/L; Blood Urea Nitrogen 17 mg/dL (7-17); Carbon Dioxide 25 mmol/L (22-30); Chloride 113 mmol/L (98-107); Glucose 107 mg/dL (74-99); Non-African American GFR(CKD) 86 (>60 ml/min/1.73 sqM); Potassium 3.5 mmol/L (3.5-5.1); Sodium 140 mmol/L (137-145)
--- NOTE | 2024-11-09 11:06 | P.PN ---
Subjective Progress Note Date: 11/09/24 The patient finally finished her bowel prep yesterday. She is agreeable to undergo colonoscopy on Monday. On exam vital signs appear stable. Abdomen is soft. Presumed GI bleed. Patient be scheduled for colonoscopy on Monday. Objective - Vital Signs Vital signs: Vital Signs Temp 98.2 F 11/09/24 08:40 Pulse 81 11/09/24 08:40 Resp 20 11/09/24 08:40 BP 123/69 11/09/24 08:40 Pulse Ox 98 11/09/24 08:40 FiO2 Intake & Output 11/08/24 11/09/24 11/09/24 18:59 06:59 18:59 Intake Total 240 400 10 Output Total 1 Balance 239 400 10 Weight 70 kg 70 kg Intake: IV 400 10 Dextrose 5%-0.9% NaCl 1, 400 000 ml @ 50 mls/hr IV . [facility] Rx#:[id number] Invasive Line 6 10 Oral 240 Output: Urine/Stool Mix 1 Other: Voiding Method Toilet Toilet Toilet Bedside Commode Bedside Commode Bedside Commode # Voids 1 # Bowel Movements 2 2 - Labs CBC & Chem 7: 11/09/24 07:25 11/09/24 07:25 Labs: Abnormal Lab Results - Last 24 Hours (Table) 11/06/24 11/09/24 11/09/24 Range/Units 08:15 07:25 07:25 RBC 2.29 L (4.10-5.20) 10*6/uL Hgb 6.9 L* (12.0-15.0) g/dL Hct 21.7 L (37.2-46.3) % MCHC 31.8 L (32.0-37.0) g/dL Plt Count 98 L (140-440) 10*3/uL Chloride 113 H (98-107) mmol/L Glucose 107 H (74-99) mg/dL Calcium 8.0 L (8.4-10.2) mg/dL Crossmatch See Detail
--- NOTE | 2024-11-09 14:47 | P.PN ---
Subjective Progress Note Date: 11/09/24 Patient evaluated today on the cardiac unit. Patient had an incomplet bowel prep and is now pending colonoscopy which will be on Monday. No acute complaints. Hemoglobin 7.4 today. 11/09/2024 Patient evaluated in follow-up on the medical floor. She is currently pending colonoscopy on Monday. Hemoglobin today was 6.9 and patient received a unit of PRBCs. Recommend to stop the IV ceftriaxone urine culture is final and negative. Review of Systems Constitutional: Denied any fatigue denied any fever. Cardio vascular: denied any chest pain, palpitations Gastrointestinal: denied any nausea, vomiting, diarrhea Pulmonary: Denied any shortness of breath cough Neurologic denied any new focal deficits All inpatient medications were reviewed and appropriate changes in these medications as dictated in the interval history and assessment and plan. PHYSICAL EXAMINATION: GENERAL: The patient is alert and oriented x3, not in any acute distress. Well developed, well nourished. HEENT: Pupils are round and equally reacting to light. EOMI. No scleral icterus. No conjunctival pallor. Normocephalic, atraumatic. No pharyngeal erythema. No thyromegaly. CARDIOVASCULAR: S1 and S2 present. No murmurs, rubs, or gallops. PULMONARY: Chest is clear to auscultation, no wheezing or crackles. ABDOMEN: Soft, nontender, nondistended, normoactive bowel sounds. No palpable organomegaly. MUSCULOSKELETAL: No joint swelling or deformity. EXTREMITIES: No cyanosis, clubbing, or pedal edema. NEUROLOGICAL: Gross neurological examination did not reveal any focal deficits. SKIN: No rashes. Assessment Acute blood loss anemia, melanotic stools, etiology unclear, s/p 3 units of PRBCs Elevated troponins, flat Acute kidney injury Lactic acidosis, resolved UTI, UA reporting positive nitrates, UA pending hypertension Hyperlipidemia GI prophylaxis DVT prophylaxis: Held for GI Bleeding Plan Continue PPI Continue D5 normal saline at 50 mls/hr Monitor serial hemoglobin Pending colonoscopy Monday Transfuse for hemoglobin less than 7 PT/OT consultation The impression and plan of care has been dictated by Aylin Kc Nurse Practitioner as directed. Dr. Piyush MD I have performed a history and physical examination and medical decision making of this patient, discussed the same with the dictator, and agree with the dictators assessment and plan as written, documented as a scribe. Based on total visit time, I have performed more than 50% of this visit. Objective - Vital Signs Vital signs: Vital Signs Temp 98.6 F 11/09/24 14:10 Pulse 90 11/09/24 14:10 Resp 18 11/09/24 14:10 BP 129/71 11/09/24 14:10 Pulse Ox 98 11/09/24 14:10 FiO2 Intake & Output 11/08/24 11/09/24 11/09/24 18:59 06:59 18:59 Intake Total 240 400 10 Output Total 1 Balance 239 400 10 Weight 70 kg 70 kg Intake: IV 400 10 Dextrose 5%-0.9% NaCl 1, 400 000 ml @ 50 mls/hr IV . [facility] Rx#:[id number] Invasive Line 6 10 Oral 240 Blood Product 0 Rc As-1 Unit 0 [id number] Output: Urine/Stool Mix 1 Other: Voiding Method Toilet Toilet Toilet Bedside Commode Bedside Commode Bedside Commode # Voids 1 # Bowel Movements 2 1 - Labs CBC & Chem 7: 11/09/24 07:25 11/09/24 07:25 Labs: Abnormal Lab Results - Last 24 Hours (Table) 11/06/24 11/09/24 11/09/24 Range/Units 08:15 07:25 07:25 RBC 2.29 L (4.10-5.20) 10*6/uL Hgb 6.9 L* (12.0-15.0) g/dL Hct 21.7 L (37.2-46.3) % MCHC 31.8 L (32.0-37.0) g/dL Plt Count 98 L (140-440) 10*3/uL Chloride 113 H (98-107) mmol/L Glucose 107 H (74-99) mg/dL Calcium 8.0 L (8.4-10.2) mg/dL Crossmatch See Detail
[2024-11-09] MEDS: LACTATED RINGERS 1,000 ML IV SCH (20:13)
[2024-11-09] MEDS: PANTOPRAZOLE 40 MG/10 ML VIAL IV SCH (20:15)
[2024-11-09 23:06] LABS: Basophils # (A) 0.03 10*3/uL (0.00-0.10); Basophils % (A) 0.5 %; Eosinophils # (A) 0.19 10*3/uL (0.04-0.35); Eosinophils % (A) 3.1 %; HGB 7.8 g/dL (12.0-15.0); Lymphocytes # (A) 1.35 10*3/uL (0.90-5.00); Lymphocytes % (A) 22.1 %; MCH 30.4 pg (27.0-32.0); MCHC 32.5 g/dL (32.0-37.0); MCV 93.4 fL (80.0-97.0); Mean Platelet Volume 11.3 fL (9.5-12.2); Monocytes # (A) 0.48 10*3/uL (0.20-1.00); Monocytes % (A) 7.9 %; Neutrophils # (A) 4.03 10*3/uL (1.80-7.70); Neutrophils % (A) 66.1 %; RBC 2.57 10*6/uL (4.10-5.20); RDW 15.8 % (11.5-14.5)
[2024-11-09 23:24] LABS: Platelet Count 87 10*3/uL (140-440)
[2024-11-10 06:16] LABS: Basophils # (A) 0.02 10*3/uL (0.00-0.10); Basophils % (A) 0.4 %; Eosinophils # (A) 0.21 10*3/uL (0.04-0.35); Eosinophils % (A) 4.2 %; HCT 23.7 % (37.2-46.3); HGB 7.8 g/dL (12.0-15.0); Lymphocytes # (A) 1.13 10*3/uL (0.90-5.00); Lymphocytes % (A) 22.8 %; MCH 30.8 pg (27.0-32.0); MCHC 32.9 g/dL (32.0-37.0); MCV 93.7 fL (80.0-97.0); Mean Platelet Volume 11.7 fL (9.5-12.2); Monocytes # (A) 0.39 10*3/uL (0.20-1.00); Monocytes % (A) 7.9 %; Neutrophils # (A) 3.19 10*3/uL (1.80-7.70); Neutrophils % (A) 64.3 %; Platelet Count 84 10*3/uL (140-440); RBC 2.53 10*6/uL (4.10-5.20); RDW 15.8 % (11.5-14.5); WBC 4.96 10*3/uL (4.50-10.00)
--- NOTE | 2024-11-10 09:37 | P.PN ---
Subjective Progress Note Date: 11/10/24 Patient main stable. She is scheduled for colonoscopy in the a.m. Objective - Vital Signs Vital signs: Vital Signs Temp 97.8 F 11/10/24 03:23 Pulse 76 11/10/24 03:23 Resp 16 11/10/24 03:23 BP 133/76 11/10/24 03:23 Pulse Ox 98 11/10/24 03:23 FiO2 Intake & Output 11/09/24 11/10/24 11/10/24 18:59 06:59 18:59 Intake Total 320 10 Balance 320 10 Weight 67.6 kg Intake: IV 10 10 Invasive Line 6 10 Invasive Line 7 10 Blood Product 310 Rc As-1 Unit 310 [id number] Other: Voiding Method Toilet Toilet Bedside Commode Bedside Commode # Voids 2 # Bowel Movements 1 1 - Labs CBC & Chem 7: 11/10/24 05:53 11/09/24 07:25 Labs: Abnormal Lab Results - Last 24 Hours (Table) 11/06/24 11/09/24 11/10/24 Range/Units 08:15 22:38 05:53 RBC 2.57 L 2.53 L (4.10-5.20) 10*6/uL Hgb 7.8 L 7.8 L (12.0-15.0) g/dL Hct 24.0 L 23.7 L (37.2-46.3) % Plt Count 87 L 84 L (140-440) 10*3/uL Crossmatch See Detail
--- NOTE | 2024-11-10 13:42 | P.PN ---
Subjective Progress Note Date: 11/10/24 Patient evaluated today on the cardiac unit. Patient had an incomplet bowel prep and is now pending colonoscopy which will be on Monday. No acute complaints. Hemoglobin 7.4 today. 11/09/2024 Patient evaluated in follow-up on the medical floor. She is currently pending colonoscopy on Monday. Hemoglobin today was 6.9 and patient received a unit of PRBCs. Recommend to stop the IV ceftriaxone urine culture is final and negative. 11/10/2024 Patient evaluated in follow-up on the cardiac unit. Hemoglobin has remained stable at 7.8. She is currently pending colonoscopy tomorrow. She has completed a course of antibiotics. Her stools are still dark per the staff, she is incontinent of stool. Review of Systems Constitutional: Denied any fatigue denied any fever. Cardio vascular: denied any chest pain, palpitations Gastrointestinal: denied any nausea, vomiting, diarrhea Pulmonary: Denied any shortness of breath cough Neurologic denied any new focal deficits All inpatient medications were reviewed and appropriate changes in these medications as dictated in the interval history and assessment and plan. PHYSICAL EXAMINATION: GENERAL: The patient is alert and oriented x3, not in any acute distress. Well developed, well nourished. HEENT: Pupils are round and equally reacting to light. EOMI. No scleral icterus. No conjunctival pallor. Normocephalic, atraumatic. No pharyngeal erythema. No thyromegaly. CARDIOVASCULAR: S1 and S2 present. No murmurs, rubs, or gallops. PULMONARY: Chest is clear to auscultation, no wheezing or crackles. ABDOMEN: Soft, nontender, nondistended, normoactive bowel sounds. No palpable organomegaly. MUSCULOSKELETAL: No joint swelling or deformity. EXTREMITIES: No cyanosis, clubbing, or pedal edema. NEUROLOGICAL: Gross neurological examination did not reveal any focal deficits. SKIN: No rashes. Assessment Acute blood loss anemia, melanotic stools, etiology unclear, s/p 3 units of PRBCs Elevated troponins, flat Acute kidney injury Lactic acidosis, resolved UTI, UA reporting positive nitrates, UA pending hypertension Hyperlipidemia GI prophylaxis DVT prophylaxis: Held for GI Bleeding Plan Continue PPI Continue D5 normal saline at 50 mls/hr Monitor serial hemoglobin Pending colonoscopy Monday Transfuse for hemoglobin less than 7 PT/OT consultation The impression and plan of care has been dictated by Aylin Kc, Nurse Practitioner as directed. Dr. Piyush MD I have performed a history and physical examination and medical decision making of this patient, discussed the same with the dictator, and agree with the dictators assessment and plan as written, documented as a scribe. Based on total visit time, I have performed more than 50% of this visit. Objective - Vital Signs Vital signs: Vital Signs Temp 97.8 F 11/10/24 03:23 Pulse 76 11/10/24 03:23 Resp 16 11/10/24 03:23 BP 133/76 11/10/24 03:23 Pulse Ox 98 11/10/24 03:23 FiO2 Intake & Output 11/09/24 11/10/24 11/10/24 18:59 06:59 18:59 Intake Total 320 10 Balance 320 10 Weight 67.6 kg Intake: IV 10 10 Invasive Line 6 10 Invasive Line 7 10 Blood Product 310 Rc As-1 Unit 310 [id number] Other: Voiding Method Toilet Toilet Bedside Commode Bedside Commode # Voids 2 # Bowel Movements 1 1 - Labs CBC & Chem 7: 11/10/24 05:53 11/09/24 07:25 Labs: Abnormal Lab Results - Last 24 Hours (Table) 11/06/24 11/09/24 11/10/24 Range/Units 08:15 22:38 05:53 RBC 2.57 L 2.53 L (4.10-5.20) 10*6/uL Hgb 7.8 L 7.8 L (12.0-15.0) g/dL Hct 24.0 L 23.7 L (37.2-46.3) % Plt Count 87 L 84 L (140-440) 10*3/uL Crossmatch See Detail Assessment and Plan Time with Patient: Less than 30
[2024-11-10] MEDS: MAGNESIUM CITRATE 296 ML BOTTLE PO ONE (16:30)
[2024-11-11 09:08] LABS: Basophils # (A) 0.04 10*3/uL (0.00-0.10); Basophils % (A) 0.8 %; Eosinophils % (A) 3.9 %; HCT 26.6 % (37.2-46.3); HGB 8.6 g/dL (12.0-15.0); Lymphocytes # (A) 1.23 10*3/uL (0.90-5.00); Lymphocytes % (A) 23.9 %; MCH 30.9 pg (27.0-32.0); MCHC 32.3 g/dL (32.0-37.0); MCV 95.7 fL (80.0-97.0); Mean Platelet Volume 11.9 fL (9.5-12.2); Monocytes # (A) 0.36 10*3/uL (0.20-1.00); Neutrophils # (A) 3.29 10*3/uL (1.80-7.70); Platelet Count 104 10*3/uL (140-440); RBC 2.78 10*6/uL (4.10-5.20); RDW 15.9 % (11.5-14.5); WBC 5.14 10*3/uL (4.50-10.00)
--- NOTE | 2024-11-11 12:07 | P.PN ---
Subjective Progress Note Date: 11/11/24 SURGICAL PROGRESS NOTE CHIEF COMPLAINT: Anemia HISTORY OF PRESENT ILLNESS: Patient completed bowel prep. She does report the stools are still not clear. She is scheduled for colonoscopy today. Hemoglobin 8.6. Vital stable PHYSICAL EXAM: VITAL SIGNS: Reviewed. GENERAL: Well-developed in no acute distress. ABDOMEN: Soft. Nondistended. Nontender. NEUROLOGIC: Alert and oriented. Cranial nerves II through XII grossly intact. ASSESSMENT: 1. Anemia with melanotic stools PLAN: -Patient scheduled for colonoscopy today Physician Group Controller note has been reviewed by physician. Signing provider agrees with the documented findings, assessment, and plan of care. Objective - Vital Signs Vital signs: Vital Signs Temp 97.9 F 11/11/24 07:48 Pulse 81 11/11/24 07:48 Resp 16 11/11/24 07:48 BP 121/63 11/11/24 07:48 Pulse Ox 98 11/11/24 08:13 FiO2 21 11/11/24 08:13 Intake & Output 11/10/24 11/11/24 11/11/24 18:59 06:59 18:59 Weight 67.6 kg Other: Voiding Method Toilet Bedside Commode Bedside Commode # Bowel Movements 2 2 1 - Labs CBC & Chem 7: 11/11/24 08:37 11/09/24 07:25 Labs: Abnormal Lab Results - Last 24 Hours (Table) 11/09/24 11/11/24 Range/Units 22:38 08:37 RBC 2.78 L (4.10-5.20) 10*6/uL Hgb 8.6 L (12.0-15.0) g/dL Hct 26.6 L (37.2-46.3) % Plt Count 104 L (140-440) 10*3/uL Crossmatch See Detail
--- NOTE | 2024-11-11 12:11 | P.PN ---
Subjective Progress Note Date: 11/11/24 Patient initially scheduled for both colonoscopy and EGD .unable to complete her prep for colonoscopy; attempted last night but threw up. Denies abdominal pain. denies any bleeding at home, denies black stools or hemoptysis. Hemoglobin dropped to 5.6, 1 unit of packed RBCs ordered. Stool for occult blood positive. Echo reported severe aortic stenosis, hyperdynamic LV systolic function, LVH, moderate pulmonary hypertension 11/06/2024 patient did have a black tarry stool yesterday afternoon, received 1 unit packed RBCs yesterday. Denies abdominal pain. Denies chest pain, palpitations or shortness of breath. Maintaining O2 sats in the high 90s on room air. this morning hemoglobin 6.3. Another unit of packed RBCs ordered. Potassium 3.4 and magnesium 1.7, supplementation ordered. N.p.o. for EGD. Creatinine stable. Tmax 99.4, normal WBC. 11/07/2024 status post EGD reporting no evidence of upper GI bleeding. Reports she did well receiving Zofran prior to drinking her prep for her colonoscopy, but discloses she fell asleep and therefore did not complete prep. Black tarry stools. Hemoglobin has decreased to 6.8. Staff reports apparently patient had a vasovagal experience yesterday afternoon while on the toilet, passed out for few seconds, a team was called, spontaneously revived and ambulated back to her bed with no complaints. At that time, patient denied chest pain, palpitations or shortness of breath, denied focal deficits. 11/11/24 required additional transfusions of packed RBCs over the weekend .hemoglobin currently 8.6 .completed prep, has been on clear liquid diet for the past few days, reports still not clear. Consumed citrate of mag additionally.npo. Scheduled for colonoscopy today. Denies abdominal pain. Vital signs stable. Denies chest pain, palpitations or shortness of breath. Maintaining O2 sats in the high 90s on room air. Objective - Vital Signs Vital signs: Vital Signs Temp 97.9 F 11/11/24 07:48 Pulse 81 11/11/24 07:48 Resp 16 11/11/24 07:48 BP 121/63 11/11/24 07:48 Pulse Ox 98 11/11/24 08:13 FiO2 21 11/11/24 08:13 Intake & Output 11/10/24 11/11/24 11/11/24 18:59 06:59 18:59 Weight 67.6 kg Other: Voiding Method Toilet Bedside Commode Bedside Commode # Bowel Movements 2 2 1 - Exam GENERAL: alert and oriented x3, sitting up in bed, no acute distress HEENT: Normocephalic, atraumatic, pupils are round and equal, No scleral icterus. No conjunctival pallor. CARDIOVASCULAR: S1 and S2 present. No murmurs, rubs, or gallops. PULMONARY: Unlabored, equal air entry, clear to auscultation. ABDOMEN: Soft, nontender,nondistended, normoactive bowel sounds. No palpable organomegaly. EXTREMITIES: No cyanosis, clubbing, or pedal edema. NEUROLOGICAL: Gross neurological examination did not reveal any focal deficits. SKIN: Warm and dry, no rashes. - Labs CBC & Chem 7: 11/12/24 11:11 11/12/24 11:11 Labs: Abnormal Lab Results - Last 24 Hours (Table) 11/09/24 11/11/24 Range/Units 22:38 08:37 RBC 2.78 L (4.10-5.20) 10*6/uL Hgb 8.6 L (12.0-15.0) g/dL Hct 26.6 L (37.2-46.3) % Plt Count 104 L (140-440) 10*3/uL Crossmatch See Detail Assessment and Plan Assessment: Acute blood loss anemia, melanotic stools, etiology unclear, s/p 5 units of PRBCs Elevated troponins, flat Acute kidney injury Lactic acidosis, resolved UTI, UA reporting positive nitrates, UA negative hypertension Hyperlipidemia Plan: Continue on current medication regimen ,monitoring and symptomatic treatment. Maintain PPI. NPO, rescheduled for colonoscopy today. Close monitoring of hemoglobin. Discharge planning in progress pending colonoscopy results, stable hemoglobin and clearance per general surgery. The impression and plan of care has been dictated as directed. : I performed a history and examination of this patient, discussed the same with the dictator. I agree with the dictator's note ,documented as a scribe. Any additional findings or plans will be noted.
[2024-11-11] MEDS ORDERED: PROPOFOL 10 MG/ML 20 ML VIAL IV ONE (14:59)
[2024-11-11] MEDS: IV FLUID CONTINUATION 1,000 ML IV ONE (15:12)
--- NOTE | 2024-11-11 15:13 | P.OP ---
Date of Procedure: 11/11/24 Preoperative Diagnosis: GI bleed Postoperative Diagnosis: Severe diverticulosis Procedure(s) Performed: Colonoscopy Anesthesia: MAC Surgeon: Keven Costa Pathology: none sent Condition: stable Disposition: PACU Description of Procedure: The patient was placed on the endoscopy table in the lateral position. She received IV sedation. Digital rectal exam was performed which revealed no abnormalities. A flex colonoscope was then placed patient Anaspaz throughout the entire colon. The ileocecal valve was visualized. The cecum, ascending and transverse colon appeared normal. In the descending sigmoid colon there is extensive diverticular changes. The scope was then brought back to the rectum t his appeared normal. Scope withdrawn for the patient. There is no evidence of GI bleed. Presumed the patient may have had bleeding from diverticulosis.
[2024-11-12 07:35] VITALS: RESP 16
[2024-11-12 11:30] LABS: HCT 28.7 % (37.2-46.3); HGB 9.2 g/dL (12.0-15.0); Immature Platelet Fraction 5.5 % (1.1-6.1); MCH 30.3 pg (27.0-32.0); MCHC 32.1 g/dL (32.0-37.0); MCV 94.4 fL (80.0-97.0); Mean Platelet Volume 11.4 fL (9.5-12.2); Platelet Count 133 10*3/uL (140-440); RBC 3.04 10*6/uL (4.10-5.20); RDW 15.9 % (11.5-14.5); WBC 6.36 10*3/uL (4.50-10.00)
[2024-11-12 11:47] LABS: African American GFR (CKD) 83 (>60 ml/min/1.73 sqM); Anion Gap 5 mmol/L; Blood Urea Nitrogen 10 mg/dL (7-17); Calcium 8.4 mg/dL (8.4-10.2); Carbon Dioxide 25 mmol/L (22-30); Chloride 111 mmol/L (98-107); Glucose 99 mg/dL (74-99); Magnesium 2.2 mg/dL (1.6-2.3); Non-African American GFR(CKD) 72 (>60 ml/min/1.73 sqM); Potassium 3.1 mmol/L (3.5-5.1); Sodium 141 mmol/L (137-145)
[2024-11-12] MEDS: POTASSIUM CHLORIDE ER 20 MEQ TAB.ER PO SCH (12:23)
--- NOTE | 2024-11-12 13:16 | P.PN ---
Subjective Progress Note Date: 11/12/24 SURGICAL PROGRESS NOTE CHIEF COMPLAINT: Anemia HISTORY OF PRESENT ILLNESS: Patient status post colonoscopy that had reported severe diverticulosis. Patient denies any further bleeding. Denies any abdomi nal pain. Hgb did go up from 8.6-9.2 Patient seen and examined with Dr. Costa PHYSICAL EXAM: VITAL SIGNS: Reviewed. GENERAL: Well-developed in no acute distress. ABDOMEN: Soft. Nondistended. Nontender. NEUROLOGIC: Alert and oriented. Cranial nerves II through XII grossly intact. ASSESSMENT: 1. Anemia with melanotic stools status post normal EGD and colonoscopy with severe diverticulosis PLAN: - Okay to resume Plavix - Patient can be discharged from surgical standpoint Physician Predatory Hunter note has been reviewed by physician. Signing provider agrees with the documented findings, assessment, and plan of care. Objective - Vital Signs Vital signs: Vital Signs Temp 98.1 F 11/12/24 06:50 Pulse 76 11/12/24 06:50 Resp 16 11/12/24 06:50 BP 146/74 11/12/24 06:50 Pulse Ox 95 11/12/24 06:50 FiO2 21 11/11/24 08:13 Intake & Output 11/11/24 11/12/24 11/12/24 18:59 06:59 18:59 Intake Total 700 Balance 700 Weight 68.8 kg Intake: IV 700 Other: Voiding Method Bedside Commode # Voids 1 2 # Bowel Movements 1 1 - Labs CBC & Chem 7: 11/12/24 11:11 11/12/24 11:11 Labs: Abnormal Lab Results - Last 24 Hours (Table) 11/12/24 11/12/24 Range/Units 11:11 11:11 RBC 3.04 L (4.10-5.20) 10*6/uL Hgb 9.2 L (12.0-15.0) g/dL Hct 28.7 L (37.2-46.3) % RDW 15.9 H (11.5-14.5) % Plt Count 133 L (140-440) 10*3/uL Potassium 3.1 L (3.5-5.1) mmol/L Chloride 111 H (98-107) mmol/L
--- NOTE | 2024-11-12 14:40 | P.DS ---
Providers Date of admission: 11/02/24 22:30 Expected date of discharge: 11/12/24 Attending physician: Damien Vargas Consults: 11/03/24 06:37 Consult Physician Routine Consulting Provider: Keven Costa Consult Reason/Comments: low hgb on admit, +occult Do you want consulting provider notified?: Yes Primary care physician: Damien Vargas Hospital Course: Final Diagnosis: Acute blood loss anemia, melanotic stools, etiology unclear, s/p 5 units of PRBCs. Status post colonoscopy reporting severe diverticulosis;extensive diverticular changes in the descending sigmoid colon, no evidence of GI bleed. Follow-up with GI outpatient. Elevated troponins, flat Acute kidney injury Lactic acidosis, resolved UTI, UA reporting positive nitrates, UA negative hypertension Hyperlipidemia Hypokalemia Hospital course:Patient initially scheduled for both colonoscopy and EGD .unable to complete her prep for colonoscopy; attempted last night but threw up. Denies abdominal pain. denies any bleeding at home, denies black stools or hemoptysis. Hemoglobin dropped to 5.6, 1 unit of packed RBCs ordered. Stool for occult blood positive. Echo reported severe aortic stenosis, hyperdynamic LV systolic function, LVH, moderate pulmonary hypertension 11/06/2024 patient did have a black tarry stool yesterday afternoon, received 1 unit packed RBCs yesterday. Denies abdominal pain. Denies chest pain, palpitations or shortness of breath. Maintaining O2 sats in the high 90s on room air. this morning hemoglobin 6.3. Another unit of packed RBCs ordered. Potassium 3.4 and magnesium 1.7, supplementation ordered. N.p.o. for EGD. Creatinine stable. Tmax 99.4, normal WBC. 11/07/2024 status post EGD reporting no evidence of upper GI bleeding. Reports she did well receiving Zofran prior to drinking her prep for her colonoscopy, but discloses she fell asleep and therefore did not complete prep. Black tarry stools. Hemoglobin has decreased to 6.8. Staff reports apparently patient had a vasovagal experience yesterday afternoon while on the toilet, passed out for few seconds, a team was called, spontaneously revived and ambulated back to her bed with no complaints. At that time, patient denied chest pain, palpitations or shortness of breath, denied focal deficits. 11/11/24 required additional transfusions of packed RBCs over the weekend .hemoglobin currently 8.6 .completed prep, has been on clear liquid diet for the past few days, reports still not clear. Consumed citrate of mag additionally.npo. Scheduled for colonoscopy today. Denies abdominal pain. Vital signs stable. Denies chest pain, palpitations or shortness of breath. Maintaining O2 sats in the high 90s on room air. Status post colonoscopy reporting severe diverticulosis, extensive diverticular changes in the descending sigmoid colon, no evidence of GI bleed-presume the patient may have had bleeding from the diverticulosis as per general surgery with clearance to resume Plavix. Hemoglobin 9.2. Potassium 3.1, receiving potassium supplementation, magnesium 2.2. Patient has been cleared by general surgery for discharge. Denies any chest pain, palpitations or shortness of breath. Denies lightheadedness, dizziness or focal deficits. Positive diet intake, denies nausea vomiting or diarrhea. Denies bleeding. Denies abdominal pain. Patient will be discharged home today in a stable condition with guarded prognosis. The impression and plan of care has been dictated as directed. : I performed a history and examination of this patient, discussed the same with the dictator. I agree with the dictator's note ,documented as a scribe. Any additional findings or plans will be noted. Patient Condition at Discharge: Stable Plan - Discharge Summary Discharge Rx Participant: No New Discharge Prescriptions: New Pantoprazole [Protonix] 40 mg PO DAILY #30 tab Continue amLODIPine BESYLATE/BENAZEPRIL [Lotrel 5-20 MG] 1 cap PO DAILY Clopidogrel [Plavix] 75 mg PO DAILY Atorvastatin Calcium [Lipitor] 40 mg PO DAILY Discontinued cloNIDine HCL [Catapres] 0.2 mg PO BID Aspirin EC [Ecotrin] 81 mg PO DAILY Discharge Medication List amLODIPine BESYLATE/BENAZEPRIL [Lotrel 5-20 MG] 1 cap PO DAILY 01/31/14 [History] Clopidogrel [Plavix] 75 mg PO DAILY 09/09/15 [History] Atorvastatin Calcium [Lipitor] 40 mg PO DAILY 11/03/24 [History] Pantoprazole [Protonix] 40 mg PO DAILY #30 tab 11/12/24 [Rx] Follow up Appointment(s)/Referral(s): [facility] [facility] [NON-STAFF] - (can help with house cleaning and Meals on Wheels. ) Damien Vargas DO [Primary Care Provider] - 11/21/24 3:30 pm Paulette White MD [STAFF PHYSICIAN] - 1 Week (Consider capsule study office not answering please call to schedule appointment) Ambulatory/Diagnostic Orders: Complete Blood Count w/diff [LAB.AMB] Time Frame: 3 Days, Location: None Selected Patient Instructions/Handouts: Diverticulosis (DC) Discharge/Stand Alone Forms: Who Do I Call?, Help In The Home
[2024-11-12 14:43] VITALS: BP 117/68; PULSE 74; TEMP 98.8
[2024-11-12 15:48] VITALS: BMI 29.6
--- NOTE | 2024-11-18 14:55 | CDI ---
Documentation Clarification Form Date: 11/18/2024 02:13:54 PM From: Abby Cho RN, CCDS Email: [email or web address] Admit Date: 11/02/2024 10:30:00 PM Patient Name: Cristina Cowart Visit Number: [id number] Discharge Date: 11/12/2024 03:55:00 PM ATTENTION: The Clinical Documentation Specialists (CDI) and [facility] Coding Staff appreciate your assistance in clarifying documentation. Please respond to the clarification below the line at the bottom and electronically sign. The CDI & [facility] Coding staff will review the response and follow-up if needed. Please note: Queries are made part of the Legal Health Record. If you have any questions, please contact the author of this message via ITS. Doctor Damien Vargas The 11/11 procedure note indicates severe diverticulosis and the patient was on Plavix and Aspirin. Based on this information and the findings below, is there an additional diagnosis that is clinically appropriate for this patient? History/Risk Factors: HTN and HLD. Presents with general weakness and body aches. Admitted with blood in stools and anemia. S/P EGD and colonoscopy. Clinical Indicators: Stool OB + 11/02-11/12 Hgb: 6.0-7.6-5.6-6.9-8.6-9.2 11/02 PT/PTT/INR: 11.6/21.1/1.1 11/03 H&P: "Hold Aspirin and Plavix." 11/03 Surgery consult: "GI bleed on Plavix." 11/11 EGD: In the descending sigmoid colon there is extensive diverticular changes. 11/11 Procedure note: "There is no evidence of GI bleed. Presumed the patient may have had bleeding from diverticulosis." 11/12 Discharge summary: "Status post colonoscopy reporting severe diverticulosis, extensive diverticular changes in the descending sigmoid colon, no evidence of GI bleed-presume the patient may have had bleeding from the diverticulosis as per general surgery with clearance to resume Plavix." Treatment: Hold Aspirin and Plavix IV Fluid; 1L 0.9 NS IV bolus x2 on 11/02; PRBC Transfusion: 1 unit on 11/03, 11/05, 11/06,11/07 and 11/09 Is there an additional diagnosis that is clinically appropriate for this patient? [X] GI bleeding from diverticulosis due to Plavix and Aspirin [ ] No additional diagnosis [ ] Other, please specify [ ] Unable to determine MTDD
== END 2024-11-12 15:55 | disposition home or self-care (01) | DRG 813 ==
LOC: EC 19:24 → 3SCARD 22:30 → 4SSUR 11-11 22:48
PROVIDERS: ADMIT Family Medicine; ATTEND Family Medicine
PROC: 30233N1 Transfusion of Nonautologous Red Blood Cells into Peripheral Vein, Percutaneous Approach (ICD-10-PCS; 2024-11-03)
PROC: 0DJ08ZZ Inspection of Upper Intestinal Tract, Via Natural or Artificial Opening Endoscopic (ICD-10-PCS; principal; 2024-11-06 09:30)
PROC: 0DJD8ZZ Inspection of Lower Intestinal Tract, Via Natural or Artificial Opening Endoscopic (ICD-10-PCS; 2024-11-06 09:30)
DX: D68.32 Hemorrhagic disorder due to extrinsic circulating anticoagulants (principal); K57.31 Diverticulosis of large intestine without perforation or abscess with bleeding; E87.20 Acidosis, unspecified; I27.20 Pulmonary hypertension, unspecified; I10 Essential (primary) hypertension; I35.0 Nonrheumatic aortic (valve) stenosis; D62 Acute posthemorrhagic anemia; N17.9 Acute kidney failure, unspecified; N39.0 Urinary tract infection, site not specified; T45.525A Adverse effect of antithrombotic drugs, initial encounter; T39.015A Adverse effect of aspirin, initial encounter; G62.9 Polyneuropathy, unspecified; E86.0 Dehydration; E78.5 Hyperlipidemia, unspecified; E87.6 Hypokalemia; I25.10 Atherosclerotic heart disease of native coronary artery without angina pectoris; Z90.710 Acquired absence of both cervix and uterus; Z87.891 Personal history of nicotine dependence; Z86.73 Personal history of transient ischemic attack (TIA), and cerebral infarction without residual deficits; Z85.42 Personal history of malignant neoplasm of other parts of uterus; Z79.899 Other long term (current) drug therapy; Z79.82 Long term (current) use of aspirin; Z79.02 Long term (current) use of antithrombotics/antiplatelets
CPT/HCPCS: 36410; 36415; 36430; 43235; 45378; 71046; 74176; 76937; 80048; 80053; 81001; 82272; 82607; 82728; 82747; 83540; 83550; 83605; 83735; 83880; 84100; 84484; 85025; 85027; 85610; 85652; 85730; 86140; 86850; 86900; 86901; 86920; 87086; 93005; 93306; 94760; 96360; 96361; 99291

== ENCOUNTER 2025-01-07 09:53 | Emergency (ER) | payer MEDICARE ==
[2025-01-07] MEDS: SODIUM CHLORIDE 0.9% 500 ML 500 ML IV STA (11:34)
[2025-01-07] MEDS: BACITRACIN OINT 1 EACH PACKET TOPICAL ONE (11:35)
--- NOTE | 2025-01-07 11:44 | CT ---
EXAMINATION TYPE: CT brain s[facility] agudelo con DATE OF EXAM: 01/07/2025 COMPARISON: None CLINICAL INDICATION: Female, 79 years old with history of syncope,pain; [facility], TECHNIQUE: CT scan of the head and cervical spine are performed without contrast. CT DLP: 1252.9 mGycm Automated exposure control for dose reduction was used. FINDINGS: Hypoattenuation in the white matter is nonspecific but most typical of remote microvascular ischemia. Mild hyperostosis of the frontal calvarium. Calvarium otherwise intact. Mild changes of chronic sinu sitis. No midline shift or mass effect. No acute intracranial hemorrhage. Intracranial atheroscleroti c changes. Hypodensities within the basal ganglia most typical remote lacunar infarct. Multilevel mild to moderate hypertrophic and degenerative change. Severe degenerative change of the a tlantoaxial joint. Multilevel facet arthropathy. Mild generalized demineralization. Vascular calcific ations of the carotid arteries. Assessment spinal canal limited due to artifact and resolution. No ob vious canal stenosis. Multilevel facet arthropathy and mild foraminal encroachment. IMPRESSION: 1. There is no acute fracture or dislocation evident in the cervical spine. 2. No acute intracranial hemorrhage, mass effect, or midline shift is seen. [facility], , 01/07/2025 11:42 AM
[2025-01-07 11:50] LABS: ALT 14 U/L (4-34); AST 24 U/L (14-36); African American GFR (CKD) 75 (>60 ml/min/1.73 sqM); Albumin 3.7 g/dL (3.5-5.0); Alkaline Phosphatase 74 U/L (38-126); Anion Gap 8 mmol/L; Blood Urea Nitrogen 25 mg/dL (7-17); Calcium 9.0 mg/dL (8.4-10.2); Carbon Dioxide 23 mmol/L (22-30); Chloride 110 mmol/L (98-107); Glucose 105 mg/dL (74-99); Magnesium 1.9 mg/dL (1.6-2.3); Non-African American GFR(CKD) 65 (>60 ml/min/1.73 sqM); Potassium 4.0 mmol/L (3.5-5.1); Sodium 141 mmol/L (137-145); Total Protein 5.9 g/dL (6.3-8.2)
--- NOTE | 2025-01-07 12:21 | XR ---
EXAMINATION TYPE: XR chest 2V DATE OF EXAM: 01/07/2025 COMPARISON: 11/02/2024 CLINICAL INDICATION: Female, 79 years old with history of syncope; , TECHNIQUE: XR chest 2V views of the chest. FINDINGS: Elevated right hemidiaphragm with bilateral subsegmental consolidation. Interstitial pattern. Osteope kathia, atherosclerotic change aorta, arthropathy of the shoulders and degenerative change of the spine. IMPRESSION: 1. Basilar consolidation correlate for atelectasis versus pneumonia. Coarsening of the interstitium c ould be related to reduced inspiration rather than interstitial pneumonitis or venous congestion. Cor relate clinically. [facility], , 01/07/2025 12:18 PM
[2025-01-07 12:41] LABS: Basophils # (A) 0.03 10*3/uL (0.00-0.10); Basophils % (A) 0.3 %; Eosinophils # (A) 0.01 10*3/uL (0.04-0.35); Eosinophils % (A) 0.1 %; HCT 33.4 % (37.2-46.3); HGB 10.5 g/dL (12.0-15.0); Immature Platelet Fraction 6.5 % (1.1-6.1); Lymphocytes # (A) 0.94 10*3/uL (0.90-5.00); Lymphocytes % (A) 8.8 %; MCH 25.4 pg (27.0-32.0); MCHC 31.4 g/dL (32.0-37.0); Monocytes # (A) 0.47 10*3/uL (0.20-1.00); Monocytes % (A) 4.4 %; Neutrophils # (A) 9.25 10*3/uL (1.80-7.70); Neutrophils % (A) 86.1 %; Platelet Count 134 10*3/uL (140-440); RBC 4.14 10*6/uL (4.10-5.20); RDW 16.3 % (11.5-14.5); WBC 10.73 10*3/uL (4.50-10.00)
[2025-01-07 12:57] LABS: MCV 80.7 fL (80.0-97.0)
[2025-01-07 13:18] LABS: INR 1.1 (<1.2); Partial Thromboplastin Time 20.8 sec (22.0-30.0); Prothrombin Time 11.8 sec (10.0-12.5)
--- NOTE | 2025-01-07 14:15 | ED ---
Dizziness HPI - General Chief Complaint: Syncope Stated Complaint: Fall Time Seen by Provider: 01/07/25 10:05 Source: patient, EMS, RN notes reviewed Mode of arrival: EMS Limitations: no limitations - History of Present Illness Initial Comments: 79-year-old female presents emergency department with chief complaint of possible syncopal episode. Patient states she was in let her dog out states that she was at the door states that she went to sit down she has felt lightheaded and then was on the floor. Patient states she was unable to get up so she called for help. She is minor abrasion to her left arm she is up-to-date on her tetanus. Patient states she is unsure if she hit her head but denies any head or neck pain. Patient states that she feels much better now. Denies abdominal pain no nausea vomiting no chest pain no focal weakness. - Related Data Home Medications Medication Instructions Recorded Confirmed amLODIPine BESYLATE/BENAZEPRIL 1 cap PO DAILY 01/31/14 11/03/24 [Lotrel 5-20 MG] Clopidogrel [Plavix] 75 mg PO DAILY 09/09/15 11/03/24 Atorvastatin Calcium [Lipitor] 40 mg PO DAILY 11/03/24 11/03/24 Previous Rx's Medication Instructions Recorded Pantoprazole [Protonix] 40 mg PO DAILY #30 tab 11/12/24 Allergies Allergy/AdvReac Type Severity Reaction Status Date / Time No Known Allergies Allergy Verified 01/07/25 10:01 Review of Systems ROS Statement: Those systems with pertinent positive or pertinent negative responses have been documented in the HPI. ROS Other: All systems not noted in ROS Statement are negative. Past Medical History Past Medical History: Cancer, CVA/TIA, Hyperlipidemia, Hypertension Additional Past Medical History / Comment(s): UTERINE CANCER- OR, CHEMO, RADIATION IMPLANT. 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 RIGHT HAND WEAKNESS, CVA 2012. Right breast cyst biopsy 2012, benign History of Any Multi-Drug Resistant Organisms: None Reported Past Surgical History: Hysterectomy Additional Past Surgical History / Comment(s): JUL 2015 HYSTERECTOMY ([facility], DR. ROMANO). AUGUST 2015. PORTACATH D&C 1968 Past Anesthesia/Blood Transfusion Reactions: No Reported Reaction Past Psychological History: No Psychological Hx Reported Smoking Status: Former smoker Past Alcohol Use History: None Reported Past Drug Use History: None Reported - Past Family History Father Family Medical History: COPD Mother Family Medical History: Cancer, Coronary Artery Disease (CAD), Myocardial Infarction ([place]) Additional Family Medical History / Comment(s): BREAST General Exam Limitations: no limitations General appearance: alert, in no apparent distress Head exam: Present: atraumatic, normocephalic, normal inspection Eye exam: Present: normal appearance, PERRL, EOMI. Absent: scleral icterus, conjunctival injection, periorbital swelling ENT exam: Present: normal exam, normal oropharynx, mucous membranes moist Neck exam: Present: normal inspection, full ROM. Absent: tenderness, meningismus, lymphadenopathy Respiratory exam: Present: normal lung sounds bilaterally. Absent: respiratory distress, wheezes, rales, rhonchi, stridor Cardiovascular Exam: Present: regular rate, normal rhythm, normal heart sounds. Absent: systolic murmur, diastolic murmur, rubs, gallop, clicks GI/Abdominal exam: Present: soft, normal bowel sounds. Absent: distended, tenderness, guarding, rebound, rigid Extremities exam: Present: other (Skin tear left hand) Neurological exam: Present: alert, oriented X3, CN II-XII intact, reflexes normal. Absent: motor sensory deficit Course Vital Signs 01/07/25 01/07/25 09:55 14:50 Temperature 97.3 F L 97.8 F Pulse Rate 68 78 Respiratory 18 20 Rate Blood Pressure 128/62 125/52 O2 Sat by Pulse 97 96 Oximetry EKG Findings - EKG Comments: EKG Findings:: EKG performed at 10: 11 sinus rhythm rate of 66 [place] 148 QRS 104 QT/QTc 431/445 - EKG Results: EKG: interpreted by [facility]AY Medical Decision Making - Medical Decision Making Was pt. sent in by a medical professional or institution (, PA, PRODUCTION EXPEDITER, urgent care, hospital, or intermediate...) When possible be specific @ -No Did you speak to anyone other than the patient for history (EMS, parent, family, police, friend...)? What history was obtained from this source @ -No Did you review nursing and triage notes (agree or disagree)? Why? @ -I reviewed and agree with nursing and triage notes Were old charts reviewed (outside hosp., previous admission, EMS record, old EKG, old radiological studies, urgent care reports/EKG's, intermediate records)? Report findings @ -No old charts were reviewed Differential Diagnosis (chest pain, altered mental status, abdominal pain women, abdominal pain men, vaginal bleeding, weakness, fever, dyspnea, syncope, headache, dizziness, GI bleed, back pain, seizure, CVA, palpatations, mental health, musculoskeletal)? @ -Differential Syncope: Valvular disease, hypertrophic cardiomyopathy, pulmonary embolism, tamponade, tachycardia, bradycardia, [place], hypovolemia, hemorrhage, dissection, anemia, intracranial hemorrhage, seizure, hypoglycemia, carbon monoxide poisoning, this is not meant to be an all-inclusive list. EKG interpreted by me (3pts min.). @ -As above X-rays interpreted by me (1pt min.). @ -Chest x-ray shows possible congestion versus atelectasis CT interpreted by me (1pt min.). @ -CT brain, C-spine showing no acute intracranial hemorrhage, cervical fracture no skull fracture U/S interpreted by me (1pt. min.). @ -None done What testing was considered but not performed or refused? (CT, X-rays, U/S, labs)? Why? @ -None What meds were considered but not given or refused? Why? @ -None Did you discuss the management of the patient with other professionals (professionals i.e. , PA, PRODUCTION EXPEDITER, lab, RT, psych nurse, social economist, radiation control worker, teacher, chief legal officer, adult protective caseworker)? Give summary @ -No Was smoking cessation discussed for >3mins.? @ -No Was critical care preformed (if so, how long)? @ -No Were there social determinants of health that impacted care today? How? (Homelessness, low income, unemployed, alcoholism, drug addiction, transportation, low edu. Level, literacy, decrease access to med. care, custodial, rehab)? @ -No Was there de-escalation of care discussed even if they declined (Discuss DNR or withdrawal of care, Hospice)? DNR status @ -No What co-morbidities impacted this encounter? (DM, HTN, Smoking, COPD, CAD, Cancer, CVA, ARF, Chemo, Hep., AIDS, mental health diagnosis, sleep apnea, morbid obesity)? @ -None Was patient admitted / discharged? Hospital course, mention meds given and route, prescriptions, significant lab abnormalities, going to OR and other pertinent info. @ -disCharge patient presented for possible syncopal episode workup was negative patient states she feels improved this time she has no symptoms I did recommend inpatient evaluation for monitoring cardiology evaluation. Patient declined stating that she feels improved and is comfortable discharge. Undiagnosed new problem with uncertain prognosis? @ -No Drug Therapy requiring intensive monitoring for toxicity (Heparin, Nitro, Insulin, Cardizem)? @ -No Were any procedures done? @ -No Diagnosis/symptom? @ -syncope Acute, or Chronic, or Acute on Chronic? @ -[acute Uncomplicated (without systemic symptoms) or Complicated (systemic symptoms)? @ -complicated Side effects of treatment? @ -No Exacerbation, Progression, or Severe Exacerbation? @ -No Poses a threat to life or bodily function? How? (Chest pain, [place], [place], pneumonia, PE, COPD, DKA, ARF, appy, cholecystitis, CVA, Diverticulitis, Homicidal, Suicidal, threat to staff... and all critical care pts) @ -No - Lab Data Result diagrams: 01/07/25 12:13 01/07/25 11:15 Lab Results 01/07/25 01/07/25 01/07/25 Range/Units 11:15 11:15 12:13 WBC (4.50-10.00) 10*3/uL RBC (4.10-5.20) 10*6/uL Hgb (12.0-15.0) g/dL Hct (37.2-46.3) % MCV (80.0-97.0) fL MCH (27.0-32.0) pg MCHC (32.0-37.0) g/dL Plt Count (140-440) 10*3/uL MPV (9.5-12.2) fL Immature Gran % (Auto) % Neutrophils % % Lymphocytes % % Monocytes % % Eosinophils % % Basophils % % Immature Gran # (0.00-0.04) 10*3/uL Neutrophils # (1.80-7.70) 10*3/uL Lymphocytes # (0.90-5.00) 10*3/uL Monocytes # (0.20-1.00) 10*3/uL Eosinophils # (0.04-0.35) 10*3/uL Basophils # (0.00-0.10) 10*3/uL Immature Plt Fraction (1.1-6.1) % PT 11.8 (10.0-12.5) sec INR 1.1 (<1.2) APTT 20.8 L (22.0-30.0) sec Sodium 141 (137-145) mmol/L Potassium 4.0 (3.5-5.1) mmol/L Chloride 110 H (98-107) mmol/L Carbon Dioxide 23 (22-30) mmol/L Anion Gap 8 mmol/L BUN 25 H (7-17) mg/dL Creatinine 0.85 (0.52-1.04) mg/dL Est GFR (CKD-EPI)AfAm 75 (>60 ml/min/1.73 sqM) Est GFR (CKD-EPI)NonAf 65 (>60 ml/min/1.73 sqM) Glucose 105 H (74-99) mg/dL Calcium 9.0 (8.4-10.2) mg/dL Magnesium 1.9 (1.6-2.3) mg/dL Total Bilirubin 0.8 (0.2-1.3) mg/dL AST 24 (14-36) U/L ALT 14 (4-34) U/L Alkaline Phosphatase 74 (38-126) U/L Troponin I 0.014 (0.000-0.034) ng/mL Total Protein 5.9 L (6.3-8.2) g/dL Albumin 3.7 (3.5-5.0) g/dL 01/07/25 Range/Units 12:13 WBC 10.73 H (4.50-10.00) 10*3/uL RBC 4.14 (4.10-5.20) 10*6/uL Hgb 10.5 L (12.0-15.0) g/dL Hct 33.4 L (37.2-46.3) % MCV 80.7 D (80.0-97.0) fL MCH 25.4 L (27.0-32.0) pg MCHC 31.4 L (32.0-37.0) g/dL Plt Count 134 L (140-440) 10*3/uL MPV 11.5 (9.5-12.2) fL Immature Gran % (Auto) 0.3 % Neutrophils % 86.1 % Lymphocytes % 8.8 % Monocytes % 4.4 % Eosinophils % 0.1 % Basophils % 0.3 % Immature Gran # 0.03 (0.00-0.04) 10*3/uL Neutrophils # 9.25 H (1.80-7.70) 10*3/uL Lymphocytes # 0.94 (0.90-5.00) 10*3/uL Monocytes # 0.47 (0.20-1.00) 10*3/uL Eosinophils # 0.01 L (0.04-0.35) 10*3/uL Basophils # 0.03 (0.00-0.10) 10*3/uL Immature Plt Fraction 6.5 H (1.1-6.1) % PT (10.0-12.5) sec INR (<1.2) APTT (22.0-30.0) sec Sodium (137-145) mmol/L Potassium (3.5-5.1) mmol/L Chloride (98-107) mmol/L Carbon Dioxide (22-30) mmol/L Anion Gap mmol/L BUN (7-17) mg/dL Creatinine (0.52-1.04) mg/dL Est GFR (CKD-EPI)AfAm (>60 ml/min/1.73 sqM) Est GFR (CKD-EPI)NonAf (>60 ml/min/1.73 sqM) Glucose (74-99) mg/dL Calcium (8.4-10.2) mg/dL Magnesium (1.6-2.3) mg/dL Total Bilirubin (0.2-1.3) mg/dL AST (14-36) U/L ALT (4-34) U/L Alkaline Phosphatase (38-126) U/L Troponin I (0.000-0.034) ng/mL Total Protein (6.3-8.2) g/dL Albumin (3.5-5.0) g/dL Disposition Clinical Impression: Syncope, Dehydration Disposition: HOME SELF-CARE Condition: Stable Instructions (If sedation given, give patient instructions): Syncope (ED) Additional Instructions: Please return to the Emergency Department if symptoms worsen or any other concerns. Is patient prescribed a controlled substance at d/c from ED?: No Referrals: Damien Vargas DO [Primary Care Provider] - 1-2 days Time of Disposition: 14:15
[2025-01-07 14:52] VITALS: BP 125/52; PULSE 78; RESP 20; TEMP 97.8
== END 2025-01-07 14:53 | disposition home or self-care (01) ==
LOC: EC 09:53
DX: E86.0 Dehydration (principal); R55 Syncope and collapse; Z87.891 Personal history of nicotine dependence
CPT/HCPCS: 36415; 70450; 71046; 72125; 80053; 83735; 84484; 85025; 85610; 85730; 93005; 96360; 96361; 99285